=== PATIENT | female | born 1990 | race Caucasian/White ===

== ENCOUNTER 2023-04-02 19:05 | Outpatient (REF) | payer BC, SELFPAY ==
[2023-04-07 12:08] LABS: Age Gdln ACOG Testing Note (.); HPV Aptima Negative (Negative); IGP, Aptima HPV, rfx 16/18,45 Note (.)
== END 2023-04-02 19:06 | disposition home or self-care (01) ==
LOC: LAB 19:05
PROVIDERS: Visit Provider Obstetrics & Gynecology
DX: Z01.419 Encounter for gynecological examination (general) (routine) without abnormal findings (principal)
CPT/HCPCS: 87624; G0145

== ENCOUNTER 2023-04-09 17:57 | Outpatient (OUT) | payer BC, SELFPAY ==
--- NOTE | 2023-04-09 | US_ITS ---
The [address] [address] Patient Name: BRANDT OSORIO MRN: [id number] date: 1990 Sex: F Assigned Patient Location: Current Patient Location: Accession/Order Number: [id number] Exam Date: 04/09/2023 18:30 Report Date: 04/10/2023 06:46 At the request of: LILLIE ADAMS Procedure: US pelvis transvaginal EXAMINATION: US pelvis transvaginal HISTORY: Abnormal Uterine Bleeding, N93.9 , amenorrhea COMPARISON: No relevant comparison available. TECHNIQUE: Transabdominal and/or transvaginal sonographic examination was performed as indicated by examination type. FINDINGS: UTERUS: Normal size and appearance. Uterus size: 7.7 x 3.8 x 5.9 cm ENDOMETRIUM: Normal homogeneous appearance. Endometrial thickness: 11 mm RIGHT OVARY: Contains multiple small follicles. Blood flow present within ovary on color Doppler. Ovary size: 2.5 x 3.6 x 2.0 cm LEFT OVARY: Contains multiple small follicles. Duplex Doppler demonstrates normal waveform and flow; resistive index 0.6. Ovary size: 2.7 x 2.3 x 1.8 cm CUL-DE-SAC: Unremarkable. No significant free fluid. BLADDER: Unremarkable. OTHER: None. US/US pelvis transvaginal IMPRESSION: 1. Normal appearance of the uterus and endometrium. 2. Both ovaries contain multiple small follicles, but do not present the classic appearance for polycystic ovarian syndrome. Electronically authenticated by: WILIAN ROSAS Date: 04/10/2023 06:46
== END 2023-04-09 17:58 | disposition home or self-care (01) ==
PROVIDERS: Visit Provider Obstetrics & Gynecology
DX: N93.9 Abnormal uterine and vaginal bleeding, unspecified (principal)
CPT/HCPCS: 76830

== ENCOUNTER 2023-04-18 13:54 | Outpatient (OUT) | payer BC, SELFPAY ==
--- NOTE | 2023-04-18 14:02 | MM_ITS ---
Patient: BRANDT OSORIO Exam Date: 04/18/2023 : 1990 Gender:F Ordering : DR Shay Vaughn . Admission #: [id number] Family : Non-Staff Physician Order #: [id number] CLICK HERE TO VIEW EXAM RADIOLOGY REPORT PROCEDURE: MM TOMOSYNTHESIS DIAGNOSTIC BI, 04/18/2023, 14:11 US BREAST RT LIMITED, 04/18/2023, 14:35 COMPARISON: None. INDICATIONS: Breast Lump N63.15 Calculator Name NCI Breast Cancer Risk Assessment Tool 5 Year Breast Cancer Risk Not Applicable. Lifetime Breast Cancer Risk Not Applicable. Personal Breast Cancer No Personal Ovarian Cancer No Treatments None Family Cancers Mother with bile duct cancer at age 48; Grandfather-paternal with lung cancer at age 68. LOCATION: The [facility] BREAST COMPOSITION: Scattered areas fibroglandular density. FINDINGS: DIAGNOSTIC CATEGORY 2--BENIGN FINDING: Scattered benign-appearing lymph nodes are present. RIGHT BREAST: No significant suspicious finding. [place] marker indicates a palpable mass lower inner quadrant. No mammographic or ultrasound abnormality. Further evaluation should be based on clinical and physical exam LEFT BREAST: No significant suspicious finding. RECOMMENDATIONS: CLINICAL EVALUATION. PLEASE NOTE: A NORMAL MAMMOGRAM DOES NOT EXCLUDE THE POSSIBILITY OF BREAST CANCER. A CLINICALLY SUSPICIOUS PALPABLE LUMP SHOULD BE BIOPSIED. Dictated by: Nakul Silvestre MD on 04/18/2023 at 14:55 Approved by: Nakul Silvestre MD on 04/18/2023 at 14:57
--- NOTE | 2023-04-18 14:14 | US_ITS ---
Patient: BRANDT OSORIO Exam Date: 04/18/2023 : 1990 Gender:F Ordering : DR Shay Vaughn . Admission #: [id number] Family : Non-Staff Physician Order #: [id number] CLICK HERE TO VIEW EXAM RADIOLOGY REPORT PROCEDURE: MM TOMOSYNTHESIS DIAGNOSTIC BI, 04/18/2023, 14:11 US BREAST RT LIMITED, 04/18/2023, 14:35 COMPARISON: None. INDICATIONS: Breast Lump N63.15 Calculator Name NCI Breast Cancer Risk Assessment Tool 5 Year Breast Cancer Risk Not Applicable. Lifetime Breast Cancer Risk Not Applicable. Personal Breast Cancer No Personal Ovarian Cancer No Treatments None Family Cancers Mother with bile duct cancer at age 48; Grandfather-paternal with lung cancer at age 68. LOCATION: The [facility] BREAST COMPOSITION: Scattered areas fibroglandular density. FINDINGS: DIAGNOSTIC CATEGORY 2--BENIGN FINDING: Scattered benign-appearing lymph nodes are present. RIGHT BREAST: No significant suspicious finding. [place] marker indicates a palpable mass lower inner quadrant. No mammographic or ultrasound abnormality. Further evaluation should be based on clinical and physical exam LEFT BREAST: No significant suspicious finding. RECOMMENDATIONS: CLINICAL EVALUATION. PLEASE NOTE: A NORMAL MAMMOGRAM DOES NOT EXCLUDE THE POSSIBILITY OF BREAST CANCER. A CLINICALLY SUSPICIOUS PALPABLE LUMP SHOULD BE BIOPSIED. Dictated by: Nakul Silvestre MD on 04/18/2023 at 14:55 Approved by: Nakul Silvestre MD on 04/18/2023 at 14:57
== END 2023-04-18 13:55 | disposition home or self-care (01) ==
LOC: MAMMO 13:55
PROVIDERS: Visit Provider Obstetrics & Gynecology
DX: N63.15 Unspecified lump in the right breast, overlapping quadrants (principal); N63.14 Unspecified lump in the right breast, lower inner quadrant
CPT/HCPCS: 76642; 77066; G0279

== ENCOUNTER 2024-11-29 20:15 | Outpatient (REF) | payer BC, SELFPAY ==
--- OUTSIDE RECORDS SUMMARY | 2024-11-29 20:20 | XMS_ITS | CCD ---
Author Organization [facility] Care Team Providers Care Healthcare Representative Name Role Phone Unavailable Unavailable Unavailable Socrates, Bernarda F Unavailable Unavailable Socrates, Bernarda F Unavailable Unavailable Socrates, Bernarda F Unavailable Unavailable Socrates, Bernarda F Unavailable Unavailable Socrates, Bernarda F Unavailable Unavailable Socrates, Bernarda F Unavailable Unavailable Jose Cruz Martinez Primary Care Provider [phone] Jose Cruz Martinez MD Primary Care Provider Jose Cruz Martinez MD Primary Care Provider LOGAN RADFORD Attending Unavailable JUNIOR, FABIANA MARCELLA Referring Unavailable JUNIOR, FABIANA MARCELLA Admitting Unavailable JOSE CRUZ MARTINEZ Primary Care Unavailable SOCRATES, BERNARDA F. S. Admitting Unavailabl e SOCRATES, BERNARDA F. S. Attending Unavailabl e JOSE CRUZ MARTINEZ Primary Care Unavailable JOSE CRUZ MARTINEZ Primary Care Unavailable ZENAIDA LIZ Admitting Unavailable ZENAIDA LIZ Attending Unavailable JOSE CRUZ MARTINEZ Primary Care Unavailable MARIAH SINHA Attending Unavailable JUNIOR, FABIANA MARCELLA Admitting Unavailable JUNIOR, FABIANA MARCELLA Referring Unavailable MARCELLO BALTAZAR Attending Unavailable JOSE CRUZ MARTINEZ Primary Care Unavailable JUNIOR, FABIANA MARCELLA Referring Unavailable JUNIOR, FABIANA MARCELLA Admitting Unavailable MICHELLE, JOSE CRUZ Locke Primary Care Unavailable MARIAH SINHA Attending Unavailable JUNIOR, FABIANA MARCELLA Referring Unavailable JUNIOR, FABIANA MARCELLA Admitting Unavailable MICHELLE, JOSE CRUZ Locke Primary Care Unavailable FRANKY, MARCELLO Attending Unavailable JUNIOR, FABIANA MARCELLA Referring Unavailable JUNIOR, FABIANA MARCELLA Admitting Unavailable HEMEKENNA, JOSE CRUZ Locke Primary Care Unavailable MARCELLO BALTAZAR Attending Unavailable JUNIOR, FABIANA MARCELLA Referring Unavailable JUNIOR, FABIANA MARCELLA Admitting Unavailable [facility] [place] [facility] Primary Care Unavailable MARIAH SINHA Attending Unavailable JUNIOR, FABIANA MARCELLA Referring Unavailable JUNIOR, FABIANA MARCELLA Admitting Unavailable MARIAH SINHA Attending Unavailable JUNIOR, FABIANA MARCELLA Referring Unavailable JUNIOR, FABIANA MARCELLA Admitting Unavailable [facility] Primary Care Unavailable ALICE AZEVEDO Attending Unavailable HEMEYER, JOSE CRUZ Locke Primary Care Unavailable BRYAN, DR MOREIRA Admitting Unavailable BRYAN, DR MOREIRA Attending Unavailable HEMEYER, DR TAM Primary Care Unavailable BRYAN, DR MOREIRA Consulting Unavailable BRYAN, DR MOREIRA Admitting Unavailable BRYAN, DR MOREIRA Attending Unavailable HEMEYER, DR TAM Primary Care Unavailable BRYAN, DR MOREIRA Consulting Unavailable NEDRA HUMPHREY Consulting Unavailable BRYAN, DR MOREIRA Admitting Unavailable BRYAN, DR MOREIRA Attending Unavailable HEMEYER, DR TAM Primary Care Unavailable BRYAN, DR MOREIRA Consulting Unavailable BRYAN, DR MOREIRA Admitting Unavailable BRYAN, DR MOREIRA Attending Unavailable HEMEYER, DR TAM Primary Care Unavailable [facility] Primary Care Unavailable BERNARDA CROWELL Attending UnavailJose Cruz Cabrera MD Primary Care Provider Amy SIMPSON, Ronda Hays Unavailable Jose Cruz Martienz MD Primary Care Provider UNA JOHN Attending Unavailable NANDO PARRY Attending Unavailable UNA JOHN Attending Unavailable UNA JOHN Attending Unavailable IFRAH BLANCA Attending Unavailable UNA JOHN Attending Unavailable Medications Current Medications Medication Drug Class(es) Dates Sig (Normalized) Sig (Original) acetaminophen 325 mg oral tablet (4 sources) Start: 11-27-2020 End: 12-07-2020 take 2 tablets by mouth every four hours as needed acetaminophen (TYLENOL) 325 MG tablet Take 2 (two) tablets (650 mg total) by mouth every 4 (four) hours as needed . 30 tablet 0 11/27/2020 12/07/2020 Active Start: 11-25-2020 End: 11-27-2020 take 1 tablet by mouth every four hours as needed for pain 650 mg, Oral, Every 4 hours PRN, mild pain, Starting on 11/25/20 at 2035, End: 11-27-2020 take 2 tablets by mouth every six hours as needed for pain acetaminophen (TYLENOL) 500 MG tablet Indications: back pain Take 1,000 mg by mouth every 6 (six) hours as needed for pain Prn Reasons: backache. 0 11/27/2020 Discontinued (Stop Taking at Discharge) benzonatate 200 mg oral capsule (2 sources) Non-narcotic Antitussive Start: 05-08-2024 End: 05-15-2024 take 1 capsule by mouth three times daily as needed for cough benzonatate (Tessalon) 200 MG capsule Indications: Acute bronchitis, unspecified organism Take 1 capsule (200 mg) by mouth 3 (three) times a day as needed for cough for up to 7 days Do not crush or chew. 21 capsule 05/08/2024 05/15/2024 Active cefdinir 300 mg oral capsule (2 sources) Cephalosporin Antibacterial Start: 05-08-2024 End: 05-18-2024 take 1 capsule by mouth in the morning cefdinir (Omnicef) 300 MG capsule Indications: Acute bronchitis, unspecified organism Take 1 capsule (300 mg) by mouth in the morning and 1 capsule (300 mg) before bedtime. Do all this for 10 days. 20 capsule 05/08/2024 05/18/2024 Active ferrous sulfate 325 mg oral tablet (4 sources) take 1 tablet by mouth twice daily ferrous sulfate 325 (65 FE) MG tablet Take 325 mg by mouth 2 (two) times a day . 0 Active ibuprofen 600 mg oral tablet (3 sources) Nonsteroidal Anti-inflammatory Drug Start: 11-26-2020 End: 12-27-2020 take 1 tablet by mouth every six hours ibuprofen (ADVIL,MOTRIN) 600 MG tablet Take 1 (one) tablet (600 mg total) by mouth every 6 (six) hours . 120 tablet 0 11/27/2020 12/27/2020 Active Start: 11-25-2020 End: 11-25-2020 take 1 tablet by mouth every twenty-four hours as needed for pain 800 mg, Oral, Once as needed, mild pain, Starting on 11/25/20 at 0131, For 1 dose, Labor & Delivery Give with food. DO NOT GIVE WITH TORADOL Do Not Crush or Chew if administering orally due to bitter taste. May be crushed if given via tube. predniSONE 10 mg oral tablet (2 sources) Start: 05-08-2024 End: 05-16-2024 take 1 tablet by mouth three times daily, then take 1 tablet by mouth twice daily, then take 1 tablet by mouth once daily predniSONE (Deltasone) 10 MG tablet Indications: Acute bronchitis, unspecified organism Take 1 tablet (10 mg) by mouth 3 (three) times a day for 3 days, THEN 1 tablet (10 mg) 2 (two) times a day for 3 days, THEN 1 tablet (10 mg) Daily for 3 days. 18 tablet 05/08/2024 05/16/2024 Active vitamin with Ca-Iron-FA 27-1 mg Tab (4 sources) take 1 tablet by mouth once daily vitamin with Ca-Iron-FA 27-1 mg Tab Take 1 tablet by mouth daily . 0 Suspended take 1 tablet by mouth once cyrus y vitamin with Ca-Iron-FA 27-1 mg Tab Take 1 tablet by mouth daily . 0 Active 1 mg dose 1.5 ml semaglutide 1.34 mg/ml pen injector (15 sources) Start: 08-18-2024 End: 11-12-2024 inject 1 mg by subcutaneous injection every week semaglutide (Ozempic, 1 MG/DOSE,) 2 MG/1.5ML solution pen-injector Indications: Metabolic disorder, unspecified Inject 1 mg under the skin 1 (one) time per week 2 each 3 10/13/2024 Active Start: 07-21-2024 semaglutide (O zempic) 2 MG/1.5ML solution pen-injector Indications: Encounter for weight management FIRST MONTH inject 0.25 mg under the skin once weekly; then SECOND MONTH inject 0.5 mg under the skin 1 (one) time per week for 4 doses. 4.5 mL 1 07/21/2024 Active Completed/Discontinued Medications Medication Drug Class(es) Dates Sig (Normalized) Sig (Original) aluminum hydroxide 40 mg/ml / magnesium hydroxide 40 mg/ml / simethicone 4 mg/ml oral suspension (1 source) Start: 11-25-2020 End: 11-27-2020 take 30 mL by mouth every four hours as needed 30 mL, Oral, Every 4 hours PRN, indigestion, Starting on 11/25/20 at 2035, ampicillin 1000 mg in sodium chloride (NS) 0.9% 100 mL MBP (1 source) Start: 11-24-2020 End: 11-25-2020 take 1000 mg intravenously every four hours ampicillin 1000 mg in sodium chloride (NS) 0.9% 100 mL MBP ampicillin 2000 mg in sodium chloride (NS) 0.9% 100 mL MBP (1 source) Start: 11-24-2020 End: 11-24-2020 ampicillin 2000 mg in sodium chloride (NS) 0.9% 100 mL MBP brompheniramine maleate 0.4 mg/ml / dextromethorphan hydrobromide 2 mg/ml / pseudoephedrine hydrochloride 6 mg/ml oral solution (2 sources) alpha-Adrenergic Agonist, Uncompetitive C-ltgiep-S-aspartat e Receptor Antagonist, Sigma-1 Agonist Start: 08-01-2024 End: 08-08-2024 take 5-10 mL by mouth four times daily as needed for cough brompheniramine- pseudoephedrine- DM 30-2-10 MG/5ML syrup Indications: Cough, unspecified type , Influenza A Take 5-10 mL by mouth 4 (four) times a day as needed for cough or congestion for up to 7 days 118 mL 08/01/2024 08/08/2024 calcium chloride 0.0014 meq/ml / potassium chloride 0.004 meq/ml / sodium chloride 0.103 meq/ml / sodium lactate 0.028 meq/ml injectable solution (2 sources) Start: 11-25-2020 End: 11-25-2020 0-999 mL/hr, Intravenous, Continuous, Starting on 11/25/20 at 0230, L&D Pre-Delivery Run @ 125 mL/hr or as follows: Fo r stress, uterine tachysystole, non-reassuring status during induction or cervical-ripenin g, increase maintenance IV to 999 mL/hr. Upon resolution of tachysystole, or return to category 2 or above monitor strip, resume IV at previous rate. Start: 11-24-2020 End: 11-25-2020 lactated Ringers infusion ceFAZolin 2000 mg injection (1 source) Cephalosporin Antibacterial Start: 11-25-2020 End: 11-25-2020 ceFAZolin (ANCEF) IVPB 2 g (premix) Start: 11-25-2020 End: 11-25-2020 ceFAZolin (ANCEF) IVPB 2 g ( premix) diphenhydrAMINE (1 source) Histamine-1 Receptor Antagonist Start: 11-25-2020 End: 11-27-2020 take 1 tablet by mouth every six hours as needed diphenhydrAMINE (BENADRYL) tablet 25 mg docusate sodium 100 mg oral capsule (3 sources) Start: 11-25-2020 End: 12-07-2020 take 100 mg by mouth twice daily 100 mg, Oral, 2 times daily, First dose on 11/25/20 at 2130, Hold for loose stools DO NOT CRUSH OR CHEW. 1 ml HYDROmorphone hydrochloride 1 mg/ml injection (1 source) Opioid Agonist Start: 11-25-2020 End: 11-25-2020 HYDROmorphone (DILAUDID) injection 1 mg Start: 11-25-2020 End: 11-25-2020 HYDROmorphone (DILAUDID) inj ection 1 mg 24 hr metFORMIN hydrochloride 500 mg extended release oral tablet (5 sources) Biguanide Start: 04-22-2023 End: 07-21-2024 take 1 tablet by mouth every twenty-four hours at mealtime metFORMIN XR (Glucophage-XR) 500 MG 24 hr tablet Indications: Metabolic disorder, unspecified Take 1 tablet (500 mg) by mouth in the evening. Take with meals. Do not crush, chew, or split. 30 tablet 11 04/22/2023 07/21/2024 Discontinued (Other) nabumetone 750 mg oral tablet (5 sources) Nonsteroidal Anti-inflammatory Drug Start: 02-19-2022 End: 07-21-2024 nabumetone (Relafen) 750 MG tablet 1 (one) time each day at the same time 02/19/2022 07/21/2024 Discontinued (Other) 1 ml nalbuphine hydrochloride 10 mg/ml injection (3 sources) Opioid Agonist/Antagonis t Start: 11-25-2020 End: 11-25-2020 take 10 mg intravenously every three hours as needed nalbuphine (NUBAIN) injection 10 mg Start: 11-24-2020 End: 11-24-2020 nalbuphine (NUBAIN) 10 mg/mL injection - ADS Override Pull Start: 11-24-2020 End: 11-25-2020 take 5 mg intravenously every three hours as needed nalbuphine (NUBAIN) injection 5 mg naloxone (NARCAN) injection 0.1 mg (1 source) Start: 11-26-2020 End: 11-27-2020 naloxone (NARCAN) injection 0.1 mg oxyCODONE hydrochloride 5 mg oral tablet (2 sources) Opioid Agonist Start: 11-26-2020 End: 11-26-2020 oxyCODONE (ROXICODONE) immediate release tablet 5 mg Start: 11-26-2020 End: 11-26-2020 oxyCODONE (ROXICODONE) immed iate release tablet 5 mg oxytocin in lactated ringers (PITOCIN) 20 unit/1,000 mL infusion (1 source) Start: 11-25-2020 End: 11-25-2020 oxytocin in lactated ringers (PITOCIN) 20 unit/1,000 mL infusion polyethylene glycol 3350 [id number] mg powder for oral solution (1 source) Osmotic Laxative Start: 11-26-2020 End: 11-27-2020 17 g, Oral, Daily, First dose on 11/26/20 at 0900, rho(d) immune globulin (RHOPHYLAC) injection 300 mcg (1 source) Start: 11-25-2020 End: 11-27-2020 inject 300 ug by intramuscular injection every twenty-four hours as needed rho(d) immune globulin (RHOPHYLAC) injection 300 mcg simethicone 80 mg chewable tablet (1 source) Start: 11-25-2020 End: 11-27-2020 80 mg, Oral, After meals as needed, flatulence, gas discomfort, Starting on 11/25/20 at 2035, 1000 ml sodium chloride 9 mg/ml injection (1 source) Start: 11-25-2020 End: 11-27-2020 0-150 mL/hr, Intravenous, As needed, To flush line after IV infusions when no maintenance IV ordered or a compatibility issue. Infuse 20ml at the same rate as the secondary infusion, Starting on 11/25/20 at 2034, L&D Post-Delivery Run as Primary IV. NOT intended for KVO. sodium chloride 0.9 % (NS) with ampicillin (OMNIPEN) - ADS Override Pull (1 source) Start: 11-24-2020 End: 11-24-2020 sodium chloride 0.9 % (NS) with ampicillin (OMNIPEN) - ADS Override Pull Problems Active Problems Problem Classification Problem Date Documented Date Episodic/Chronic Acute bronchitis (2 sources) Acute bronchitis; Translations: [Acute bronchitis, unspecified] 05-08-2024 Episodic Administrative/social admission (4 sources) Patient encounter status; Translations: [Persons encountering health services in other specified circumstances] 07-21-2024 Episodic Early or threatened labor (2 sources) Premature labor; Translations: [ labor without delivery, third trimester] Onset: 11-25-2020 Episodic Immunizations and screening for infectious disease (1 source) Encounter for screening for human papillomavirus (HPV); Translations: [ENC SCREENING HUMAN PAPILLOMAVIRUS] Onset: 01-26-2022 Episodic Influenza (2 sources) Influenza due to Influenza A virus; Translations: [Influenza due to other identified influenza virus with other respiratory manifestations] 08-01-2024 Episodic Menstrual disorders (4 sources) Irregular menstruation, unspecified; Translations: [IRREGULAR MENSTRUATION UNSPECIFIED] Onset: 04-16-2022 Chronic Other connective tissue disease (4 sources) Trochanteric bursitis of left hip; Translations: [Trochanteric bursitis, left hip] Onset: 09-11-2020 Episodic Other connective tissue disease (15 sources) Trochanteric bursitis of left hip; Translations: [Trochanteric bursitis of left hip] Onset: 09-11-2020 09-11-2020 Other endocrine disorders (5 sources) Polycystic ovarian syndrome; Translations: [POLYCYSTIC OVARIAN SYNDROME] Onset: 02-19-2022 Chronic Other lower respiratory disease (2 sources) Cough; Translations: [Cough, unspecified type] 08-01-2024 Episodic Other non-traumatic joint disorders (19 sources) Hip pain; Translations: [Pain in left hip] Onset: 09-11-2020 09-11-2020 Episodic Other nutritional; endocrine; and metabolic disorders (12 sources) Obesity caused by energy imbalance; Translations: [Other obesity due to excess calories] Onset: 01-28-2024 01-28-2024 Chronic Other nutritional; endocrine; and metabolic disorders (2 sources) Metabolic disease; Translations: [Metabolic disorder, unspecified] Onset: 10-13-2024 10-13-2024 Chronic Other screening for suspected conditions (not mental disorders or infectious disease) (4 sources) Encounter for screening for malignant neoplasm of cervix; Translations: [ENC SCREENING MALIG NEOPLASM CERV] Onset: 01-23-2022 Episodic Otitis media and related conditions (2 sources) Acute bilateral otitis media ; Translations: [Otitis media, unspecified, bilateral] 05-08-2024 Episodic Residual codes; unclassified (2 sources) Past history of procedure; Translations: [Personal history of other complications of , childbirth and the puerperium] Onset: 11-25-2020 Episodic Past or Other Problems Problem Classification Problem Date Documented Da te Episodic/Chronic Hypertension complicating ; childbirth and the puerperium (12 sources) Pre-eclampsia; Translations: [Unspecified pre-eclampsia, unspecified trimester] Onset: 11-29-2020 01-28-2024 Episodic Other and delivery including normal (2 sources) Encounter for routine follow-up; Translations: [Encounter for routine follow-up] Onset: 01-15-2021 Episodic Results Test Name Value Interpretation Reference Range Facility No Panel InformationOrdered By: Basim Parekh on 08-01-2024 INFLUENZA A Positive Negative [facility] INFLUENZA B Negative Negative [facility] Interpretation and review of laboratory results Abnormal [facility] DHEA SERUMon 04-21-2022 Dehydroepiandrosterone (DHEA) 283 ng/dL Normal 31-701 [facility] Comment on above: Result Comment: Age 1 - 5 years 0 - 67 6 - 7 years 0 - 110 8 - 10 years 0 - 185 11 - 12 years 0 - 201 13 - 14 years 0 - 318 15 - 16 years 39 - 481 17 - 19 years 40 - 491 >19 years 31 - 701 Performed By: #### D CAMILLE. #### [facility] [address] [place] [address] Dr. Kenji Olsen DHEA-SULFATEon 04-17-2022 DHEA-Sulfate 294.0 ug/dL Normal 84.8-378.[address] [facility] Comment on above: Performed By: #### D СЕРГЕЙ #### [facility] [address] [place] [address] Dr. Kenji Olsen FSHon 04-17-2022 FSH 2.2 mIU/mL Normal [facility] Comment on above: Result Comment: Adul t Female: Follicular phase 3.5 - 12.5 Ovulation phase 4.7 - 21.5 Luteal phase 1.7 - 7.7 Postmenopausal 25.8 - 134.8 Performed By: #### L BCFS #### [facility] [address] [place] [address] Dr. Kenji Olsen LUTEINIZING HORMONE (LH)on 1 LH 8.0 mIU/mL Normal [facility] Comment on above: Result Comment: Adul t Female: Follicular phase 2.4 - 12.6 Ovulation phase 14.0 - 95.6 Luteal phase 1.0 - 11.4 Postmenopausal 7.7 - 58.5 Performed By: #### L BCLH #### [facility] [address] [place] [address] Dr. Kenji Olsen CBC AUTO DIFFon 04-16-2022 BASO # 0.0 103/ul Normal 0.0-0.1 [facility] Comment on above: Performed By: #### C BC #### [facility] [address] [place] [address] Dr. Kenji Olsen Basophils/100 WBC (Bld) 0.4 % Normal 0.2-2.0 [facility] Comment on above: Performed By: #### C BC #### [facility] [address] [place] [address] Dr. Kenji Olsen EO # 0.3 103/ul Normal 0.0-0.7 [facility] Comment on above: Performed By: #### C BC #### [facility] [address] [place] [address] Dr. Kenji Olsen Eosinophils/100 WBC (Bld) 3.4 % Normal 0.9-7.0 [facility] Comment on above: Performed By: #### C BC #### [facility] [address] [place] [address] Dr. Kenji Olsen Erythrocyte distribution width (RBC) [Ratio] 14.4 % Normal 11.0-15.0 [facility] Comment on above: Performed By: #### C BC #### [facility] [address] [place] [address] Dr. Kenji Olsen Hematocrit (Bld) [Volume fraction] 41.5 % Normal 36.0-48.0 [facility] Comment on above: Performed By: #### C BC #### [facility] [address] [place] [address] Dr. Kenji Olsen Hemoglobin (Bld) [Mass/Vol] 13.1 g/dL Normal 12.0-16.0 [facility] Comment on above: Performed By: #### C BC #### [facility] [address] [place] [address] Dr. Kenji Olsen IG # 0.03 10e3/ul Normal 0.00-0.03 [facility] Comment on above: Performed By: #### C BC #### [facility] [address] [place] [address] Dr. Kenji Olsen IG % 0.3 % Normal 0.0-0.5 [facility] Comment on above: Performed By: #### C BC #### [facility] [address] [place] [address] Dr. Kenji Olsen LYMPH # 3.3 103/ul Normal 1.2-3.8 [facility] Comment on above: Performed By: #### C BC #### [facility] [address] [place] [address] Dr. Kenji Olsen Lymphocytes/100 WBC (Bld) 33.1 % Normal 20.5-60.0 [facility] Comment on above: Performed By: #### C BC #### [facility] [address] [place] [address] Dr. Kenji Olsen MANUAL DIFF REQ NO Normal [facility] Comment on above: Performed By: #### C BC #### [facility] [address] [address] [address] Kenji Olsen MCH (RBC) [Entitic mass] 26.5 pg Critically low 26.7-34 .0 [facility] Comment on above: Performed By: #### C BC #### [facility] [address] [address] [address] Kenji Olsen MCHC (RBC) [Mass/Vol] 31.6 g/dL Normal 29.9-35.2 [facility] Comment on above: Performed By: #### C BC #### [facility] [address] [place] [address] Dr. Kenji Olsen MCV (RBC) [Entitic vol] 83.8 fL Normal 81.0-99.0 [facility] Comment on above: Performed By: #### C BC #### [facility] [address] [place] [address] Dr. Kenji Olsen MONO # 0.5 103/ul Normal 0.3-0.8 [facility] Comment on above: Performed By: #### C BC #### [facility] [address] [place] [address] Dr. Kenji Olsen Monocytes/100 WBC (Bld) 4.9 % Normal 1.7-12.0 [facility] Comment on above: Performed By: #### C BC #### [facility] [address] [place] [address] Dr. Kenji Olsen NEUT # 5.7 103/ul Normal 1.4-6.5 [facility] Comment on above: Performed By: #### C BC #### [facility] [address] [place] [address] Dr. Kenji Olsen Neutrophils/100 WBC (Bld) 57.9 % Normal 43.0-75.0 [facility] Comment on above: Performed By: #### C BC #### [facility] [address] [place] [address] Dr. Kenji Olsen Platelet mean volume (Bld) [Entitic vol] 9.2 fL Critically low 9.5-13.5 [facility] Comment on above: Performed By: #### C BC #### [facility] [address] [address] [address] Kenji Olsen PLT 392 103/ul Normal 150-450 [facility] Comment on above: Performed By: #### C BC #### [facility] [address] [address] [address] Kenji Olsen RBC 4.95 106/ul Normal 4.20-5.40 [facility] Comment on above: Performed By: #### C BC #### [facility] [address] [address] [address] Kenji Olsen WBC 9.9 103/ul Normal 4.0-11.0 [facility] Comment on above: Performed By: #### C BC #### [facility] [address] [place] [address] Dr. Kenji Olsen PREG QUANT HCGon 04-16-2022 HCG QUANT <1 Normal [facility] Comment on above: Performed By: #### P REGQNT, TSH #### [facility] [address] [place] [address] Dr. Kenji Olsen HCG RANGE SEE BELOW Normal [facility] Comment on above: Result Comment: 5-50 0.2-1 WEEK 50-500 1-2 WEEKS 100-5,000 2-3 WEEKS 500-10,000 3-4 WEEKS 1,000-50,000 4-5 WEEKS 10,000-100,000 5-6 WEEKS 15,000-200,000 6-8 WEEKS 10,000-100,000 2-3 MONTHS Performed By: #### P REGQNT, TSH #### [facility] [address] [place] [address] Dr. Kenji Olsen TSHon 04-16-2022 TSH 0.835 uIU/mL Normal 0.358-3.[address] [facility] Comment on above: Performed By: #### P REGQNT, TSH #### [facility] [address] [place] [address] Dr. Kenji Olsen US PELVIS AND TRANSVAGon US PELVIS AND TRANSVAG EXAM: Pelvic ultrasound HISTORY: . Polycystic ovary syndrome . COMPARISON: None. TECHNIQUE: Transabdominal and transvaginal scanning was performed FINDINGS: Scanning of the pelvis demonstrates an anteverted uterus ring 7 x 4.3 x 3.3 cm. Endometrial complex measures 8 mm. Right ovary measures 3.6 x 2.8 x 2.2 cm. Color-flow is noted. Resistive indexes 0.55. No masses are noted. There are a few small follicles. Left ovary measures 3 x 2.7 x 2 cm. Color-flow is noted. Resistive indexes 0.58. There are a few small follicles. No fluid is noted in the cul-de-sac. IMPRESSION: 1. Normal-appearing uterus. 2. Normal-appearing ovaries. Electronically authenticated by: NEDRA HUMPHREY Date: 2022-02-20 08:11 [facility] PAP ACOG PANEL 2: 23 to 31on 01-28-2022 . . Normal [facility] Comment on above: Performed By: #### [id number] #### [facility] [address] [address] [address] Kenji Olsen Age Gdln ACOG Testing 21-29 Normal [facility] Comment on above: Performed By: #### [id number] #### [facility] [address] [id number] Dr. Kenji Olsen DIAGNOSIS: Comment Normal [facility] Comment on above: Result Comment: NEGA TIVE FOR INTRAEPITHELIAL LESION OR MALIGNANCY. Performed By: #### [id number] #### [facility] [address] [address] [address] Kenji Olsen Methodology: Comment Normal [facility] Comment on above: Result Comment: This liquid based ThinPrep(R) pap test was screened with the use of an image guided system. Performed By: #### [id number] #### [facility] [address] [place] [address] Dr. Kenji Olsen Note: Comment Normal [facility] Comment on above: Result Comment: The Pap smear is a screening test designed to aid in the detection of premalignant and malignant conditions of the uterine cervix. It is not a diagnostic procedure and should not be used as the sole means of detecting cervical cancer. Both false-positive and false-negative reports do occur. . Performed By: #### [id number] #### [facility] [address] [place] [address] Dr. Kenji Olsen Performed by: Comment Normal [facility] Comment on above: Result Comment: Amy Arechiga Natural Sciences Manager (ASCP) Performed By: #### 4 [id number] #### [facility] [address] [place] [address] Dr. Kenji Olsen Reflex Criteria: Comment Normal [facility] Comment on above: Result Comment: The HPV DNA reflex criteria were not met with this specimen result therefore, no HPV testing was performed. . Performed By: #### 4 [id number] #### [facility] [address] [place] [address] Dr. Kenji Olsen Specimen adequacy: Comment Normal [facility] Comment on above: Result Comment: Sati sfactory for evaluation. Endocervical and/or squamous metaplastic cells (endocervical component) are present. Performed By: #### 4 [id number] #### [facility] [address] [place] [address] Dr. Kenji Olsen Alkaline Phosphataseon 05-29 ALP [Catalytic activity/Vol] 118 U/L High 32-92 [facility] Comment on above: Performed By: #### A PHIL BILIT, UNA #### [facility] [address] [place] [address] [place] Amylaseon 05-29-2021 Amylase [Catalytic activity/Vol] 43 U/L Normal 28-100 [facility] Comment on above: Result Comment: PERF ORMED BY: [facility] [address] [place] [address] PATHOLOGIST RECREATIONAL COUNSELOR KEYON OROPEZA M.D. Performed By: #### A LP BILIT, UNA #### [facility] [address] [place] [address] [place] Bilirubin,Totalon 05-29-2021 Bilirubin [Mass/Vol] 0.3 mg/dL Normal 0.3-1.2 [facility] Comment on above: Performed By: #### A LP, KYRA, UNA #### [facility] [address] [place] [address] [place] HCG,Urineon 05-29-2021 Beta HCG ( test) Ql (U) Negative Normal [facility] Comment on above: Result Comment: PERF ORMED BY: [address] [place] [address] PATHOLOGIST RECREATIONAL COUNSELOR KEYON OROPEZA M.D. Performed By: #### U HCG #### [facility] [address] [place] [address] [place] Jose E 05-29-2021 L - -------- Specimen: [id number] Received: 05/29/21 Status: ELIZABETH Tabareselmo Num: [id number] Spec Type: Surgical Subm Dr: Sriram León DO Tissues: A Gallbladder (GALLBLADDER) Procedures: HE Stain, Gross/Micro L3 -------- Patient Age/Sex Location Account Attending Physician -------- Brandt Peres [place] [id number] Sriram León, DO -------- SPEC NUM: [id number] RECD: 05/29/21 STATUS: ELIZABETH PACE NUM: [id number] NADEEN: 05/29/21- DR: Sriram Lóen DO ENTERED: 05/29/[address]: SINDY TYPE: Surgical DEPT: S ORDERED: HE Stain, Gross/Micro L3 ORDERED: HE Stain, Gross/Micro L3 Pathological Diagnosis Gallbladder, cholecystectomy: - Cholelithiasis, cholesterolosis and focal mucosal intestinal metaplasia. - One lymph node, negative for malignancy. Clinical Information Cholelithiasis Gross Description Received in formalin labeled with the patient's name, number and gallbladder is a 8.8 x 3.2 x 2.5 cm intact and distended gallbladder. The serosa is hidalgo-pink, finely vascularized and smooth, while the adventitia is finely roughened. The specimen is opened to reveal a hidalgo to slightly speckled yellow and soft mucosa. There is a wall thickness averaging 0.2 cm. Within the lumen is green tenacious bile and a 2.2 cm ovoid smooth green cholelith. No lesions are identified. A 0.8 cm periductal lymph node is identified. [employer] sections are submitted in one cassette labeled A1. Type of Fixative: 10% Neutral Buffered Formalin (KOFI/RUPINDER) Microscopic Description One glass slide with H E stained material has been examined. The microscopic findings support the above pathologic diagnosis. -------- Specimen: [id number] Received: 05/29/21 Status: ELIZABETH Pace Num: [id number] Spec Type: Surgical Subm Dr: Sriram León DO Tissues: A Gallbladder (GALLBLADDER) Procedures: HE Stain, Gross/Micro L3 -------- Patient: Brandt Peres [id number] (Continued) -------- Specimen: [id number] Received: 05/29/21 (Continued) Signed (signature on file) Julio Grullon MD 05/30/21 1325 -------- Specimen: [id number] Received: 05/29/21 Status: ELIZABETH Pace Num: [id number] Spec Type: Surgical Subm Dr: Sriram León DO Tissues: A Gallbladder (GALLBLADDER) Procedures: HE Stain, Gross/Micro L3 -------- Patient: Brandt Peres [id number] (Continued) -------- Specimen: [id number] Received: 05/29/21 (Continued) CPT Codes 65398 -------- -------- Specimen: [id number] Received: 05/29/21 Status: ELIZABETH Pace Num: [id number] Spec Type: Surgical Subm Dr: Sriram León DO Tissues: A Gallbladder (GALLBLADDER) Procedures: HE Stain, Gross/Micro L3 -------- Patient: Brandt Peres [id number] (Continued) -------- Signed (signature on file) Julio Grullon MD 05/30/[address] [facility] [place] [place] SARS-CoV-2 (COVID-19) RNA VIDHI+probe Ql (Unsp spec) Negative Normal Negative [facility] Comment on above: Order Comment: Healt hcare Worker?: N Result Comment: Testing for SARS-CoV-2 by RT-PCR This test was developed and its performance characteristics determined by [employer]) and validated at the [facility]. This test has not been FDA cleared or approved. This test has been authorized by FDA under an Emergency Use Authorization (EUA). This test has been validated in accordance with the FDA's Guidance Document (Policy for Diagnostics Testing in Laboratories Certified to Perform High Complexity Testing under CLIA prior to Emergency Use Authorization for Coronavirus Disease-2019 during the Public Health Emergency) issued on September 30, 2019. This test is only authorized for the duration of time the declaration that circumstances exist justifying the authorization of the emergency use of in vitro diagnostic tests for detection of SARS-CoV-2 virus and/or diagnosis of COVID-19 infection under section 564(b)(1) of the Act, 21 U.S.C. 360bbb-3(b)(1), unless the authorization is terminated or revoked sooner. PERFORMED BY: [facility] [place] [address] PATHOLOGIST RECREATIONAL COUNSELOR KEYON OROPEZA M.D. Performed By: #### C OVID 19 [facility] #### [facility] [address] Comprehensive metabolic 2000 panelOrdered By: Soo Carroll on 11-27-2020 Albumin [Mass/Vol] 2.9 g/dL Low 3.2 - 5.2 g/dL [facility] ALP [Catalytic activity/Vol] 148 U/L High 40 - 140 U/L [facility] ALT [Catalytic activity/Vol] 139 U/L High 0 - 40 U/L [facility] Anion gap [Moles/Vol] 15 mmol/L 10 - 2 0 mmol/L [facility] AST [Catalytic activity/Vol] 107 U/L High 0 - 45 U/L [facility] Bilirubin [Mass/Vol] 0.2 mg/dL 0.0 - 1 .3 mg/dL [facility] Calcium [Mass/Vol] 9.0 mg/dL 8.4 - 10. 2 mg/dL [facility] Chloride [Moles/Vol] 106 mmol/L 98 - 10 8 mmol/L [facility] Creatinine [Mass/Vol] 0.51 mg/dL 0.40 - 1.10 [facility] GFR/1.73 sq M.predicted CKD-EPI (S/P/Bld) [Vol rate/Area] 131 >=60 mL/min/1.73 m2 [facility] Glucose [Mass/Vol] 80 mg/dL 65 - 99 mg/dL [facility] HCO3 [Moles/Vol] 23 mmol/L 21 - 32 mmol/L [facility] Interpretation and review of laboratory results Abnormal [facility] Potassium [Moles/Vol] 3.8 mmol/L 3.5 - 5.1 mmol/L [facility] Protein [Mass/Vol] 5.8 g/dL Low 6.0 - 8.0 g/dL [facility] Sodium [Moles/Vol] 140 mmol/L 135 - 145 mmol/L [facility] Urea nitrogen [Mass/Vol] 7 mg/dL Low 8 - 25 mg/d L [facility] Urea nitrogen/Creatinine [Mass ratio] 13.7 mg/mg [facility] The eGFR should be used for monitoring renal function only and not for medication dosing. [facility] CBC panel Auto (Bld)Ordered By: Steve Mendoza on 11-26-2020 Erythrocyte distribution width (RBC) [Entitic vol] 15.7 % High 11.6 - 14.8 % [facility] Hematocrit (Bld) [Volume fraction] 27.8 % Low 36.0 - 46.0 % [facility] Comment on above: Results checked Hemoglobin (Bld) [Mass/Vol] 8.8 g/dL Low 12.0 - 16.0 g/dL [facility] Interpretation and review of laboratory results Abnormal [facility] MCH (RBC) [Entitic mass] 27.1 pg 26. 0 - 34.0 pg [facility] MCHC (RBC) [Mass/Vol] 31.7 g/dL 31.0 - 37.0 g/dL [facility] MCV (RBC) [Entitic vol] 85.5 fL 80.0 - 100.0 fL [facility] Nucleated RBC (Bld) [#/Vol] 0.00 10*3/uL [facility] Nucleated RBC/100 WBC (Bld) [Ratio] 0.0 % [facility] Platelet mean volume (Bld) [Entitic vol] 10.7 fL 9.4 - 12.4 fL [facility] Platelets (Bld) [#/Vol] 309 10*3/uL [facility] RBC (Bld) [#/Vol] 3.25 10*6/uL Low [facility] ealt WBC (Bld) [#/Vol] 15.64 10*3/uL High [facility] Comprehensive metabolic 2000 panelOrdered By: Steve Mendoza on 11-26-2020 Albumin [Mass/Vol] 2.4 g/dL Low 3.2 - 5.2 g/dL [facility] ALP [Catalytic activity/Vol] 142 U/L High 40 - 140 U/L [facility] ALT [Catalytic activity/Vol] 143 U/L High 0 - 40 U/L [facility] Anion gap [Moles/Vol] 15 mmol/L 10 - 2 0 mmol/L [facility] AST [Catalytic activity/Vol] 174 U/L High 0 - 45 U/L [facility] Bilirubin [Mass/Vol] 0.3 mg/dL 0.0 - 1 .3 mg/dL [facility] Calcium [Mass/Vol] 8.5 mg/dL 8.4 - 10. 2 mg/dL [facility] Chloride [Moles/Vol] 111 mmol/L High 98 - 10 8 mmol/L [facility] Creatinine [Mass/Vol] 0.52 mg/dL 0.40 - 1.10 [facility] GFR/1.73 sq M.predicted CKD-EPI (S/P/Bld) [Vol rate/Area] 130 >=60 mL/min/1.73 m2 [facility] Glucose [Mass/Vol] 86 mg/dL 65 - 99 mg/dL [facility] HCO3 [Moles/Vol] 21 mmol/L 21 - 32 mmol/L [facility] Interpretation and review of laboratory results Abnormal [facility] Potassium [Moles/Vol] 3.8 mmol/L 3.5 - 5.1 mmol/L [facility] Protein [Mass/Vol] 5.0 g/dL Low 6.0 - 8.0 g/dL [facility] Sodium [Moles/Vol] 143 mmol/L 135 - 145 mmol/L [facility] Urea nitrogen [Mass/Vol] 5 mg/dL Low 8 - 25 mg/d L [facility] Urea nitrogen/Creatinine [Mass ratio] 9.6 mg/mg Low [facility] The eGFR should be used for monitoring renal function only and not for medication dosing. [facility] Blood type and Indirect anti body screen panel (Bld)Ordered By: Iris Mcintosh on 11-25-2020 ABO and Rh group Nom (Bld) Blood group A Rh(D) positive [facility] Blood group antibody screen Ql Negative [facility] Specimen Expires 11/28/2020 23:59 EST [facility] CBC panel Auto (Bld)Ordered By: Becca Rogers on 11-25-2020 Erythrocyte distribution width (RBC) [Entitic vol] 15.4 % High 11.6 - 14.8 % [facility] Hematocrit (Bld) [Volume fraction] 37.7 % 36.0 - 46.0 % [facility] Hemoglobin (Bld) [Mass/Vol] 10.9 g/dL Low 12.0 - 16.0 g/dL [facility] Interpretation and review of laboratory results Abnormal [facility] MCH (RBC) [Entitic mass] 26.5 pg 26. 0 - 34.0 pg [facility] MCHC (RBC) [Mass/Vol] 28.9 g/dL Low 31.0 - 37.0 g/dL [facility] MCV (RBC) [Entitic vol] 91.5 fL 80.0 - 100.0 fL [facility] Comment on above: Results checked Nucleated RBC (Bld) [#/Vol] 0.00 10*3/uL [facility] Nucleated RBC/100 WBC (Bld) [Ratio] 0.0 % [facility] Platelet mean volume (Bld) [Entitic vol] 10.6 fL 9.4 - 12.4 fL [facility] Platelets (Bld) [#/Vol] 338 10*3/uL [facility] RBC (Bld) [#/Vol] 4.12 10*6/uL [facility] ealth WBC (Bld) [#/Vol] 20.86 10*3/uL [facility] CBC panel Auto (Bld)Ordered By: Iris Mcintosh on 11-25-2020 Erythrocyte distribution width (RBC) [Entitic vol] 15.4 % High 11.6 - 14.8 % [facility] Hematocrit (Bld) [Volume fraction] 36.0 % 36.0 - 46.0 % [facility] Hemoglobin (Bld) [Mass/Vol] 11.6 g/dL Low 12.0 - 16.0 g/dL [facility] Interpretation and review of laboratory results Abnormal [facility] MCH (RBC) [Entitic mass] 27.2 pg 26. 0 - 34.0 pg [facility] MCHC (RBC) [Mass/Vol] 32.2 g/dL 31.0 - 37.0 g/dL [facility] MCV (RBC) [Entitic vol] 84.5 fL 80.0 - 100.0 fL [facility] Nucleated RBC (Bld) [#/Vol] 0.00 10*3/uL [facility] Nucleated RBC/100 WBC (Bld) [Ratio] 0.0 % [facility] Platelet mean volume (Bld) [Entitic vol] 10.8 fL 9.4 - 12.4 fL [facility] Platelets (Bld) [#/Vol] 335 10*3/uL [facility] RBC (Bld) [#/Vol] 4.26 10*6/uL [facility] ealt WBC (Bld) [#/Vol] 19.27 10*3/uL [facility] Comprehensive metabolic 2000 panelOrdered By: Becca Rogers on 11-25-2020 Albumin [Mass/Vol] 3.0 g/dL Low 3.2 - 5.2 g/dL [facility] ALP [Catalytic activity/Vol] 199 U/L High 40 - 140 U/L [facility] ALT [Catalytic activity/Vol] 124 U/L High 0 - 40 U/L [facility] Anion gap [Moles/Vol] 18 mmol/L 10 - 2 0 mmol/L [facility] AST [Catalytic activity/Vol] 150 U/L High 0 - 45 U/L [facility] Bilirubin [Mass/Vol] 0.5 mg/dL 0.0 - 1 .3 mg/dL [facility] Calcium [Mass/Vol] 9.0 mg/dL 8.4 - 10. 2 mg/dL [facility] Chloride [Moles/Vol] 105 mmol/L 98 - 10 8 mmol/L [facility] Creatinine [Mass/Vol] 0.45 mg/dL 0.40 - 1.10 [facility] GFR/1.73 sq M.predicted CKD-EPI (S/P/Bld) [Vol rate/Area] 137 >=60 mL/min/1.73 m2 [facility] Glucose [Mass/Vol] 98 mg/dL 65 - 99 mg/dL [facility] HCO3 [Moles/Vol] 19 mmol/L Low 21 - 32 mmol/L [facility] Interpretation and review of laboratory results Abnormal [facility] Potassium [Moles/Vol] 4.2 mmol/L 3.5 - 5.1 mmol/L [facility] Protein [Mass/Vol] 6.1 g/dL 6.0 - 8.0 g/dL [facility] Sodium [Moles/Vol] 138 mmol/L 135 - 145 mmol/L [facility] Urea nitrogen [Mass/Vol] 5 mg/dL Low 8 - 25 mg/d L [facility] Urea nitrogen/Creatinine [Mass ratio] 11.1 mg/mg [facility] The eGFR should be used for monitoring renal function only and not for medication dosing. [facility] Comprehensive metabolic 2000 panelOrdered By: Iris Mcintosh on 11-25-2020 Albumin [Mass/Vol] 3.5 g/dL 3.2 - 5.2 g/dL [facility] ALP [Catalytic activity/Vol] 218 U/L High 40 - 140 U/L [facility] ALT [Catalytic activity/Vol] 116 U/L High 0 - 40 U/L [facility] Anion gap [Moles/Vol] 17 mmol/L 10 - 2 0 mmol/L [facility] AST [Catalytic activity/Vol] 128 U/L High 0 - 45 U/L [facility] Bilirubin [Mass/Vol] 0.4 mg/dL 0.0 - 1 .3 mg/dL [facility] Calcium [Mass/Vol] 9.2 mg/dL 8.4 - 10. 2 mg/dL [facility] Chloride [Moles/Vol] 106 mmol/L 98 - 10 8 mmol/L [facility] Creatinine [Mass/Vol] 0.37 mg/dL Low 0.40 - 1.10 [facility] GFR/1.73 sq M.predicted CKD-EPI (S/P/Bld) [Vol rate/Area] 146 >=60 mL/min/1.73 m2 [facility] Glucose [Mass/Vol] 96 mg/dL 65 - 99 mg/dL [facility] HCO3 [Moles/Vol] 19 mmol/L Low 21 - 32 mmol/L [facility] Interpretation and review of laboratory results Abnormal [facility] Potassium [Moles/Vol] 3.9 mmol/L 3.5 - 5.1 mmol/L [facility] Protein [Mass/Vol] 6.7 g/dL 6.0 - 8.0 g/dL [facility] Sodium [Moles/Vol] 138 mmol/L 135 - 145 mmol/L [facility] Urea nitrogen [Mass/Vol] 5 mg/dL Low 8 - 25 mg/d L [facility] Urea nitrogen/Creatinine [Mass ratio] 13.5 mg/mg [facility] The eGFR should be used for monitoring renal function only and not for medication dosing. [facility] LDHOrdered By: Becca Rogers on 11-25-2020 LDH Lactate to pyruvate reaction [Catalytic activity/Vol] 317 U/L High 100 - 250 U/L [facility] Comment on above: Slightly Hemolyzed LDHOrdered By: Iris diane 11-25-2020 LDH Lactate to pyruvate reaction [Catalytic activity/Vol] 353 U/L High 100 - 250 U/L [facility] Comment on above: Slightly Hemolyzed LDH Lactate to pyruvate reac tion [Catalytic activity/Vol]Ordered By: Becca Rogers on 11-25-2020 Interpretation and review of laboratory results Abnormal [facility] LDH Lactate to pyruvate reac tion [Catalytic activity/Vol]Ordered By: Iris Mcintosh on 11-25-2020 Interpretation and review of laboratory results Abnormal [facility] No Panel InformationOrdered By: Becca oRgers on 11-25-2020 [facility] No Panel InformationOrdered By: Iris Mcintosh on 11-25-2020 [facility] Protein / Creatinine Ratio, UrineOrdered By: Iris Mcintosh on 11-25-2020 Protein/Creatinine (U) [Ratio] 0.8 High [facility] Protein/Creatinine (U) [Rati o]Ordered By: Iris Mcintosh on 11-25-2020 Creatinine (U) [Mass/Vol] 36.2 mg/dL [facility] Interpretation and review of laboratory results Abnormal [facility] Protein (U) [Mass/Vol] 29.7 mg/dL [facility] T. pallidum IgG Ql (S)Ordere d By: Iris Mcintosh on 11-25-2020 Interpretation and review of laboratory results Normal [facility] T. pallidum Ab Ql (S) Negative Negative [facility] Urate [Mass/Vol]Ordered By: Becca Rogers on 11-25-2020 Interpretation and review of laboratory results Normal [facility] Urate [Mass/Vol]Ordered By: Iris Mcintosh on 11-25-2020 Interpretation and review of laboratory results Normal [facility] Uric AcidOrdered By: Becca carroll on 11-25-2020 Urate [Mass/Vol] 5.9 mg/dL 2.4 - 7.0 mg/dL [facility] Uric AcidOrdered By: Iris Mcintosh on 11-25-2020 Urate [Mass/Vol] 5.9 mg/dL 2.4 - 7.0 mg/dL [facility] Blood type and Indirect anti body screen panel (Bld)Ordered By: Bernarda Crowell on 11-24-2020 ABO and Rh group Nom (Bld) Blood group A Rh(D) positive [facility] Blood group antibody screen Ql Negative [facility] Specimen Expires 11/27/2020 23:59 EST [facility] CBC WITH AUTO DIFFERENTIALOr dered By: Bernarda Crowell on 11-24-2020 Basophils (Bld) [#/Vol] 0.01 10*3/uL [facility] Basophils/100 WBC (Bld) 0.1 % [facility] Eosinophils (Bld) [#/Vol] 0.05 10*3/uL [facility] Eosinophils/100 WBC (Bld) 0.4 % [facility] Erythrocyte distribution width (RBC) [Entitic vol] 14.9 % High 11.6 - 14.8 % [facility] Hematocrit (Bld) [Volume fraction] 31.6 % Low 36.0 - 46.0 % [facility] Hemoglobin (Bld) [Mass/Vol] 10.4 g/dL Low 12.0 - 16.0 g/dL [facility] Immature granulocytes (Bld) [#/Vol] 0.20 10*3/uL [facility] Immature granulocytes/100 WBC (Bld) 1.60 % [facility] Comment on above: The IG parameter is the percentage of metamyelocytes, myelocytes and promyelocytes. An immature granulocyte count (IG) of 1% or more suggests the possibility of infection, an IG count of 3% is very likely related to an infection. Interpretation and review of laboratory results Abnormal [facility] Lymphocytes (Bld) [#/Vol] 1.62 10*3/uL [facility] Lymphocytes/100 WBC (Bld) 12.9 % [facility] MCH (RBC) [Entitic mass] 27.0 pg 26. 0 - 34.0 pg [facility] MCHC (RBC) [Mass/Vol] 32.9 g/dL 31.0 - 37.0 g/dL [facility] MCV (RBC) [Entitic vol] 82.1 fL 80.0 - 100.0 fL [facility] Monocytes (Bld) [#/Vol] 0.67 10*3/uL [facility] Monocytes/100 WBC (Bld) 5.3 % [facility] Neutrophils (Bld) [#/Vol] 10.05 10*3/uL High [facility] Neutrophils/100 WBC (Bld) 79.7 % [facility] Platelet mean volume (Bld) [Entitic vol] 10.5 fL 9.4 - 12.4 fL [facility] Platelets (Bld) [#/Vol] 308 10*3/uL [facility] RBC (Bld) [#/Vol] 3.85 10*6/uL Low [facility] ealth WBC (Bld) [#/Vol] 12.60 10*3/uL High [facility] Rupture of Membranes ( [place] Only)Ordered By: Bernarda Crowell on 11-24-2020 Interpretation and review of laboratory results Abnormal [facility] Rupture of Membranes Positive Abnormal Negative [facility] SURGon 09-01-2017 SURG Name: PUENTES, BRANDT LSource A. Endo Biopsy, Endocervical curettings B. Cervical biopsy Clinical History None given Diagnosis A. Endocervical mucosa without evidence of condyloma or dysplasia. B. Acute and chronic cervicitis. No definite evidence of condyloma or dysplasia. JF;joel Gross Description A. Received in formalin are white and dark brown gelatinous material measuring in aggregate 1.1 x 1.1 x 0.4 cm. ET 1 block. B. The specimen received in formalin is a white and hidalgo fragment measuring 0.4 x 0.3 x 0.2 cm. Totally submitted in one cassette. CS/arj (JSF/arj) Electronically Signed By Antonio Lopez MD , Pathologist (Case signed 09/03/2017) Normal [facility] GYNon 08-07-2017 PHARMACY TECHNICIAN INSTRUCTOR Name: BRANDT PUENTES LSsussy Thin Prep Cervical/Endocervical -Pap Smear Clinical History Specimen Adequacy Satisfactory No transformation zone component identified. Diagnosis Low grade squamous intraepithelial lesion (LSIL). HPV Results HPV 16/18/Other HPV16: Negative HPV18: Negative HPVOTHER: Positive Assay performed using [employer] [id number] system utilizing Real-Time PCR toamplify target HPV DNA. This system specifically identifies HPV16 [id number] while concurrently detecting the other twelve high risk types(31,33,35,39,45, 51,52,56,58,59,66,68) . Completed by on 2017-08-14 Electronically Signed By Juan Luis REED (ASCP) , Screening performed at [facility], [address] [place] [address] (Case Screened 08/12/2017) Darryl Strickland DO Pathologist (Case signed 08/14/2017) The Papanicolaou smear is a screening tool, and like any screen, has an inherent false negative rate. Interpretation of results should be made in the context of patient history and clinical findings. Normal [facility] Human Papillomavirus,High Ri skon 08-07-2017 HPV 16 Negative Normal Negative [facility] Comment on above: Performed By: #### H PV ####Unless otherwise noted, all testing performed by [address] [id number]: [id number] Director: Antonio Lopez M.D. HPV 18 Negative Normal Negative [facility] Comment on above: Performed By: #### H PV ####Unless otherwise noted, all testing performed by [address] [id number]: [id number] Director: Antonio Lopez M.D. HPV, Other Positive Abnormal Negative [facility] Comment on above: Result Comment: Assa y performed using [employer] Ty 4800 system utilizing Real-Time PCR toamplify target HPV DNA. This system specifically identifies HPV16 [id number] while concurrently detecting the other twelve high risk types(31,33,35,39,45,51,52,56,58,59,66,68).Test Performed by [facility] plus [id number] [place] [address] Performed By: #### H PV ####Unless otherwise noted, all testing performed by [address] [id number]: [id number] Director: Antonio Lopez M.D. Vital Signs Date Time Vital Sign Value Performing Clinician Facility 08-18-2024 16:28-0500 Body mass index (BMI) [Ratio] 43.55 kg/m2 Una GARZA Work Phone: [facility] 08-18-2024 16:28-0500 Body weight 101.15 kg Una GARZA Work Phone: [facility] 08-18-2024 16:28-0500 Diastolic blood pressure 78 mm[Hg] Una GARZA Work Phone: [facility] 08-18-2024 16:28-0500 Systolic blood pressure 130 mm[Hg] Una GARZA Work Phone: [facility] 08-01-2024 12:24-0500 Body temperature 97.2 [degF] Nando Parry INDUSTRIAL TECH INSTRUCTOR Work Phone: [facility] 08-01-2024 12:24-0500 Diastolic blood pressure 76 mm[Hg] Nando Parry INDUSTRIAL TECH INSTRUCTOR Work Phone: [facility] 08-01-2024 12:24-0500 Heart rate 90 /min Nando Parry INDUSTRIAL TECH INSTRUCTOR Work Phone: [facility] 08-01-2024 12:24-0500 SaO2% (BldA) [Mass fraction] 97 % Nando Parry INDUSTRIAL TECH INSTRUCTOR Work Phone: [facility] 08-01-2024 12:24-0500 Systolic blood pressure 126 mm[Hg] Nando Parry INDUSTRIAL TECH INSTRUCTOR Work Phone: [facility] 07-21-2024 16:39-0500 Body mass index (BMI) [Ratio] 44.68 kg/m2 Una Sycamore PA Work Phone: [facility] 07-21-2024 16:39-0500 Body weight 103.78 kg Una Sycamore PA Work Phone: [facility] 07-21-2024 16:39-0500 Diastolic blood pressure 74 mm[Hg] Una Dora PA Work Phone: [facility] 07-21-2024 16:39-0500 Systolic blood pressure 116 mm[Hg] Una Dora PA Work Phone: [facility] 05-08-2024 10:01-0500 Body mass index (BMI) [Ratio] 39.06 kg/m2 Ifrah Blanca PA Work Phone: [facility] 05-08-2024 10:01-0500 Body temperature 97.59 [degF] Ifrah Blanca PA Work Phone: [facility] 05-08-2024 10:01-0500 Body weight 90.72 kg Ifrah Blanca PA Work Phone: [facility] 05-08-2024 10:01-0500 Diastolic blood pressure 88 mm[Hg] Ifrah Blanca PA Work Phone: [facility] 05-08-2024 10:01-0500 Heart rate 89 /min Ifrah Hemmer PA Work Phone: [facility] 05-08-2024 10:01-0500 SaO2% (BldA) [Mass fraction] 99 % Ifrah Hemmer PA Work Phone: [facility] 05-08-2024 10:01-0500 Systolic blood pressure 132 mm[Hg] Ifrah Hemmer PA Work Phone: [facility] 11-27-2020 15:37-0400 Body temperature 97.39 [degF] Ob Rolfe Work Phone: [facility] 11-27-2020 15:37-0400 Diastolic blood pressure 86 mm[Hg] Ob Rolfe Work Phone: [facility] 11-27-2020 15:37-0400 Heart rate 74 /min Ob Rolfe Work Phone: [facility] 11-27-2020 15:37-0400 Respiratory rate 16 /min Ob Rolfe Work Phone: [facility] 11-27-2020 15:37-0400 SaO2% (BldA) [Mass fraction] 99 % Ob Rolfe Work Phone: [facility] 11-27-2020 15:37-0400 Systolic blood pressure 138 mm[Hg] Ob Rolfe Work Phone: [facility] 11-24-2020 22:04-0400 Body temperature 99 [degF] Bernarda Crowell MD Work Phone: [facility] 11-24-2020 22:04-0400 Diastolic blood pressure 87 mm[Hg] Bernarda Crowell MD Work Phone: [facility] 11-24-2020 22:04-0400 Heart rate 74 /min Bernarda Crowell MD Work Phone: [facility] 11-24-2020 22:04-0400 Respiratory rate 24 /min Bernarda Crowell MD Work Phone: [facility] 11-24-2020 22:04-0400 SaO2% (BldA) [Mass fraction] 99 % Bernarda Crowell MD Work Phone: [facility] 11-24-2020 22:04-0400 Systolic blood pressure 149 mm[Hg] Bernarda Crowell MD Work Phone: [facility] 11-24-2020 16:20-0400 Body height 154.9 cm Bernarda Crowell MD Work Phone: [facility] 11-24-2020 16:20-0400 Body mass index (BMI) [Ratio] 36.09 kg/m2 Bernarda Crowell MD Work Phone: [facility] 11-24-2020 16:20-0400 Body weight 86.64 kg Bernarda Crowell MD Work Phone: [facility] Comment on above: STATED 10-11-2020 14:07-0400 Body Temperature 98.01 [degF] [facility] 10-11-2020 13:45-0400 BP Diastolic 68 mm[Hg] [facility] 10-11-2020 13:45-0400 BP Systolic 125 mm[Hg] [facility] 10-11-2020 13:45-0400 Pulse (Heart Rate) 90 /min Zenaida Columbus [facility] Encounters Encounter Date Encounter Type Care Provider Facility Start: 11-29-2024 End: 11-29-2024 Bamboo flowsheet Una GARZA Work Phone: [facility] Start: 11-29-2024 End: 11-29-2024 Bamboo flowsheet Una GARZA Work Phone: [facility] Start: 10-20-2024 End: 10-25-2024 Telephone encounter Bozena Zhou NP Work Phone: [facility] Start: 08-18-2024 End: 08-18-2024 Office outpatient visit 15 minutes Una GARZA Work Phone: [facility] Comment on above: Follow-up encounter involving medication Start: 08-18-2024 End: 08-18-2024 ambulatory UNA JOHN Not Available Start: 08-18-2024 End: 08-18-2024 Bamboo flowsheet Una GARZA Work Phone: [facility] Start: 08-18-2024 End: 08-18-2024 Bamboo flowsheet Una John PA Work Phone: [facility] Start: 08-01-2024 End: 08-01-2024 Office outpatient visit 25 minutes Nando Richmondbrook INDUSTRIAL TECH INSTRUCTOR Work Phone: [facility] Comment on above: Influenza A (Primary Dx); Cough, unspecified type Start: 08-01-2024 End: 08-01-2024 ambulatory NANDO RICHMONDBROOK Not Available Start: 07-21-2024 End: 07-21-2024 Office outpatient visit 15 minutes Una GARZA Work Phone: [facility] Comment on above: Encounter for weight management; Wellness examination Start: 07-21-2024 End: 07-21-2024 Patient encounter status Una GARZA Work Phone: [facility] Start: 07-21-2024 End: 07-21-2024 ambulatory UNA JOHN Not Available Start: 07-21-2024 End: 07-21-2024 Bamboo flowsheet Una GARZA Work Phone: [facility] Start: 07-21-2024 End: 07-21-2024 Bamboo flowsheet Una John PA Work Phone: [facility] Start: 05-08-2024 End: 05-08-2024 Office outpatient visit 15 minutes Ifrah Blanca PA Work Phone: [facility] Comment on above: Acute bronchitis, un specified organism (Primary Dx); Bilateral acute otitis media Start: 05-08-2024 End: 05-08-2024 ambulatory IFRAH BLANCA Not Available Start: 10-15-2023 End: 10-15-2023 ambulatory UNA JOHN Not Available Start: 09-15-2023 End: 09-15-2023 ambulatory UNA JOHN Not Available Start: 04-16-2022 End: 04-17-[address] SHAY VAUGHN Facility:[facility] Start: 02-19-2022 End: 02-20-2022 ambulatory ALICE MCCALLUM [facility] Start: 02-02-[address] SHAY VAUGHN Facility :[facility] Start: 01-23-2022 End: 01-23-[address] SHAY VAUGHN Facility:[facility] Start: 01-15-2021 End: 01-16-2021 ambulatory JOSE CRUZ [facility] Start: 11-25-2020 End: 11-27-2020 Evaluation and management of inpatient Ob [facility] Rolfe Work Phone: [facility] Start: 11-24-2020 End: 11-25-2020 [facility]: 11-24-2020 End: 11-24-2020 Subsequent hospital visit by physician Bernarda Crowell MD Work Phone: [facility] Start: 10-16-2020 End: 10-20-2020 ambulatory [facility] Start: 10-16-2020 End: 10-16-2020 ambulatory Mariah Sinha [facility] Start: 10-16-2020 End: 10-16-2020 Patient encounter procedure Fabiana Pacheco CNP Work Phone: [facility] Comment on above: Left hip pain; Trochanteric bursitis of left hip Start: 10-11-2020 End: 10-11-2020 ambulatory JOSE CRUZ [facility] Start: 10-11-2020 End: 10-11-2020 Subsequent hospital visit by physician Zenaida Liz Work Phone: [facility] Start: 10-09-2020 End: 10-13-2020 ambulatory LOGAN RADF[facility] Start: 10-09-2020 End: 10-09-2020 Patient encounter procedure Fabiana Pacheco Work Phone: [facility] Comment on above: Left hip pain; Trochanteric bursitis of left hip Start: 10-04-2020 End: 10-08-2020 [facility] Start: 10-04-2020 End: 10-04-2020 Patient encounter procedure Fabiana Pacheco Work Phone: [facility] Comment on above: Left hip pain; Trochanteric bursitis of left hip Start: 10-02-2020 End: 10-06-2020 ambulatory [facility] Start: 09-28-2020 End: 10-02-2020 ambulatory [facility] Start: 09-28-2020 End: 09-28-2020 Patient encounter procedure Fabiana Pacheco Work Phone: [facility] Comment on above: Left hip pain; Trochanteric bursitis of left hip Start: 09-20-2020 End: 09-24-2020 [facility] Start: 09-20-2020 End: 09-20-2020 Patient encounter procedure Fabiana Pacheco Work Phone: [facility] Comment on above: Left hip pain; Trochanteric bursitis of left hip Start: 09-18-2020 End: 09-22-2020 [facility] Start: 09-18-2020 End: 09-18-2020 Patient encounter procedure Fabiana Pacheco Work Phone: [facility] Comment on above: Left hip pain; Trochanteric bursitis of left hip Start: 09-11-2020 End: 09-15-2020 [facility] Start: 09-11-2020 End: 09-11-2020 Patient encounter procedure Fabiana Pacheco Work Phone: [facility] Comment on above: Left hip pain; Trochanteric bursitis of left hip Start: 09-05-2020 End: 09-05-2020 Orders Only Fabiana Pacheco Work Phone: [facility] Comment on above: Left hip pain (Prima ry Dx); Trochanteric bursitis of left hip Start: 07-17-2020 End: 07-17-2020 Office outpatient new 20 minutes Bernarda Crowell Work Phone: [facility] Comment on above: Trochanteric bursiti s of left hip (Primary Dx); Left hip pain Start: 09-01-2017 Ambulatory Bernarda Nguyen [facility] Fac[facility]:[place] Start: 09-01-2017 End: 09-01-2017 Ambulatory Bernarda Crowell Work Phone: [facility] Start: 08-07-2017 Ambulatory Bernardavenkat Crowell Facili ty:[place] Start: 08-07-2017 End: 08-07-2017 Ambulatory Bernarda Crowell Work Phone: [facility] Procedures Date Procedure Procedure Detail Performing Clinician Start: 08-01-2024 Infectious agent dna /rna influenza 1st 2 types Aleksander Dahl DO Work Phone: Start: 04-02-2023 Microscopic observat ion [Identifier] in Cervix by Cyto stain Una John PA Work Phone: Start: 01-23-2022 Microscopic observat ion [Identifier] in Cervix by Cyto stain Ifrah GARZA Work Phone: Start: 11-27-2020 Comprehensive metabo lic panel Soo Carroll MD Work Phone: Start: 11-26-2020 Comprehensive metabo lic panel Steve Mendoza DO Work Phone: Start: 11-25-2020 Comprehensive metabo lic panel Becca Rogers MD Work Phone: Start: 11-25-2020 Blood typing serologic abo Iris Mcintosh DO Work Phone: Start: 11-25-2020 Comprehensive metabo lic panel Iris Mcintosh DO Work Phone: Start: 11-24-2020 Blood count complete auto&auto difrntl wbc Bernarda Crowell MD Work Phone: Start: 11-24-2020 Blood typing serologic abo Bernarda Crowell MD Work Phone: Start: 11-24-2020 Eval c/v amniotic fl uid protein qual ea specimen Bernarda Crowell MD Work Phone: Start: 06-12-2020 Microscopic observat ion [Identifier] in Cervix by Cyto stain Fabiana Pacheco Plan of Treatment Date Care Activity Detail Author Start: 01-23-2027 Screening for malign ant neoplasm of cervix [facility] Start: 04-02-2026 Screening for malign ant neoplasm of cervix [facility] Start: 01-12-2026 Screening for malign ant neoplasm of cervix HPV/Cotest [facility] Start: 02-28-2025 Influenza vaccination Influenz a Vaccine (Season Ended) [facility] Start: 11-29-2024 End: 11-29-2024 Patient encounter procedure 11/29/2024 3:00 PM EDT Office Visit [facility] [address] [place] [id number] Una John, PA [address] [place] [address] [facility] Start: 10-20-2024 End: 10-20-2024 Patient encounter procedure 10/20/2024 4:00 PM EDT Office Visit [facility] [address] [phone] Una John, PA [address] [place], [place] [id number] [facility] Start: 10-12-2024 End: 10-12-2024 Patient encounter procedure 10/12/2024 2:00 PM EDT Office Visit [facility] [address] [place] [address] Shay Vaughn DO [address] [place] [address] [facility] Start: 08-18-2024 End: 08-18-2024 Patient encounter procedure [facility] Comment on above: Arrived Start: 07-21-2024 End: 07-21-2024 Patient encounter procedure 07/21/2024 4:00 PM EST Office Visit [facility] [address] [place] [phone] Una John PA [address] [place] [address] Arrived [facility] Comment on above: Arrived Start: 07-21-2024 End: 07-21-2025 Lipid 1996 panel - Serum or Plasma Lipid panel Lab Routine Wellness examination Expected: 07/21/2024 (Approximate), Expires: 07/21/2025 [facility] Comment on above: Expected: 07/21/2024 (Approximate), Expires: 07/21/2025 Start: 02-29-2024 Influenza vaccination Influenza Vacc ine (#1) [facility] Start: 06-12-2023 Screening for malign ant neoplasm of cervix Pap Smear [facility] Start: 02-28-2021 Influenza vaccination Sequenti al Influenza Vaccine (Season Ended) [facility] Start: 10-25-2020 End: 10-25-2020 Treatment 10/25/2020 Treatment Rehabilitation Fabiana Pacheco, AUTO SERVICE MECHANIC [address] [address] [phone] Marcello Baltazar, PT [facility] Start: 10-23-2020 End: 10-23-2020 Treatment 10/23/2020 Treatment Rehabilitation Fabiana Pacheco, AUTO SERVICE MECHANIC [address] [id number] Mariah Sinha [facility] Start: 10-18-2020 End: 10-18-2020 Treatment [facility] Start: 10-16-2020 End: 10-16-2020 Treatment [facility] Start: 10-11-2020 End: 10-11-2020 Anesthesia Event 10/11/2020 Anesthesia Event Rehabilitation Pamela Cardenas MD [address] [place] [address] [phone] [facility] Start: 10-11-2020 End: 10-11-2020 Treatment 10/11/2020 Treatment Rehabilitation Fabiana Pacheco, AUTO SERVICE MECHANIC [address] [facility] [address] [place] [address] [phone] Marcello Baltazar, [facility] Start: 10-09-2020 End: 10-09-2020 Treatment 10/09/2020 Treatment Rehabilitation Fabiana Pacheco, AUTO SERVICE MECHANIC 24 [facility] [address] [place] [address] [phone] [facility] Start: 10-04-2020 End: 10-04-2020 Treatment [facility] Start: 10-02-2020 End: 10-02-2020 Treatment 10/02/2020 Treatment Rehabilitation Fabiana Pacheco, AUTO SERVICE MECHANIC [address] [facility] [address] [place] [address] [phone] [facility] Start: 09-28-2020 End: 09-28-2020 Treatment 09/28/2020 Treatment Rehabilitation Fabiana Pacheco, AUTO SERVICE MECHANIC 24 [facility] [address] [place] [address] [phone] Marcello Baltazar, [facility] Start: 09-27-2020 End: 09-27-2020 Treatment 09/27/2020 Treatment Rehabilitation Fabiana Pacheco, AUTO SERVICE MECHANIC 24 [facility] [address] [place] [address] [phone] [facility] Start: 09-25-2020 End: 09-25-2020 Treatment 09/25/2020 Treatment Rehabilitation Junior, Fabiana Daniels, AUTO SERVICE MECHANIC [address] [facility] [address] [place] [address] [phone] [facility] Start: 09-20-2020 End: 09-20-2020 Treatment 09/20/2020 Treatment Rehabilitation Junior, Fabiana Daniels, AUTO SERVICE MECHANIC 24 [facility] [address] [place] [address] [phone] Marcello Baltazar, [facility] Start: 09-18-2020 End: 09-18-2020 Treatment 09/18/2020 Treatment Rehabilitation Junior, Fabiana Daniels, AUTO SERVICE MECHANIC 24 [facility] [address] [place] [address] [phone] [facility] Start: 02-29-2020 Influenza vaccination Sequenti al Influenza Vaccine (#1) [facility] Start: 02-29-2020 Influenza vaccinatio n given Sequential Influenza Vaccine (#1) [facility] Start: 2010 Hepatitis C antibody , confirmatory test Hepatitis C Screening [facility] Start: 2010 Hepatitis C screening Hepatitis C Sc reening [facility] Start: 2008 COVID-19 Vaccine (1 of 2) COVID-19 Vaccine (1 of 2) [facility] Start: 2008 COVID-19 Vaccine (1) COVID-19 Vaccin e (1) [facility] Start: 2004 Adolescent depressio n screening assessment Depression Screening (PHQ9) [facility] Start: 2004 COVID-19 Vaccine (1) COVID-19 Vaccin e (1) [facility] Start: 2004 Depression screening using PHQ-9 (Patient Health Questionnaire 9) score Depression Screening (PHQ9) [facility] Start: 1995 History and physical examination, annual for health maintenance Wellness Visit [facility] Start: 1992 Tetanus vaccination Tetanus: Every 1 0yrs [facility] CBC W Auto Different ial panel - Blood CBC and differential Lab Routine Wellness examination Ordered: 07/21/2024 [facility] Comment on above: Ordered: 07/21/2024 Comprehensive metabo lic 2000 panel - Serum or Plasma Comprehensive metabolic panel Lab Routine Wellness examination Ordered: 07/21/2024 [facility] Comment on above: Ordered: 07/21/2024 Hemoglobin A1c/Hemoglobin.total in Blood Hemoglobin A1c Lab Routine Wellness examination Ordered: 07/21/2024 [facility] Comment on above: Ordered: 07/21/2024 End: 11-25-2020 Procedure on tissue specimen Tissue Exam Pathology and Cytology Routine Once for 1 Occurrences starting 11/25/2020 until 11/25/2020 [facility] Comment on above: Once for 1 Occurrenc es starting 11/25/2020 until 11/25/2020 Thyrotropin [Units/volume] in Serum or Plasma TSH Lab Routine Wellness examination Ordered: 07/21/2024 [facility] Work Phone: Comment on above: Ordered: 07/21/2024 Immunizations Immunization Date Immunization Notes Care Provider Fa [facility] 11-25-2020 varicella zoster immune globulin Ob Rolfe Work Phone: [facility] Work Phone: 11-25-2020 diphtheria, tetanus toxoids and acellular pertussis vaccine, unspecified formulation Ob Rolfe Work Phone: [facility] 11-25-2020 measles, mumps and rubella virus vaccine Ob Rolfe Work Phone: [facility] Payers Date Payer Category Payer [facility] BCBS [id number] 2017 Unknown [employer] BCBS OUT OF STATE [facility] [id number] 2017-Present [id number] 1992 Unknown [id number] [id number] 3 1992 Unknown [id number] 2.16.840.1.100311.3.579.2.90 3 1992 Unknown [id number] 2.16.840.1.592877.3.579.2.90 3 1992 Unknown [id number] 2.16.840.1.566845.3.579.2.90 3 1992 Unknown [id number] 2.16.840.1.170430.3.579.2.90 3 1992 Unknown [id number] 2.16.840.1.700393.3.579.2.90 3 1992 Unknown [id number] 2.16.840.1.728425.3.579.2.90 3 1992 Unknown [id number] 2.16.840.1.757514.3.579.2.90 3 1992 Unknown [id number] 2.16.840.1.725838.3.579.2.90 3 1992 Unknown [id number] 2.16.840.1.655585.3.579.2.90 3 1992 Unknown [id number] 2.16.840.1.862575.3.579.2.90 3 1992 Unknown [id number] 2.16.840.1.221545.3.579.2.59 3 1992 Unknown [id number] 2.16.840.1.108865.3.579.2.59 3 1992 Unknown [id number] 2.16.840.1.789150.3.579.2.59 3 1992 Unknown [id number] 2.16.840.1.223188.3.579.2.59 3 1992 Unknown [id number] 2.16.840.1.314848.3.579.2.90 0 1992 Unknown [id number] 2.16.840.1.598596.3.579.2.12 59 1992 Unknown [id number] 2.16.840.1.004440.3.579.2.12 59 1992 Unknown [id number] 2.16.840.1.504097.3.579.2.12 59 1992 Unknown [id number] 2.16.840.1.676305.3.579.2.12 59 1992 Unknown [id number] 2.16.840.1.722438.3.579.2.12 59 1992 Unknown [id number] 2.16.840.1.897996.3.579.2.12 59 1959 Self-pay 1959 Unknown [id number] 2.16.840.1.377216.3.249.13 Unknown xxxxxxxxxxxxxxx 2.16.840.1.691672.3.249.13 Social History Date Type Detail Facility Start: 09-03-2017 End: 11-24-2020 Tobacco smoking status [facility] Unknown if ever smoked [facility] Work Phone: Start: 1992 Sex Assigned At Not on file [facility] Work Phone: Exposure to SARS-CoV -2 (event) Not sure [facility] Start: 10-11-2020 End: 11-25-2020 Alcohol intake Ex-drinker (finding) [facility] Start: 03-27-2020 [facility] Start: 11-25-2020 End: 03-26-2023 Tobacco smoking status NEIS Never smoker [facility] Start: 11-25-2020 Tobacco use and exposure Never used [facility] Start: 05-08-2024 End: 02-19-2025 Alcoholic beverage intake Current drinker of alcohol (finding) [facility] Start: 2023 End: 05-08-2024 [facility] of Social function [facility] Start: 2023 End: 05-08-2024 Alcohol Use Disorder Identification Test - Consumption [AUDIT-C] [facility] How often to you hav e a drink containing alcohol? Monthly or less [facility] How many standard dr inks containing alcohol do you have on a typical day? 1 or 2 [facility] How often do you hav e 6 or more drinks on 1 occasion? Never [facility] Start: 03-26-2023 Alcohol Comment 1 or 2 drinks on a typical day/monthly or less [facility] Clinical Notes 10-16-2020 to 10-20-2024 Telephone Encounter - Kiana Patel LPN - 10/20/2024 5:31 PM EDTTelephone Encounter - Kiana Patel LPN - 10/20/2024 5:31 PM GREG Segura - 08/18/2024 4:00 PM ESTInstructionsAttachments Note Date & Type Note Facility 10-20-2024 Telephone encount er Note 5:20pm Bozena Zhou NP called patient for telehealth appointment and LMOM that labs need to be reviewed for continuation of medication. Documented on behalf of Bozena Zhou NP [facility] 10-20-2024 Miscellaneous Notes Formattin g of this note might be different from the original. 5:20pm Bozena Zhou NP called patient for telehealth appointment and LMOM that labs need to be reviewed for continuation of medication. Documented on behalf of Bozena Zhou NP documented in this encounter [facility] 08-18-2024 History of Presen t illness Narrative Reason for Appointment: Patient ID: Brandt Peres is a 34 y.o. female who presents for Follow-up (Pt present today for a Ozempic follow up visit.) Patient presents today for Medication Follow Up appointment. MEDICATIONS Current Outpatient Medications Medication Instructions Ozempic [...] due to excess calories 01/28/2024 Preeclampsia 11/29/2020 Resolved Ambulatory Problems Diagnosis Date Noted No [...] Date HIP SURGERY Left 1997 ball socket [place] LAP,CHOLECYSTECTOMY 05/29/2021 REVIEW OF SYSTEMS Review of Systems: Review of Systems Constitutional: Negative. HENT: Negative. Eyes: Negative. Respiratory: Negative. Cardiovascular: Negative. Gastrointestinal: Negative. Genitourinary: Negative. Musculoskeletal: Negative. Skin: Negative. Neurological: Negative. All other systems reviewed and are negative. Hematological: Negative. Endocrine: Negative. Allergic/Immunologic: Negative. OBJECTIVE Objective: Physical Exam Constitutional: Appearance: Normal appearance. She is normal weight. HENT: Head: Normocephalic. Cardiovascular: Rate and Rhythm: Normal rate. Pulses: Normal pulses. Pulmonary: Effort: Pulmonary effort is normal. Breath sounds: Normal breath sounds. Abdominal: Palpations: Abdomen is soft. Musculoskeletal: General: Normal range of motion. Neurological: General: No focal deficit present. Mental Status: She is alert and oriented to person, place, and time. Psychiatric: Mood and Affect: Mood normal. Behavior: Behavior normal. Thought Content: Thought content normal. Judgment: Judgment normal. Vitals and nursing note reviewed. Vitals: Estimated body mass index is 43.55 kg/m as calculated from the following: Height as of 10/22/22: 5'. Weight as of this encounter: 223 lb. BP: 130/78 No LMP recorded. ASSESSMENT & PLAN ICD-10-CM 1. Follow-up encounter involving medication Z79.899 semaglutide (Ozempic, 1 MG/DOSE,) 2 MG/1.5ML solution pen-injector Patient doing well with ozempic and labs reviewed, patient will be increased to 0.5mg per injection for the next month. She is due for labs in 3months. Patient aware and will follow up in 3 months for labs and refill Documented by GREG Dodson on behalf of: GREG Dodson documented in this encounter [facility] 08-01-2024 History of Presen t illness Narrative [address], [address] [facility], [address] P: [phone] F: [phone] HPI Historian of HPI: patient Brandt Peres is a 34 y.o. female who presents today to the Urgent Care with the following complaints and denials which have been present for 3 day(s) C/O Denies Symptom Comments [x] [] Runny Nose [x] [] Difficulty Swallowing [x] [] Sore Throat [] [x] Cough [x] [] Ear Pain bilateral [x] [] Fever [] [x] Chills [x] [] Nasal Congestion [] [x] Myalgia [] [x] Sinus Pain [] [x] Sinus Pressure Additional Comments: pt has taken advil OTC medication without relief Pt would like both ears checked and is agreeable to flu testing. Declined strep and covid ROS A complete system ROS was performed and negative aside from the pertinent positives noted in the HPI and PE. PHYSICAL EXAM Examination General Examination: General Examination: alert, oriented, normal affect, well appearing, in no acute distress, well developed, well nourished Head: normocephalic, atraumatic Eyes: sclera non-icteric Ears: tympanic membrane intact, clear, auditory canal non inflamed Nose: congested with clear drainage. Oral Cavity: mucosa moist, no lesions Throat: PND noted, uvula midline Neck/Thyroid: FROM Lymph Nodes: no cervical adenopathy Heart: no murmurs, regular rate and rhythm, S1, S2 normal Lungs: clear to auscultation bilaterally Extremities: no edema, no cyanosis Neurologic: alert and oriented Psych: alert, oriented, cognitive function intact, cooperative with exam TREATMENT PLAN 1. Cough, unspecified type Influenza A positive. Influenza B negative. - INFLUENZA DNA PROBE - yrvyruoqlrbirjh-xgjmzxfbtfpciye-UT 30-2-10 MG/5ML syrup; Take 5-10 mL by mouth 4 (four) times a day as needed for cough or congestion for up to 7 days Dispense: 118 mL; Refill: 0 2. Influenza A (Primary) Diagnosis and treatment discussed with patient. Immediate eval if new, worsening sx otherwise f/u with PCP if sx not resolved in 7 days, sooner if not improving over next 3-4 days. To ED for trouble swallowing secretions, shortness of breath, or other red flag symptoms. Advised Pt on supportive therapies, including using a vaporizer/humidifer/steam from hot showers, lots of fluids as tolerated, rest, avoidance of second-hand smoke, frequent hand-washing w/ soap and water, and OTC acetaminophen or ibuprofen as directed prn for pain control - ohjgewtzcjigfys-ywboxvhjykqklcv-EU 30-2-10 MG/5ML syrup; Take 5-10 mL by mouth 4 (four) times a day as needed for cough or congestion for up to 7 days Dispense: 118 mL; Refill: 0 documented in this encounter [facility] 07-21-2024 History of Presen t illness Narrative Reason for Appointment: Patient ID: Brandt Peres is a 34 y.o. female who presents for Weight Management Patient presents today for Weight Management Consult. MEDICATIONS Current Outpatient Medications Medication Instructions semaglutide (Ozempic) 2 MG/1.5ML solution pen-injector FIRST MONTH inject 0.25 mg under the skin once weekly; then SECOND MONTH inject 0.5 mg under the skin 1 (one) time per week for 4 doses. ALLERGIES No Known Allergies PROBLEMS Active Ambulatory Problems Diagnosis Date Noted Non morbid obesity due to excess calories 01/28/2024 Preeclampsia 11/29/2020 Resolved Ambulatory Problems Diagnosis Date Noted No [...] Date HIP SURGERY Left 1997 ball socket [place] LAP,CHOLECYSTECTOMY 05/29/2021 REVIEW OF SYSTEMS Review of Systems: Review of Systems Constitutional: Negative. HENT: Negative. Eyes: Negative. Respiratory: Negative. Cardiovascular: Negative. Gastrointestinal: Negative. Genitourinary: Negative. Musculoskeletal: Negative. Skin: Negative. Neurological: Negative. All other systems reviewed and are negative. Hematological: Negative. Endocrine: Negative. Allergic/Immunologic: Negative. OBJECTIVE Objective: Physical Exam Constitutional: Appearance: Normal appearance. She is normal weight. HENT: Head: Normocephalic. Cardiovascular: Rate and Rhythm: Normal rate. Pulses: Normal pulses. Pulmonary: Effort: Pulmonary effort is normal. Breath sounds: Normal breath sounds. Abdominal: Palpations: Abdomen is soft. Musculoskeletal: General: Normal range of motion. Neurological: General: No focal deficit present. Mental Status: She is alert and oriented to person, place, and time. Psychiatric: Mood and Affect: Mood normal. Behavior: Behavior normal. Thought Content: Thought content normal. Judgment: Judgment normal. Vitals and nursing note reviewed. Vitals: Estimated body mass index is 44.68 kg/m as calculated from the following: Height as of 10/22/22: 5'. Weight as of this encounter: 228 lb 12.8 oz. BP: 116/74 No LMP recorded. ASSESSMENT & PLAN ICD-10-CM 1. Encounter for weight management Z76.89 semaglutide (Ozempic) 2 MG/1.5ML solution pen-injector 2. Wellness examination Z00.00 TSH Lipid panel Comprehensive metabolic panel Hemoglobin A1c CBC and differential Lipid panel Patient presents today for weight loss consultation. Patient desires to try ozempic and states her insurance is covering for her place of employment. Risks and benefits were discussed. Patient given wellness labs to be drawn and will follow up in office in once month for refill. Patient verbalized understanding and agrees with plan of care Documented by GREG Dodson on behalf of: GREG Dodson documented in this encounter [facility] 05-08-2024 History of Presen t illness Narrative Images from the original note were not included. HPI: Historian of HPI: patient Brandt Peres is a 33 y.o. female who presents today to the Urgent Care with the following complaints and denials which have been present for 7 day(s) Pt states that it started out with a fever, chest congestion and cough. Pt denies any N/V/D at this time C/O Denies Symptom Comments [x] [] Runny Nose [] [x] Difficulty Swallowing [] [x] Sore Throat [x] [] Cough [] [x] Ear Pain [] [x] Fever [] [x] Chills [] [x] Nasal Congestion [] [x] Myalgia [] [x] Sinus Pain [x] [] Chest Pressure Additional Comments: pt has taken Cold and flu OTC medication without relief Pt denies any testing at this time, wants to see provider before any testing Current Outpatient Medications on File Prior to Visit Medication Sig Dispense Refill metFORMIN XR (Glucophage-XR) 500 MG 24 hr tablet Take 1 tablet (500 mg) by mouth in the evening. Take with meals. Do not crush, chew, or split. (Patient not taking: Reported on 05/08/2024) 30 tablet 11 nabumetone (Relafen) 750 MG tablet 1 (one) time each day at the same time (Patient not taking: Reported on 05/08/2024) No current facility-administered medications on file prior to visit. No Known Allergies Social History Tobacco Use Smoking status: Never Substance Use Topics Alcohol use: Yes Comment: 1 or 2 drinks on a typical day/monthly or less Drug use: Never Family History Problem Relation Name Age of Onset Other (Bile Duct Cancer) Mother No Known Problems Sister No Known Problems Brother 3 brothers, healthy Heart disease Maternal Grandfather Heart disease Mother's Brother Heart attack Mother's Brother 32 No Known Problems Daughter Breast cancer Maternal Great-Grandmother Colon cancer Neg Hx Ovarian cancer Neg Hx Past Medical History: Diagnosis Date Body mass index (BMI) 39.0-39.9, adult Family history of cancer History of medical problems pre-eclampsia with hypertension Past Surgical History: Procedure Laterality Date HIP SURGERY Left 1997 ball socket [place] LAP,CHOLECYSTECTOMY 05/29/2021 Visit Vitals BP 132/88 (BP Location: Left arm, Patient Position: Sitting, BP Cuff Size: Large adult) Pulse 89 Temp 97.6 F (Temporal) Wt 200 lb SpO2 99% BMI 39.06 kg/m OB Status Having periods Smoking Status Never BSA 1.96 m ROS: A complete system ROS was performed and negative aside from the pertinent positives noted in the HPI and PE. Physical Exam Constitutional: General: She is not in acute distress. Appearance: She is well-developed. She is obese. She is ill-appearing. HENT: Head: Normocephalic and atraumatic. Right Ear: Ear canal normal. Tympanic membrane is erythematous (Moderate). Left Ear: Ear canal normal. Tympanic membrane is erythematous (Marked). Nose: Congestion present. Mouth/Throat: Mouth: Mucous membranes are moist. Pharynx: Posterior oropharyngeal erythema present. Eyes: General: No scleral icterus. Conjunctiva/sclera: Conjunctivae normal. Cardiovascular: Rate and Rhythm: Normal rate and regular rhythm. Heart sounds: Normal heart sounds. No murmur heard. Pulmonary: Effort: Pulmonary effort is normal. No respiratory distress. Breath sounds: Decreased air movement present. No wheezing, rhonchi or rales. Comments: Unable to take a deep breath without coughing. Frequent dry cough Lymphadenopathy: Cervical: No cervical adenopathy. Skin: General: Skin is warm and dry. Neurological: General: No focal deficit present. Mental Status: She is alert and oriented to person, place, and time. Psychiatric: Mood and Affect: Mood normal. Behavior: Behavior normal. Assessment/Plan Diagnoses and all orders for this visit: Acute bronchitis, unspecified organism - cefdinir (Omnicef) 300 MG capsule; Take 1 capsule (300 mg) by mouth in the morning and 1 capsule (300 mg) before bedtime. Do all this for 10 days. - benzonatate (Tessalon) 200 MG capsule; Take 1 capsule (200 mg) by mouth 3 (three) times a day as needed for cough for up to 7 days Do not crush or chew. - predniSONE (Deltasone) 10 MG tablet; Take 1 tablet (10 mg) by mouth 3 (three) times a day for 3 days, THEN 1 tablet (10 mg) 2 (two) times a day for 3 days, THEN 1 tablet (10 mg) Daily for 3 days. Start the above medications as directed. Advised of potential side effects of the steroid. Patient is to take the steroid with food. Can take Tessalon Perles prn for cough. Increase water intake, get plenty of rest. Can take Tylenol prn for any discomfort or fever. No other anti-inflammatories while on steroid. Cough into elbow. Wash hands often. Advised patient that cough can linger with bronchitis. Follow up with PCP if no improvement in one week. Bilateral acute otitis media Cefdinir as prescribed. Ifrah MORA, PARAG documented in this encounter [facility] 11-27-2020 Miscellaneous Notes DC AVS reviewed and given to pt at bedside. Home care instructions reviewed. Medication prescriptions electronically sent to pt pharmacy. Instructed to follow up with OB in 1 week for BP check and in 6 weeks per MD order for routine follow up. Pt is unable to schedule appointment prior to DC due to it being a holiday. Pt states she has a BP cuff at home. Education reviewed regarding BP parameters and s/s of elevated BPs. Handout given to patient regarding when to call office vs when to go to ED. All questions answered and pt verbalizes understanding. All personal belongings returned. Pt escorted off unit via wheelchair by volunteer services with in mother's lap. This note was copied from a baby's chart. Brandt states that baby has been pretty sleepy and she has mostly been feeding formula. Explained that early babies are often not developmentally ready to fully breastfeed until they are a little older and stronger, so mothers often have to pump and feed baby from a bottle for a little while, until baby is able to fully breastfeed. Explained the importance of pumping each time baby is fed from a bottle, for both helping her milk to come in and establishing a healthy supply. Initiated breast pumping, and reviewed Symphony pump operation and use and care of pump parts. Gave mom the plan of: -Low ross attempts at the breast when baby cues. -If baby does not latch, or active sucking with swallowing resulting in satiety does not occur, mom is to pump/hand express and feed EBM with formula as needed, at least 8-12x/24hrs. -Baby is not to go longer than 3hrs between feedings. -Encouraged lots of skin to skin -Keep a diaper diary -Discussed tummy size and appropriate volume for feeds based on baby's age. -Reviewed section in A Guide To Caring For Yourself and Your Baby and the Temporary Breastpumping handout. -Mom states that she has a pump to use at home. -Reminded mom to remove all disposable pump parts from pump to use at home -Encouraged mom to follow-up at [facility] and baby's primary care provider within 2-3 days, or sooner if needed -Mother has card with helpline number and list of outpatient resources. Spoke to bedside RN, she will check with Brandt and then let us know what her needs are. Associated Problem(s): Status post vacuum-assisted vaginal delivery 1) Maternal Well Being: Doing Well. Obstetric Complications: COVID+ - Asymptomatic PTD at 36w5d Preeclampsia AST/ALT 128/116 > 124/150 > 174/143 > AM CMP pending P:Cr 0.8 Has not received mag, low threshold if severe features develop VAVD complicated by 4th degree - s/p Ancef 2g in L&D, colace BID and Miralax Vital Signs: BP has been mid mild range since delivery Pre-decliery Hgb: 10.9 > EBL 301cc > 8.8 2) Well Being: Viable Female 3) Post control: undecided 4) Disposition: Routine care follow-up with Dr. Crowell One week BP check Vaginal Delivery Note Diagnosis: Principal Problem: labor in third trimester without delivery Mother's Information Delivery Blood Loss 11/24/20 1300 - 11/25/20 1532 None Dilipdinger, Baby Girl Brandt [[id number]] Delivery Anesthesia Method: Epidural Operative Delivery Vacuum extractor attempted?: Yes Time help called: 11/25/2020 1423 Additional provider arrived: 11/25/2020 1423 Additional staff arrived: 11/25/2020 1424 Verbal consent obtained per provider: Yes Indications: Maternal Fatigue Vacuum type: Kiwi Omni Cup (mushroom) First attempt time vacuum applied: 1423 EDT First attempt pressure on: 2:25 PM EDT First attempt pressure off: 2:25 PM EDT First attempt time vacuum removed: 1425 EDT Number of pop offs: 0 Number of pulls: 1 Vacuum applied by: DR BALLESTEROS Failed?: No Shoulder Dystocia Shoulder dystocia present: No [place] Presentation Presentation: Vertex [place] Information date/time: 11/25/20 1425 Gender: Female Delivery type: Vaginal, Spontaneous Delivery location: OB Unit Provider Present: Routine Initial disposition: Routine NB Care ?: No Details: Delivery Providers Delivering clinician: Emily Ballesteros DO Other personnel: Provider Role Brittaney Alvarado MD Covering Attending Steve Mendoza DO Resident [employer] Margaret Tran, tin roller hot mill Nurse Ruthy Orourke, RN Registered Nurse Binta Abdalla, tin roller hot mill Assist Nurse Practitioner Cord Vessels: 3 vessels Delayed cord clamping?: No Cord clamped date/time: 11/25/2020 1426 Cord blood obtained?: No Cord segment obtained?: Yes Gases sent?: Yes Stem cell collection (by Provider)?: No Placenta Date/time: 11/25/2020 1435 Removal: Spontaneous Appearance: Intact Disposition: Refrigerator Apgars Living status: Living Scoring Ross: 0 1 2 Skin color Blue or pale Acrocyanotic Completely pink Heart rate Absent <100 bpm >100 bpm Reflex irritability No response Grimace Cry or active withdrawal Muscle tone Limp Some flexion Active motion Respiratory effort Absent Weak cry; hypoventilation Good, crying Skin color: Heart rate: Reflex irritability: Muscle tone: Respiratory effort: Total: 1 Minute: 0 2 2 2 2 8 5 Minute: 1 2 2 2 2 9 10 Minute: 15 Minute: 20 Minute: Apgars assigned by: DERICK GENTILE [place] Measurements Weight: 5 lb 14.9 oz (2690 g) Length: 18.5 Head Circumference: 13.25 Lacerations Perineal lacerations: 4th Repaired: Yes Sponge Initial Count: 10 Needle Initial Count: 1 Counted By: EMMANUEL RN Verified By: Delemr TRAN RN Sponge Final Count: 10 Needle Final Count: 2 Counted By: Laura OROURKE RN Verified By: Delmer TRAN RN Other Procedures No data filed Associated attestation - Brittaney Alvarado MD - 11/25/2020 4:03 PM EDT Delivery attended; and supervised.documented in this encounter [facility] 11-27-2020 History of Presen t illness Narrative OB Vaginal Delivery Progress Note Patient Name: Brandt Peres : 1990 Admit Date: 11/25/2020 MR #: [id number] ASSESSMENT AND PLAN: Brandt Peres is a 30 y.o. PPD#2 s/p vacuum-assisted delivery. Status post vacuum-assisted vaginal delivery Assessment & Plan 1) Maternal Well Being: Doing Well. Obstetric Complications: COVID+ - Asymptomatic PTD at 36w5d Preeclampsia AST/ALT 128/116 > 124/150 > 174/143 > AM CMP pending P:Cr 0.8 Has not received mag, low threshold if severe features develop VAVD complicated by 4th degree - s/p Ancef 2g in L&D, colace BID and Miralax Vital Signs: BP has been mid mild range since delivery Pre-decliery Hgb: 10.9 > EBL 301cc > 8.8 2) Well Being: Viable Female 3) Post control: undecided 4) Disposition: Routine care follow-up with Dr. Crowell One week BP check SUBJECTIVE: The patient did well overnight. There were no acute issues. Her pain is well controlled. She is tolerating a regular diet without nausea or vomiting. She has ambulated out of bed. Voiding without difficulty. She denies lightheadedness, dizziness, headache, vision changes, chest pain, shortness of breath, RUQ pain, and calf pain. OBJECTIVE: Vitals Temp: [97.9 F (36.6 C)] 97.9 F (36.6 C) Heart Rate: [68-82] 68 Resp: [16] 16 BP: (136-139)/(86-89) 139/86 No intake/output data recorded. Physical Exam General: No acute distress, resting comfortably in bed CV: HDS, no peripheral edema Pulm: Non-labored breaths Abd: Soft, appropriately tender to palpation, non-distended Uterus: Fundus firm @ U-1 Ext: No evidence of DVT seen on physical exam., No cords or calf tenderness., No significant calf/ankle edema. Labs Lab Results Component Value Date WBC 15.64 (H) 11/26/2020 HGB 8.8 (L) 11/26/2020 HCT 27.8 (L) 11/26/2020 PLT 309 11/26/2020 Iris Mcintosh DO 11/27/2020 7:12 AM Anesthesia Progress Note Comment: Patient not seen due to special isolation. Chart review shows pt alert and oriented x 4, ambulatory. No c/o positional headache, neck pain, or lower extremity paresthesia noted. Temp: [36.8 C-37.7 C] 36.8 C Heart Rate: [69-96] 78 Resp: [14-16] 16 BP: (110-159)/(54-93) 143/85 OB Vaginal Delivery Progress Note Patient Name: Brandt Peres : 1990 Admit Date: 11/25/2020 MR #: [id number] ASSESSMENT AND PLAN: Brandt Peres is a 30 y.o. PPD#1 s/p vacuum-assisted delivery. Status post vacuum-assisted vaginal delivery Assessment & Plan 1) Maternal Well Being: Doing Well. Obstetric Complications: COVID+ - Asymptomatic PTD at 36w5d Preeclampsia AST/ALT 128/116 > 124/150 > 174/143 P:Cr 0.8 Has not received mag, low threshold if severe features develop VAVD complicated by 4th degree - s/p Ancef 2g in L&D, colace BID and Miralax Vital Signs: BP has been mid mild range since delivery Pre-decliery Hgb: 10.9 > EBL 301cc > 8.8 2) Infant Well Being: Viable Female Infant 3) Post control: undecided 4) Disposition: Routine care follow-up with Dr. Crowell SUBJECTIVE: The patient did well overnight. There were no acute issues. Her pain is well controlled. She is tolerating a regular diet without nausea or vomiting. She has ambulated out of bed. Voiding without difficulty. She denies lightheadedness, dizziness, headache, vision changes, chest pain, shortness of breath, RUQ pain, and calf pain. Denies all pre-eclampsia like sx this am. Is requesting a 1 time dose of oxycodone due to pain at laceration site. OBJECTIVE: Vitals Temp: [98.1 F (36.7 C)-99.9 F (37.7 C)] 98.2 F (36.8 C) Heart Rate: [69-108] 78 Resp: [14-18] 16 BP: (76-159)/(40-93) 143/85 I/O last 3 completed shifts: In: - Out: 2301 [Urine:2000; Blood:301] Physical Exam General: No acute distress, resting comfortably in bed CV: HDS, no peripheral edema Pulm: Non-labored breaths Abd: Soft, appropriately tender to palpation, non-distended Neuro: No hyperreflexia,no clonus Uterus: Fundus firm @ U-2 Ext: No evidence of DVT seen on physical exam., No cords or calf tenderness., No significant calf/ankle edema. Labs Lab Results Component Value Date WBC 15.64 (H) 11/26/2020 HGB 8.8 (L) 11/26/2020 HCT 27.8 (L) 11/26/2020 PLT 309 11/26/2020 Bisi Colbert DO 11/26/2020 7:01 AM Labor Progress Note Brandt Peres is a 30 y.o. at 36w5d, admitted for admitted for PTL and asymptomatic COVID with mild range BP and elevated LFT. Last SCE 10/100/+1 to +2 FHT: 140/mod/+accels/variable/early decels with contractions Langdon: Q3min A/P - Patient has been pushing since 10:45am (>3hours). She has made some change in station from my last evaluation at 11:45am. Discussed operative vaginal delivery with patient. Pt states she does not want to do this unless she absolutely has to. Will continue to push wihilario Mendoza (PGY-2) in the room and I will reevaluate myself in 20 minutes. Emily Ballesteros DO OBGYN, PGY-3 11/25/2020 2:06 PM Labor Progress Note Brandt Peres is a 30 y.o. at 36w5d, admitted for admitted for PTL and asymptomatic COVID with mild range BP and elevated LFT. Last SCE 10 / 100 / +1. Pt is currently starting to push, has been complete for an hour. Working on finding the rhythm of pushing. BP 110/67 Pulse 91 Temp 99.9 F (37.7 C) (Oral) Resp 17 SpO2 100% FHT: 135 baseline / moderate variability / present accels / suspect early decels, however will continue to monitor Langdon: q4-5min Pitocin 2milliunits/min. Category 2 tracing. Continue current management plan. Anticipate vaginal delivery shortly. Bisi Colbert DO 11/25/2020 11:13 AM Labor Progress Note Brandt Peres is a 30 y.o. at 36w5d, admitted for PTL and asymptomatic COVID with mild range BP and elevated LFT. Last SCE 9 / 90 / 0. Pt is currently doing well, feeling increased pressure. BP (!) 145/70 Pulse 84 Temp 98.1 F (36.7 C) (Oral) Resp 18 SpO2 99% FHTc: 125 baseline / mod variability / + accels / no recent decels Langdon: q irregular min Pitocin 0milliunits/min. Category 1 tracing. Continue current management plan. Anticipate vaginal delivery shortly. If am labs show worsening or if she were to develop other severe features. Bisi Colbert DO 11/25/2020 7:27 AM LABOR UPDATE Subjective: Patient is doing well. Epidural in place, pt comfortable. Objective: Cervix: 6 / 80 / -1 FHT: 130 / mod variability / pos accelerations /neg decelerations Langdon: occas irritability BP 110/75 Pulse 93 Temp 98.7 F (37.1 C) (Oral) Resp 15 SpO2 100% Will continue with current management. Becca Rogers MD OBGYN PGY3 11/25/2020 5:27 AM documented in this encounter [facility] 11-26-2020 Consult note Associated Order(s): IP CONSULT TO [facility] [place] [address] See previous note. documented in this encounter [facility] 11-25-2020 [facility] [place] - 11/25/2020 Discharge Instructions and Information for after delivery: 1. Follow-up visit Contact information for your follow-up provider can be found under the follow-up section of your discharge paperwork. Generally we would like for you to follow-up with the provider you saw during your unless otherwise specified. Typically we recommend follow-up around 6 weeks after delivery, however, we encourage you to touch base with your provider in the first three weeks to be seen sooner if you are experiencing any of the following problems: depression, difficulty/pain with breast feeding, severe abdominal pain, fevers (>100.4), abnormal/foul-smelling discharge, heavy bleeding, or excessive stress. If you have had any problems with elevated blood pressures, we recommend close follow-up within 3-10 days (see elevated blood pressures below if this applies to you). 2. Elevated blood pressures If you experienced elevated blood pressures during your OR after delivery we recommend close follow-up as outlined below: If your blood pressures were >160/110 in the hospital we recommend that you have a blood pressure check ~3 days after discharge home. If your blood pressures were <160/110 but over 140/90 we recommend that you have a blood pressure check in the office 7-10 days after delivery. It is VERY important to come to your blood pressure visit as 50% of women who experience a stroke related to will experience this within 10 days of discharge. Close follow-up of your blood pressures is imperative. Please call your OB office if you experience any of the following: Persistent headache unrelieved by Tylenol or other medicines Spots/dots in your vision or vision changes Persistent pain in the right upper aspect of your abdomen Blood pressures >160/110 3. Adjusting to parenting Having a infant is tough work! Don't try to do it alone. There are several programs available to help you: [employer] is a program available that provides home visits and can help you to adjust to life with a new baby. They can be reached at the number provided: Phone: 7-306-268-[employer] (6869) 4. Breast feeding Breast feeding after delivery is encouraged. While we understand that this is not for everyone, there are many benefits of breast feeding such as passing on immune protection to baby, infant/mother bonding, faster weight loss after delivery, and cost. If you are having difficulty with breast feeding or note significant pain/redness of the breast please call the office to be seen sooner than your scheduled visit. Resources are available through [employer] (number above) 5. Post- blues/depression Baby blues and depression after delivery are common. You will experience major hormone shifts and typically are very sleep deprived. This is not something to be embarrassed of, but is something we would like for you to communicate with your OB provider. If you are feeling depressed, decreased energy, or are feeling emotionally unstable please call your OB provider to be seen sooner than your 6 week follow-up appointment. If you have any feelings of harming yourself or others please seek emergent treatment at your nearest emergency department. 6. Vaginal bleeding Some vaginal bleeding/spotting after delivery is expected If you experience heavy vaginal bleeding and are soaking a full pad every hour for more than two hours please seek emergent treatment 7. Infection Please call your OB provider if you experience fever >100.4, increasing abdominal pain, or any foul-smelling vaginal discharge as these could be signs of an infection. 8. section care: Incision: your incision is fine to be left open to the air and does not need a bandage after discharge unless you have been instructed differently by your provider or have a wound vacuum dressing in place. If you have julio in place we typically recommend that these are removed 7-10 days after your . Please call for an appointment if you do not already have one. Please call your OB provider if you notice and drainage or redness around your incision as these could be signs of infection Showering is fine after discharge home, but we recommend avoiding bathing in a bath tub for ~2 weeks Driving is not recommended until 4-6 weeks after your surgery and you are no longer taking narcotic pain medication. 9. Sleeping for baby: It's easy to remember the ABC's: Alone: babies should sleep alone and not in bed or on the couch with you as they can easily suffocate Back: babies should sleep on their backs Crib: babies should sleep in a crib. If you do not feel that you have a safe place for baby to sleep please call the Help me grow program above for resources 10. Sexual relationships/ control It is recommended to abstain from intercourse until >6 weeks after delivery and ideally after you have been seen by your OB provider for your follow-up visit We encourage you to have a discussion regarding control options prior to leaving the hospital While it is unlikely, it is still possible to get during this time frame so please talk to your OB provider about control plans to avoid pregnancies that are too close together Pregnancies that are too close together can increase your risk of several complications including pre-term delivery. The following attachments cannot be sent through Care Everywhere. Care (Kittitian) (Kittitian)Preeclampsia: : General Info (Kittitian)documented in this encounter [facility] 11-25-2020 History and physi bruna note OB History and Physical Note Patient Name: Brandt Peres : 1990 Admit Date: 11/25/2020 MR #: [id number] ASSESSMENT AND PLAN: Brandt Peres is a 30 y.o. at 36w5d who presents with PTL and asymptomatic COVID+. AF, mild range blood pressures, otherwise wnl HELLP labs pending COVID+; currently asymptomatic, continue to monitor for worsening symptoms OB Panel: will obtain records GBS unknown, will start penicillin Cervix: /-2 Will allow patient to continue to labor on her own Desires epidural, will consult anesthesia PPBC: undecided D/w Dr. Rogers, PGY-3, and Dr. Mirza, clinic attending. OB Care Plan Patient of Dr. Crowell SUBJECTIVE: Brandt Peres is a 30 y.o. at 36w5d who presents as a transfer from OSH for PTL and asymptomatic COVID+. She states that this has been an uncomplicated . She presented to the OSH with complaints of leakage of fluid and was found to be PPROM. She was not feeling contractions at that time. Her cervix was 1-2cm dilated. She required transfer to [facility] due to COVID+ status. She states while at the OSH waiting for transport she began to feel contractions and was given a dose of Nubain prior to transport. Since arriving she states that she is feeling contractions again and is very uncomfortable. She went to get tested for COVID on 11/20 due to feeling fatigued. She reports feeling improved and denies other COVID symptoms. She denies fevers, chills, nausea, vomiting, headache, vision changes, RUQ pain, or increased swelling. Review of Systems Patient reports movement: yes Patient reports loss of fluids: yes Patient reports vaginal bleeding: no Patient reports contractions: yes Patient denies headache, vision changes, chest pain, shortness of breath, RUQ pain, and leg pain. Past Medical History Obstetrical History OB History Para Term AB Living 1 0 SAB TAB Ectopic Multiple Live Births # Outcome Date GA Lbr Gavin/2nd Weight Sex Delivery Anes PTL Lv 1 Current Obstetric Comments Pt tested positive for covid Friday11/20/20 Gynecologic History Denies history of abnormal paps. Denies history of STIs. Past Medical History Past Medical History: Diagnosis Date Asthma HPV (human papilloma virus) anogenital infection 08/07/2017 Past Surgical History Past Surgical History: Procedure Laterality Date HIP SURGERY Left 1997 Family History Family History Problem Relation Age of Onset Cancer Mother Diabetes Maternal Grandfather Heart disease Maternal Grandfather Cancer Paternal Grandfather Medications Prior to Admission medications Medication Sig Start Date End Date Taking? Authorizing Provider acetaminophen (TYLENOL) 500 MG tablet Take 1,000 mg by mouth every 6 (six) hours as needed for pain Prn Reasons: backache. Historical Provider, ferrous sulfate 325 (65 FE) MG tablet Take 325 mg by mouth 2 (two) times a day . Historical Provider, vitamin with Ca-Iron-FA 27-1 mg Tab Take 1 tablet by mouth daily . Historical Provider, Allergies No Known Allergies Social History She reports that she has never smoked. She has never used smokeless tobacco. She reports previous alcohol use. OBJECTIVE: Vitals Temp: [97.5 F (36.4 C)-99 F (37.2 C)] 98.7 F (37.1 C) Heart Rate: [67-77] 74 Resp: [18-24] 24 BP: (136-153)/(71-95) 149/87 Physical Exam General: No acute distress, appears uncomfortable with contractions CV: Regular rate, no peripheral edema Pulm: Non-labored breaths Abd: Gravid, soft, nontender Ext: Nontender, no erythema Cervix: 4 / 80 / -2 FHT: 120 / modvar / + accels / - decels Langdon: Ctx q4mins Labs Lab Results Component Value Date ABORH A Positive 11/24/2020 ABSCRN Negative 11/24/2020 HEPBSAG Negative 2020 RPR Non-Reactive 10/03/2020 HIV1X2 Negative 2020 Iris Mcintosh DO 11/25/2020 1:07 AM Associated attestation - Kristen Mirza MD - 11/25/2020 4:01 PM EDT Discussed with and reviewed documentation by resident physician, Dr. Mcintosh. Agree with plan of care. documented in this encounter [facility] 11-24-2020 History and physi bruna note OBSTETRIC HISTORY AND PHYSICAL Chief complaint: at 36 weeks and 4 days gestation with spontaneous rupture of membranes. Also, patient is Covid positive and still has symptoms of cough and achiness and congestion. History of present illness: The patient is a very pleasant 30-year-old 1 female. Her last menstrual period was February 272019 with original due date of December 042020. However when she came in at supposedly 10 weeks and 3 days gestation the measurement of the baby was only 8 weeks and 3 days which changed her due date as above so we are very confident that she is in fact 36 weeks and 4 days gestation. She was feeling poorly last week and on Friday of this week she decided to go and was tested for Covid and was positive. She still has symptoms at the present time. She presented to the hospital complaining of spontaneous rupture membranes at 1300 hrs. today. Fluid was clear. She still has continued leakage of fluid at the present time but does not complain of labor. She has an AmniSure which was positive. Following current policy and protocol at [facility], I called for a transfer of this patient to [facility]. I spoke with Dr. aCrroll who accepted the patient in transfer. We are currently having difficulties obtaining ambulance transport. The patient's group B strep status is unknown. She was supposed to have had an office visit earlier in the week but it was canceled on once her Covid test came back positive. The tracing is reassuring. Past medical history: No chronic illnesses other than left hip arthritis pain. Allergies: No known drug allergies. Medications: vitamins. Surgeries: Hip surgery for chronically dislocated left hip. Social history: She is . She works at [employer]. She denies use of alcohol cigarettes or illicit drugs. Family history: Negative for bleeding disorders, heart disease, kidney disease, hypertension. Review of systems: Positive for cough, achiness, congestion. Negative for fever, chills, nausea, vomiting, decreased sensation of smell. Physical examination: She seems a little anxious about the unknown status of where she is going to deliver. 5 feet 1 inch. 191 pounds. 97.5. 72. Respiratory rate 16. 140/90. Head eyes ears nose and throat are within normal limits. The patient is wearing a mask. Neck is supple. Chest is clear. Heart is regular rate and rhythm without murmur. Breasts are without lesions. Back shows no costovertebral angle tenderness. Abdomen is soft and nontender with a fundal height of 35 cm. Extremities are without edema. External genitalia shows clear amniotic fluid. Cervix is 50% effaced 1-1/2 cm dilated and -2 station with a cephalic presentation. Pertinent labs: Positive AmniSure. monitoring: Category 1 tracing with rare contractions. Assessment and plan: This is a very pleasant 30-year-old female at 36 weeks and 4 days gestation with ruptured membranes who is not in active labor with an unknown group B strep status. Unfortunately, she is COVID-19 positive and still has symptoms. We have secured the transfer to [facility] however at this point we have no transport. We will continue to work on that. With her ruptured membranes and unknown group B strep status we will treat her with ampicillin. documented in this encounter [facility] 11-24-2020 Miscellaneous Notes reviewed documented in this encounter [facility] 11-24-2020 History of Presen t illness Narrative Pt states had a gush of fluid while sitting at 1300 today. States has had small amount of fluid leaking since then. Pt states and I lost my mucus plug this morning. documented in this encounter [facility] 10-16-2020 History of Presen t illness Narrative Pt requested to put therapy on hold for up to 30 days because her mother has recently been put on hospice. She states that she will call back when she is ready to resume therapy. She states she does not want to discharge at this date. [facility] DAILY TREATMENT NOTE Today's Date 10/16/2020 Patient Name: Brandt Peres Date of : 1990 Current Visit #: 8 Authorized Visits: 199 Case Name: Left hip pain History: Pre-Treatment Pain Scale: 2 Symptoms: gradually improved Functional Diagnosis: 1. Left hip pain 2. Trochanteric bursitis of left hip Clinical Information: Subjective: Pt reports she was in the hospital last Friday due to possible false labor. Reports she has been having less pain the last couple of weeks. Objective Treatments: Physical Therapy Exercise Log - 10/16/20 1615 OTHER Precautions/Contraindications L hip pain eval date: 09/11/20 Notes visit #8: 4:15 - 4:45 pm Therapeutic Exercise (41100) Intervention HS/piriformis stretch bilat 3x20 sec HOB elevate for all supine exercises pt is 31 weeks Parameters LTR 2 minutes Intervention SKTC [id number] Parameters supine manual IT band/ HS stretch [id number] Intervention Supine hip ABD/ADD- RTB/ball 5sec x10 Parameters Clamshells- x15 L LE only Intervention SINK- x15 bilat Parameters pelvic floor/abdominal bracing x10 Intervention abd bracing with SLR-2x10 Parameters LSDC to correct pelvic alignment Manual Therapy (02959) Intervention STM L greater trochanter Parameters 10min, sidelying Additional Exercises Add more exercises? Yes PT Treatment Times Therex Total Time 20 Manual Therapy Total Time 10 Direct Treatment Time 30 Total Treatment Time 30 Goals: Physical Therapy Ortho Goals: MOBILITY: Patient will be able to ambulate on uneven surfaces without difficulty in 6 weeks. MOBILITY: Patient will be able to ambulate for 1 hour without difficulty in 6 weeks. MOBILITY: Patient will be able to ascend/descend stairs without difficulty in 6 weeks. CARRYING/MOVING/HANDLING: Patient will be able to carry 0-10 lbs in 6 weeks IMPAIRMENT: Patient will demonstrate improved postural awareness in PT sessions to facilitate mechanical alignment and function in 4 weeks. IMPAIRMENT: Improve pain from 8/10 to 4/10 at the worst in 6 weeks IMPAIRMENT: Improve MMT of Left Hip flexion from 3+/5 to 4+/5 in 6 weeks IMPAIRMENT: Improve MMT of Left Hip Abduction from 3+/5 to 4+/5 in 6 weeks IMPAIRMENT: Improve MMT of Left Hip Adduction from 4-/5 to 4+/5 in 6 weeks OTHER: Patient will increase FOTO score to at least 73 to show MDC/MCII and expected functional outcome in 6 weeks. OTHER: Patient will be able to properly demonstrate independence with HEP in 2 weeks. Patient Education: Quality of movement and Verbal HEP with patient demonstrated understanding and verbalized understanding. Post-Treatment Pain Scale: 2 Assessment: Patient had an expected response to treatment. Skilled Intervention demonstrated by modifications of treatment per exercise log including assessment of patient's response and safety interventions per exercise log. Progress towards goals as expected and no increased pain throughout Rx. Plan for Next Visit: Treatment Visit with focus on flexibility. Mariah Sinha PTA STATE LICENSE, [id number] documented in this encounter [facility] Evaluation note Diagnosis Left hip pain Pain in joint, pelvic region and thigh Trochanteric bursitis of left hip [facility] Diagnosis labor in third trimester without delivery- Primary Status post vacuum-assisted vaginal delivery [facility] Diagnosis Acute bronchitis, unspecified organism- Primary Bilateral acute otitis media Unspecified otitis media documented in this encounter [facility]* Diagnosis Encounter for weight management Wellness examination documented in this encounter [facility]* Diagnosis Influenza A- Primary Influenza with other respiratory manifestations Cough, unspecified type documented in this encounter [facility]* Diagnosis Follow-up encounter involving medication documented in this encounter [facility] Healthcare Summary Purpose Family History No Family History Records FoundNo Family History Records FoundNo Family History Records FoundNo Family History Records FoundNo Family History Records FoundNo Family History Records FoundNo Family History Records Found Advance Directives Documents on File Type Date Recorded Patient [employer] Expl anation Advance Directives and Living Will Documents on File Type Date Recorded Patient [employer] Expl anation Advance Directives and Livin g Will 09/11/2020 1:03 PM Documents on File Type Date Recorded Patient [employer] Expl anation Advance Directives and Livin g Will 10/11/2020 1:36 PM Documents on File Type Date Recorded Patient [employer] Expl anation Advance Directives and Livin g Will 11/25/2020 1:59 AM Latest Code Status on File Code Status Date Activated Date Inactivated Comments Full Code 11/25/2020 1:31 AM Latest Code Status on File Code Status Date Activated Date Inactivated Comments Full Code 11/25/2020 8:36 PM 11/27/2020 8:00 PM Full Code 11/25/2020 1:31 AM 11/25/2020 4:37 PM Reason for Referral Status Reason Specialty Diagnoses / Procedures Referred By Contact Referred To Contact Authorized Sports Medicine Diagnoses Left hip pain Trochanteric bursitis of left hip Fabiana Pacheco, BRANDI [address] [facility] [address] [place] [address] [address] [facility] [address] [place] [address] Assessments Diagnosis Left hip pain- Primary Pain in joint, pelvic region and thigh Trochanteric bursitis of left hip Diagnosis Left hip pain Pain in joint, pelvic region and thigh Trochanteric bursitis of left hip Diagnosis Trochanteric bursitis of left hip- Primary Left hip pain Pain in joint, pelvic region and thigh History of Present Illness * Marcello Baltazar, PT - 09/11/2020 1:15 PM EDT [facility] Evaluation Today's Date 09/11/2020 Patient Name: Brandt Peres Date of : 1990 Case Name: Left hip pain Functional Diagnosis: 1. Left hip pain 2. Trochanteric bursitis of left hip Clinical Information: CPT Code 16782 Low 12783 Moderate 53397 High History 0 1-2 3+ Comorbidities: prior surgical history, Personal factors: chronicity or severity of the current condition, stress and Pt is Examination of body systems (elements of body structures & functions, activity limitations, and/or participation restrictions) 1-2 elements 3+ elements 4+ elements See below clinical impression Clinical Presentation Stable Evolving Unstable As evidenced by reproduction of or changes in symptoms with certain movements Decision Making Low (FOTO >/= 69) Moderate (FOTO 34 - 68) High (FOTO </= 33) FOTO score= 42 Pt is a 30 y.o. female who presents to PT services with c/o L hip pain. Upon assessment, pt has been found with the following impairments: impaired posture, decreased ROM, decreased strength, antalgic gait and pain. 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 The pt would benefit from skilled PT services focused on the above listed impairments and limitations in order to safely progress pt to their desired level of function. Pt to be discharged from OP PT services if/when goals are met, if they fail to make progress with conservative management in PT, if their level of progress plateaus, or if they do not maintain compliance with attendance or HEP. At this time, it is my clinical judgment that services are medically necessary. Subjective Referring Diagnosis: Left hip pain (M25.552 (ICD-10-CM)); Trochanteric bursitis of left hip (M70.62(ICD-10-CM)) Patient accompanied by: unaccompanied History of Present Illness Subjective History: Pt reports to patient physical therapy with complaints of L hip pain. She stateshe had hip surgery when she was little for hip dysplasia however she hasn't had much difficulty since then. Pt reports she is 26 weeks . She reports that her pain is in hip and it sometimesradiates down her knee. Pt reports that her pain is constant and aching. 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 She reports that she has less pain now she is off work. Pt reports that walking long distances and standing for long periods increase her pain. Previous Treatment for this condition: No Hand dominance: right Pain Scale: Pain location: hip and knee Average Pain: 5/10 Pain at highest: 8/10 Aggravating factors: working Easing factors: Heating pad Personal Goals: Decrease pain. Social Support: Baptism, social, or cultural considerations to be made aware of before starting treatment: No Red Flags: None Comments: Barriers to Care: None Fall risk screening Fallen 2 or more times in the last 12 months: No Injured as a result of a fall in the last 12 months: No Baptism, social, or cultural considerations to be made aware of before starting treatment: No Hip Right Hip Right Hip WFL Range of Motion: Flexion Passive: 113 IR Passive: 31 ER Passive: 45 Muscle Strength: Flexion: 5 Abduction: 5 Adduction: 5 Special Tests Vivek: Negative Romina: Positive Yehuda: Negative Other Sensation: normal Left Hip Tenderness: IT Band, greater trochanter and lateral Range of Motion: Flexion Passive: 103 IR Passive: 26 ER Passive: 19 Muscle Strength: Flexion: 3+ Abduction: 3+ Adduction: 4- Special Tests Vivek: Positive Romina: Positive Yehuda: Negative Other Sensation: normal Knee Right Knee Muscle Strength: Flexion: 5 Extension: 5 Left Knee Muscle Strength Flexion: 4- Extension: 3+ Ankle/Foot Right Ankle/Foot Muscle Strength: DorsiFlexion: 5 Left Ankle/Foot Muscle Strength: DorsiFlexion: 5 FOTO Score - 09/11/20 1408 OTHER FOTO Score 42 Treatments: Physical Therapy Exercise Log - 09/11/20 1404 OTHER Precautions/Contraindications L hip pain eval date: 09/11/20 Notes visit #1: 1:15-2:00 Therapeutic Exercise (02819) Intervention HS/piraformis stretch bilat 2x20 sec HOB elevate for all supine exercises pt is 26 weeks Parameters LTR [id number] Intervention SKTC [id number] Parameters standing IT band stretch [id number] PT Treatment Times Therex Total Time 15 Direct Treatment Time 15 Total Treatment Time 45 Treatment Plan: Frequency of Visits: twice per week Duration: 6 weeks Interventions: Therapeutic Exercise, Neuromuscular Re-Education, Manual Therapy, Therapeutic/ Functional Activities and Hot/Cold Pack Rehab Potential: good Goals: Physical Therapy Ortho Goals: MOBILITY: Patient will be able to ambulate on uneven surfaces without difficulty in 6 weeks. MOBILITY: Patient will be able to ambulate for 1 hour without difficulty in 6 weeks. MOBILITY: Patient will be able to ascend/descend stairs without difficulty in 6 weeks. CARRYING/MOVING/HANDLING: Patient will be able to carry 0-10 lbs in 6 weeks IMPAIRMENT: Patient will demonstrate improved postural awareness in PT sessions to facilitate mechanical alignment and function in 4 weeks. IMPAIRMENT: Improve pain from 8/10 to 4/10 at the worst in 6 weeks IMPAIRMENT: Improve MMT of Left Hip flexion from 3+/5 to 4+/5 in 6 weeks IMPAIRMENT: Improve MMT of Left Hip Abduction from 3+/5 to 4+/5 in 6 weeks IMPAIRMENT: Improve MMT of Left Hip Adduction from 4-/5 to 4+/5 in 6 weeks OTHER: Patient will increase FOTO score to at least 73 to show MDC/MCII and expected functional outcome in 6 weeks. OTHER: Patient will be able to properly demonstrate independence with HEP in 2 weeks. Patient Education provided: Provided education on POC and HEP. Provided verbal and written HEP. Pt demonstrated and verbalized understanding for all education throughout session. Clinical Impression: Pt is a 30 y.o. female who presents to PT services with c/o L hip pain. Upon assessment, pt has been found with the following impairments: impaired posture, decreased ROM, decreased strength, antalgic gait and pain. 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 The pt would benefit from skilled PT services focused on the above listed impairments and limitations in order to safely progress pt to their desired level of function. Pt to be discharged from OP PT services if/when goals are met, if they fail to make progress with conservative management in PT, if their level of progress plateaus, or if they do not maintain compliance with attendance or HEP. At this time, it is my clinical judgment that services are medically necessary. Marcello Baltazar PT STATE LICENSE, [id number] documented in this encounter* Mariah Sinha, PROGRESS CLERK - 09/18/2020 4:15 PM EDT [facility] [place] OUTPATIENT REHABILITATION DAILY TREATMENT NOTE Today's Date 09/18/2020 Patient Name: Brandt Peres Date of : 1990 Current Visit #: 2 Authorized Visits: 199 Case Name: Left hip pain History: Pre-Treatment Pain Scale: 5 Symptoms: stabilized Functional Diagnosis: 1. Left hip pain 2. Trochanteric bursitis of left hip Clinical Information: Subjective: pt reports no change in pain since IE. Objective Treatments: Physical Therapy Exercise Log - 09/18/20 1620 OTHER Precautions/Contraindications L hip pain eval date: 09/11/20 Notes visit #2: 4:20-5:00 Therapeutic Exercise (67986) Intervention HS/piraformis stretch bilat 3x20 sec HOB elevate for all supine exercises pt is 26 weeks Parameters LTR [id number] Intervention SKTC [id number] Parameters standing IT band stretch [id number] Intervention Supine hip ABD/ADD- RTB/ball 5sec x10 Parameters Clamshells- x10 bilat Intervention SINK- x10 bilat Parameters Administration of SI lock Manual Therapy (28351) Intervention STM L greater trochanter Parameters 10min, supin with head elevated PT Treatment Times Therex Total Time 40 Direct Treatment Time 40 Total Treatment Time 40 Goals: Physical Therapy Ortho Goals: MOBILITY: Patient will be able to ambulate on uneven surfaces without difficulty in 6 weeks. MOBILITY: Patient will be able to ambulate for 1 hour without difficulty in 6 weeks. MOBILITY: Patient will be able to ascend/descend stairs without difficulty in 6 weeks. CARRYING/MOVING/HANDLING: Patient will be able to carry 0-10 lbs in 6 weeks IMPAIRMENT: Patient will demonstrate improved postural awareness in PT sessions to facilitate mechanical alignment and function in 4 weeks. IMPAIRMENT: Improve pain from 8/10 to 4/10 at the worst in 6 weeks IMPAIRMENT: Improve MMT of Left Hip flexion from 3+/5 to 4+/5 in 6 weeks IMPAIRMENT: Improve MMT of Left Hip Abduction from 3+/5 to 4+/5 in 6 weeks IMPAIRMENT: Improve MMT of Left Hip Adduction from 4-/5 to 4+/5 in 6 weeks OTHER: Patient will increase FOTO score to at least 73 to show MDC/MCII and expected functional outcome in 6 weeks. OTHER: Patient will be able to properly demonstrate independence with HEP in 2 weeks. Patient Education: Quality of movement and Verbal HEP with patient demonstrated understanding and verbalized understanding. Post-Treatment Pain Scale: 3 Assessment: Patient had an expected response to treatment. Skilled Intervention demonstrated by modifications of treatment per exercise log including increased load, increased intensity, increased volume and assessment of patient's response and safety interventions per exercise log. Progress towards goals as expected and added STM to decrease pain and increase tissue mobility.. Plan for Next Visit: Treatment Visit with focus on hip strength, STM Mariah Sinha PTA STATE LICENSE, [id number] documented in this encounter* Marcello Baltazar, PT - 09/20/2020 4:15 PM EDT [facility] [place] OUTPATIENT REHABILITATION DAILY TREATMENT NOTE Today's Date 09/20/2020 Patient Name: Brandt Peres Date of : 1990 Current Visit #: 3 Authorized Visits: 199 Case Name: Left hip pain History: Pre-Treatment Pain Scale: 5 Symptoms: gradually improved Functional Diagnosis: 1. Left hip pain 2. Trochanteric bursitis of left hip Clinical Information: Subjective: Pt reports nothing new this date. Objective Treatments: Physical Therapy Exercise Log - 09/20/20 1617 OTHER Precautions/Contraindications L hip pain eval date: 09/11/20 Notes visit #3: 4:15-5:05 Therapeutic Exercise ([id number]) Intervention HS/piraformis stretch bilat 3x20 sec HOB elevate for all supine exercises pt is 26 weeks Parameters LTR [id number] Intervention SKTC [id number] Parameters standing IT band stretch [id number] Intervention Supine hip ABD/ADD- RTB/ball 5sec x10 Parameters Clamshells- x10 bilat Intervention SINK- x15 bilat Manual Therapy ([id number]) Intervention STM L greater trochanter Parameters 10min, supin with head elevated Additional Exercises Add more exercises? Yes Modalities Modalities Hot packs Parameters 10 minutes, L hip and IT band in R sidelying PT Treatment Times Therex Total Time 30 Manual Therapy Total Time 10 Modalities Total Time 10 Direct Treatment Time 50 Total Treatment Time 50 Goals: Physical Therapy Ortho Goals: MOBILITY: Patient will be able to ambulate on uneven surfaces without difficulty in 6 weeks. MOBILITY: Patient will be able to ambulate for 1 hour without difficulty in 6 weeks. MOBILITY: Patient will be able to ascend/descend stairs without difficulty in 6 weeks. CARRYING/MOVING/HANDLING: Patient will be able to carry 0-10 lbs in 6 weeks IMPAIRMENT: Patient will demonstrate improved postural awareness in PT sessions to facilitate mechanical alignment and function in 4 weeks. IMPAIRMENT: Improve pain from 8/10 to 4/10 at the worst in 6 weeks IMPAIRMENT: Improve MMT of Left Hip flexion from 3+/5 to 4+/5 in 6 weeks IMPAIRMENT: Improve MMT of Left Hip Abduction from 3+/5 to 4+/5 in 6 weeks IMPAIRMENT: Improve MMT of Left Hip Adduction from 4-/5 to 4+/5 in 6 weeks OTHER: Patient will increase FOTO score to at least 73 to show MDC/MCII and expected functional outcome in 6 weeks. OTHER: Patient will be able to properly demonstrate independence with HEP in 2 weeks. Patient Education: Quality of movement with patient demonstrated understanding and verbalized understanding. Post-Treatment Pain Scale: 5 Assessment: Patient had an expected response to treatment. Skilled Intervention demonstrated by modifications of treatment per exercise log including increased rate and safety interventions per exercise log. Progress towards goals as expected. Plan for Next Visit: Treatment Visit with focus on flexibilty. Marcello Baltazar PT STATE LICENSE, [id number] documented in this encounter* Fabiana Pacheco, AUTO SERVICE MECHANIC - 07/17/2020 2:00 PM EST Brandt ePres 1990 CC: 30 y.o. is a she with No chief complaint on file. . Hip Pain Patient complains of left hip pain. Onset of the symptoms was several years ago when her left hip was dislocated and they placed hardware. She has been doing well with the exception of a few times here and there but this pain has been going on for several weeks now so her OBGYN thought she should be evaluated. She is 18 weeks . Inciting event: none. The patient reports the hip pain is aggravated by walking. Associated symptoms: some pain to the knee. Aggravating symptoms include: going up and down stairs, lateral movements and laying on her hip. Patient has had prior hip problems. Previous visits for this problem: none. Evaluation to date: none. Treatment to date: none. Rates the left hip pain 10/07 today. PMH: No Known Allergies No current outpatient medications on file. History reviewed. No pertinent past medical history. History reviewed. No pertinent surgical history. Social History Socioeconomic History Marital status: Spouse name: Not on file Number of children: Not on file Years of education: Not on file Highest education level: Not on file Occupational History Not on file Social Needs Financial resource strain: Not on file Food insecurity Worry: Not on file Inability: Not on file Transportation needs Medical: Not on file Non-medical: Not on file Tobacco Use Smoking status: Not on file Substance and Sexual Activity Alcohol use: Not on file Drug use: Not on file Sexual activity: Not on file Lifestyle Physical activity Days per week: Not on file Minutes per session: Not on file Stress: Not on file Relationships Social connections Talks on phone: Not on file Gets together: Not on file Attends confucianism service: Not on file Active member of club or organization: Not on file Attends meetings of clubs or organizations: Not on file Relationship status: Not on file Other Topics Concern Not on file Social History Narrative Not on file ROS: Review of Systems Constitutional: Negative for activity change and fatigue. HENT: Negative. Eyes: Negative. Respiratory: Negative for chest tightness and shortness of breath. Cardiovascular: Negative for chest pain. Gastrointestinal: Negative. Endocrine: Negative. Genitourinary: Negative. Musculoskeletal: Positive for arthralgias. Skin: Negative for color change. Allergic/Immunologic: Negative. Neurological: Negative for dizziness, light-headedness and numbness. Hematological: Negative. Psychiatric/Behavioral: Negative for agitation. PE: Physical Exam Constitutional: She is oriented to person, place, and time. She appears well- developed and well-nourished. HENT: Head: Normocephalic and atraumatic. Eyes: Pupils are equal, round, and reactive to light. Neck: Normal range of motion. Neck supple. Cardiovascular: Normal rate and regular rhythm. Pulmonary/Chest: Effort normal and breath sounds normal. Abdominal: Soft. Musculoskeletal: General: Tenderness present. Neurological: She is alert and oriented to person, place, and time. Skin: Skin is warm and dry. Psychiatric: She has a normal mood and affect. Her behavior is normal. Right Hip Exam Right hip exam is normal. Left Hip Exam Tenderness The patient is experiencing tenderness in the greater trochanter and lateral. Range of Motion The patient has normal left hip ROM. Muscle Strength The patient has normal left hip strength. Tests VIVEK: positive Romina: negative Other Erythema: absent Scars: absent Sensation: normal Pulse: present Comments: Positive figure 4 Imaging: None due to Diagnosis: Problem List Items Addressed This Visit None Visit Diagnoses Trochanteric bursitis of left hip - Primary Left hip pain Plan: Discussed symptoms and physical exam with the patient. With her being we are unable to do an xray today. I think she has bursitis to the left hip based on exam. Offered physical therapy to help with hip pain. Advised her to rest her hip as much as possible. She is unable to take antiinflammatories. She is wanting to try some home exercises instead at this point. If these do not help she will try going to PT. She will call the office if needed. Told her we can do a better workup after she has her baby, she understands all of this and agrees to proceed. She will follow up with me as needed. Follow Up: Return if symptoms worsen or fail to improve. Fabiana Pacheco CNP documented in this encounter* Marcello Baltazar, PT - 09/28/2020 4:15 PM EDT [facility] [place] OUTPATIENT REHABILITATION DAILY TREATMENT NOTE Today's Date 09/28/2020 Patient Name: Brandt Peres Date of : 1990 Current Visit #: 4 Authorized Visits: 199 Case Name: Left hip pain History: Pre-Treatment Pain Scale: 5 Symptoms: gradually improved Functional Diagnosis: 1. Left hip pain 2. Trochanteric bursitis of left hip Clinical Information: Subjective: Pt reports that she feels about the same today. She reports that she is getting fatter and it is hard to sleep. She states she had increased soreness after last session. Objective Treatments: Physical Therapy Exercise Log - 09/28/20 1613 OTHER Precautions/Contraindications L hip pain eval date: 09/11/20 Notes visit #4: 4:15-4:55 Therapeutic Exercise ([id number]) Intervention HS/piraformis stretch bilat 3x20 sec HOB elevate for all supine exercises pt is 26 weeks Parameters LTR 2 minutes Intervention SKTC [id number] Parameters supine manual IT band/ HS stretch [id number] Intervention Supine hip ABD/ADD- RTB/ball 5sec x10 Parameters Clamshells- x15 L LE only Intervention SINK- x15 bilat (NT 09/28) Parameters pelvic floor/abdominal bracing x10 Intervention abd bracing with SLR Manual Therapy (51055) Intervention STM L greater trochanter Parameters 10min, sidelying Additional Exercises Add more exercises? Yes Modalities Modalities -- Parameters -- PT Treatment Times Therex Total Time 30 Manual Therapy Total Time 10 Direct Treatment Time 40 Total Treatment Time 40 Goals: Physical Therapy Ortho Goals: MOBILITY: Patient will be able to ambulate on uneven surfaces without difficulty in 6 weeks. MOBILITY: Patient will be able to ambulate for 1 hour without difficulty in 6 weeks. MOBILITY: Patient will be able to ascend/descend stairs without difficulty in 6 weeks. CARRYING/MOVING/HANDLING: Patient will be able to carry 0-10 lbs in 6 weeks IMPAIRMENT: Patient will demonstrate improved postural awareness in PT sessions to facilitate mechanical alignment and function in 4 weeks. IMPAIRMENT: Improve pain from 8/10 to 4/10 at the worst in 6 weeks IMPAIRMENT: Improve MMT of Left Hip flexion from 3+/5 to 4+/5 in 6 weeks IMPAIRMENT: Improve MMT of Left Hip Abduction from 3+/5 to 4+/5 in 6 weeks IMPAIRMENT: Improve MMT of Left Hip Adduction from 4-/5 to 4+/5 in 6 weeks OTHER: Patient will increase FOTO score to at least 73 to show MDC/MCII and expected functional outcome in 6 weeks. OTHER: Patient will be able to properly demonstrate independence with HEP in 2 weeks. Patient Education: Quality of movement with patient demonstrated understanding and verbalized understanding. Post-Treatment Pain Scale: 5 Assessment: Patient had an expected response to treatment. Skilled Intervention demonstrated by modifications of treatment per exercise log including decreased load and assessment of patient's response and safety interventions per exercise log. Progress towards goals as expected. Plan for Next Visit: Treatment Visit with focus on flexiblity and strengthening. Marcello Baltazar PT STATE LICENSE, [id number] documented in this encounter* Mariah Sinha, PROGRESS CLERK - 10/04/2020 4:15 PM EDT [facility] [place] OUTPATIENT REHABILITATION DAILY TREATMENT NOTE Today's Date 10/04/2020 Patient Name: Brandt Peres Date of : 1990 Current Visit #: 6 Authorized Visits: 199 Case Name: Left hip pain History: Pre-Treatment Pain Scale: 7 Symptoms: gradually worsened Functional Diagnosis: 1. Left hip pain 2. Trochanteric bursitis of left hip Clinical Information: Subjective: Pt reports increased L hip pain from working 8 hours today. Objective Treatments: Physical Therapy Exercise Log - 10/04/20 1617 OTHER Precautions/Contraindications L hip pain eval date: 09/11/20 Notes visit #6: 4:17-4:50 Therapeutic Exercise ([id number]) Intervention HS/piriformis stretch bilat 3x20 sec HOB elevate for all supine exercises pt is 26 weeks Parameters LTR 2 minutes Intervention SKTC [id number] Parameters supine manual IT band/ HS stretch [id number] Intervention Supine hip ABD/ADD- RTB/ball 5sec x10 Parameters Clamshells- x15 L LE only Intervention SINK- x15 bilat (NT 09/28) Parameters pelvic floor/abdominal bracing x10 Intervention abd bracing with SLR-2x10 Parameters supine hip ABD/ADD- BTB/ball 5sec x 10 ea Manual Therapy ([id number]) Intervention STM L greater trochanter Parameters 10min, sidelying Additional Exercises Add more exercises? Yes PT Treatment Times Therex Total Time 33 Direct Treatment Time 33 Total Treatment Time 33 Goals: Physical Therapy Ortho Goals: MOBILITY: Patient will be able to ambulate on uneven surfaces without difficulty in 6 weeks. MOBILITY: Patient will be able to ambulate for 1 hour without difficulty in 6 weeks. MOBILITY: Patient will be able to ascend/descend stairs without difficulty in 6 weeks. CARRYING/MOVING/HANDLING: Patient will be able to carry 0-10 lbs in 6 weeks IMPAIRMENT: Patient will demonstrate improved postural awareness in PT sessions to facilitate mechanical alignment and function in 4 weeks. IMPAIRMENT: Improve pain from 8/10 to 4/10 at the worst in 6 weeks IMPAIRMENT: Improve MMT of Left Hip flexion from 3+/5 to 4+/5 in 6 weeks IMPAIRMENT: Improve MMT of Left Hip Abduction from 3+/5 to 4+/5 in 6 weeks IMPAIRMENT: Improve MMT of Left Hip Adduction from 4-/5 to 4+/5 in 6 weeks OTHER: Patient will increase FOTO score to at least 73 to show MDC/MCII and expected functional outcome in 6 weeks. OTHER: Patient will be able to properly demonstrate independence with HEP in 2 weeks. Patient Education: Quality of movement and Verbal HEP with patient demonstrated understanding and verbalized understanding. Post-Treatment Pain Scale: 7 Assessment: Patient had an expected response to treatment. Skilled Intervention demonstrated by modifications of treatment per exercise log including assessment of patient's response and safety interventions per exercise log. Progress towards goals as expected and pt had no change in Pain after Rx.. Plan for Next Visit: Treatment Visit with focus on core/pelvic strength. Mariah Sinha PTA STATE LICENSE, [id number] documented in this encounter* Logan Radford, PT - 10/09/2020 4:15 PM EDT [facility] [place] OUTPATIENT REHABILITATION DAILY TREATMENT NOTE Today's Date 10/09/2020 Patient Name: Brandt Peres Date of : 1990 Current Visit #: 7 Authorized Visits: 199 Case Name: Left hip pain History: Pre-Treatment Pain Scale: 1 Symptoms: gradually improved Functional Diagnosis: 1. Left hip pain 2. Trochanteric bursitis of left hip Clinical Information: Subjective: Pt reports that today is a good day and that she has very little LBP currently. Objective Treatments: Physical Therapy Exercise Log - 10/09/20 1619 OTHER Precautions/Contraindications L hip pain eval date: 09/11/20 Notes visit #7: 4:20 - 5:00 pm Therapeutic Exercise ([id number]) Intervention HS/piriformis stretch bilat 3x20 sec HOB elevate for all supine exercises pt is 26 weeks Parameters LTR 2 minutes Intervention SKTC [id number] Parameters supine manual IT band/ HS stretch [id number] Intervention Supine hip ABD/ADD- RTB/ball 5sec x10 Parameters Clamshells- x15 L LE only Intervention SINK- x15 bilat (NT 09/28) Parameters pelvic floor/abdominal bracing x10 Intervention abd bracing with SLR-2x10 Manual Therapy ([id number]) Intervention STM L greater trochanter Parameters 10min, sidelying Additional Exercises Add more exercises? Yes PT Treatment Times Therex Total Time 30 Manual Therapy Total Time 10 Direct Treatment Time 40 Total Treatment Time 40 Goals: Physical Therapy Ortho Goals: MOBILITY: Patient will be able to ambulate on uneven surfaces without difficulty in 6 weeks. MOBILITY: Patient will be able to ambulate for 1 hour without difficulty in 6 weeks. MOBILITY: Patient will be able to ascend/descend stairs without difficulty in 6 weeks. CARRYING/MOVING/HANDLING: Patient will be able to carry 0-10 lbs in 6 weeks IMPAIRMENT: Patient will demonstrate improved postural awareness in PT sessions to facilitate mechanical alignment and function in 4 weeks. IMPAIRMENT: Improve pain from 8/10 to 4/10 at the worst in 6 weeks IMPAIRMENT: Improve MMT of Left Hip flexion from 3+/5 to 4+/5 in 6 weeks IMPAIRMENT: Improve MMT of Left Hip Abduction from 3+/5 to 4+/5 in 6 weeks IMPAIRMENT: Improve MMT of Left Hip Adduction from 4-/5 to 4+/5 in 6 weeks OTHER: Patient will increase FOTO score to at least 73 to show MDC/MCII and expected functional outcome in 6 weeks. OTHER: Patient will be able to properly demonstrate independence with HEP in 2 weeks. Patient Education: Quality of movement and Verbal HEP with patient demonstrated understanding and verbalized understanding. Post-Treatment Pain Scale: 1 Assessment: Patient had an expected response to treatment. Good form and tolerance to all ex's performed today. Skilled Intervention demonstrated by modifications of treatment per exercise log including increased load and increased rate and safety interventions per exercise log. Progress towards goals as expected. Plan for Next Visit: Treatment Visit with focus on LE strength, core stabilty ex's and mannual therapy. Logan Radford PT STATE LICENSE, [id number] documented in this encounter Instructions * Patient Instructions* Fabiana Pacheco, BRANDI - 07/17/2020 2:14 PM EST Hip Bursitis: Care Instructions Your Care Instructions Bursitis is inflammation of the bursa. A bursa is a small sac of fluid that cushions a joint and helps it move easily. A bursa sits between a bone in the hip and the muscles and tendons in the thigh and buttock. Injury or overuse of the hip can cause bursitis. Activities that can lead to bursitis include twisting and rapid joint movement. Bursitis can cause hip pain. Bursitis usually gets better if you avoid the activity that caused it. If pain lasts or gets worse despite home treatment, your doctor may draw fluid from the bursa through a needle. This may relieveyour pain and help your doctor know if you have an infection. If so, your doctor will prescribe antibiotics. If you have inflammation only, you may get a corticosteroid shot to reduce swelling and pain. Sometimes surgery is needed to drain or remove the bursa. Follow-up care is a ross part of your treatment and safety. Be sure to make and go to all appointments, and call your doctor if you are having problems. It's also a good idea to know your test resultsand keep a list of the medicines you take. How can you care for yourself at home? Put ice or a cold pack on your hip for 10 to 20 minutes at a time. Put a thin cloth between the iceand your skin. After 3 days of using ice, you may use heat on your hip. You can use a hot water bottle, a heating pad set on low, or a warm, moist towel. Rest your hip. Stop any activities that cause pain. Switch to activities that do not stress your hip. Take your medicines exactly as prescribed. Call your doctor if you think you are having a problem with your medicine. Ask your doctor if you can take an [id number]-nol-zbtujcp pain medicine, such as acetaminophen (Tylenol),ibuprofen (Advil, Motrin), or naproxen (Aleve). Be safe with medicines. Read and follow all instructions on the label. To prevent stiffness, gently move the hip joint as much as you can without pain every day. As the pain gets better, keep doing [id number]-ca-xdovac exercises. Ask your doctor for exercises that will make the muscles around the hip joint stronger. Do these as directed. You can slowly return to the activity that caused the pain, but do it with less effort until you can do it without pain or swelling. Be sure to warm up before and stretch after you do the activity. When should you call for help? Call your doctor now or seek immediate medical care if: You have a fever. You have increased swelling or redness in your hip. You cannot use your hip, or the pain in your hip gets worse. Watch closely for changes in your health, and be sure to contact your doctor if: You have pain for 2 weeks or longer despite home treatment. Where can you learn more? Log into your personal health record on https://[employer] and enter I156 in the Education box to learn more about Hip Bursitis: Care Instructions. Current as of: August 30, 2019 Content Version: 12.7 [employer] Care instructions adapted under license by your healthcare professional. If you have questions about a medical condition or this instruction, always ask your healthcare professional. [employer] disclaims any warranty or liability for your use of this information. Hip Bursitis: Exercises Introduction Here are some examples of exercises for you to try. The exercises may be suggested for a condition or for rehabilitation. Start each exercise slowly. Ease off the exercises if you start to have pain. You will be told when to start these exercises and which ones will work best for you. How to do the exercises Hip rotator stretch 1. Lie on your back with both knees bent and your feet flat on the floor. 2. Put the ankle of your affected leg on your opposite thigh near your knee. 3. Use your hand to gently push your knee away from your body until you feel a gentle stretch around your hip. 4. Hold the stretch for 15 to 30 seconds. 5. Repeat 2 to 4 times. 6. Repeat steps 1 through 5, but this time use your hand to gently pull your knee toward your opposite shoulder. Iliotibial band stretch 1. Lean sideways against a wall. If you are not steady on your feet, hold on to a chair or counter. 2. Stand on the leg with the affected hip, with that leg close to the wall. Then cross your other leg in front of it. 3. Let your affected hip drop out to the side of your body and against wall. Then lean away from your affected hip until you feel a stretch. 4. Hold the stretch for 15 to 30 seconds. 5. Repeat 2 to 4 times. Straight-leg raises to the outside 1. Lie on your side, with your affected hip on top. 2. Tighten the front thigh muscles of your top leg to keep your knee straight. 3. Keep your hip and your leg straight in line with the rest of your body, and keep your knee pointing forward. Do not drop your hip back. 4. Lift your top leg straight up toward the ceiling, about 12 inches off the floor. Hold for about 6 seconds, then slowly lower your leg. 5. Repeat 8 to 12 times. Clamshell 1. Lie on your side, with your affected hip on top and your head propped on a pillow. Keep your feet and knees together and your knees bent. 2. Raise your top knee, but keep your feet together. Do not let your hips roll back. Your legs should open up like a clamshell. 3. Hold for 6 seconds. 4. Slowly lower your knee back down. Rest for 10 seconds. 5. Repeat 8 to 12 times. Follow-up care is a ross part of your treatment and safety. Be sure to make and go to all appointments, and call your doctor if you are having problems. It's also a good idea to know your test resultsand keep a list of the medicines you take. Where can you learn more? Log into your personal health record on https://[employer] and enter H674 in the Education box to learn more about Hip Bursitis: Exercises. Current as of: August 30, 2019 Content Version: 12.7 [employer] Care instructions adapted under license by your healthcare professional. If you have questions about a medical condition or this instruction, always ask your healthcare professional. [employer] disclaims any warranty or liability for your use of this information. documented in this encounter Discharge Instructions * Attachments The following attachments cannot be sent through Care Everywhere. * : Back Pain (Kittitian) * : Dealing With Back Pain: Video (Kittitian) documented in this encounter Additional Source Comments INFORMATION SOURCE (unrecogn ized section and content) DATE CREATED AUTHOR 12/19/2017 [facility] DATE CREATED AUTHOR AUTHOR'S ORGANIZ ATION 12/17/2020 [facility] DATE CREATED AUTHOR AUTHOR'S ORGANIZ ATION 07/25/2021 [facility] DATE CREATED AUTHOR AUTHOR'S ORGANIZ ATION 02/22/2022 [facility] DATE CREATED AUTHOR AUTHOR'S ORGANIZ ATION 04/21/2022 [facility] DATE CREATED AUTHOR AUTHOR'S ORGANIZ ATION 12/24/2023 [facility] DATE CREATED AUTHOR AUTHOR'S ORGANIZ ATION 08/20/2024 [facility] EPIC Reason for Visit (unrecogniz ed section and content) Reason Comments Physical Therapy Status Reason Specialty Diagnoses / Procedures Referred By Contact Referred To Contact Authorized Rehabilitation Diagnoses Left hip pain Trochanteric bursitis of left hip Fabiana Pacheco CNP [facility] [address] [place] [address] Op Physical Therapy [address] [place] [address] Status Reason Specialty Diagnoses / Procedures Referred By Contact Referred To Contact Closed Sports Medicine Diagnoses Left hip pain Bernarda Crowell MD [address] [facility] [address] [place] [address] Fabiana Pacheco CNP [address] [facility] [address] [place] [address] Reason Comments Abdominal Pain Reason Comments Rupture of Membranes Reason Comments Rupture of Membranes Covid + Reason Comments Weight Management Reason Comments Follow-up Pt present today for a Ozempic follow up visit. Quick Note - Pratima Kitchen RN - 10/11/2020 3:10 PM EDTL&D Delivery Note - Zenaida Liz, - 10/11/2020 1:43 PM EDT Miscellaneous Notes (unrecog nized section and content) Pt given discharge instructions and is dressed and reported she feels that her back pain is worse 6 from a 4 and her abd pain remains a 4. Dr Liz called and Flexeril ordered at [facility] in [place] and teaching with patient about tylenol, heat, ice and using Flexeril as needed. She will call us back if her pain does not improve, gets worse or she has any questions. This is a triage note on Brandt Vaca is a 24-year-old 1 para 0 with an DMITRI of 12/04/2020 making her 30-2/7 weeks. She is seen with a complaint of lower abdominal pains which are an intermittent and crampy compared to menstrual pains rating them at 4-5 on a 10 scale. She also states she is leaking a small amount of fluid clear in color not enough to pass through her underwear to any clothing. She denies any bleeding or unusual discharge of any other variety in the preceding days. On arrival she is ambulatory and here with her grandmother she is anxious but no acute distress. She is taken to the exam room placed on dorsolithotomy position into [facility] and a speculum exam was performed for purposes of documenting whether or not her she is leaking amniotic fluid. Visually the cervix is closed there is a small amount of yellow mucousy discharge present. With Valsalva there is no leaking of fluid. A swab is obtained for pH and fern studies. And fibronectin and group B strep were obtained to hold should the patient progressed into obvious labor. Should this not happen those 2 swabs will be discarded. The monitor shows reassuring heart tracing with a baseline of 130s with accelerations present moderate variability and no decelerations. There are no contractions at this time ROS patient denies any nausea vomiting constipation or diarrhea urinary urgency or dysuria and the baby has been moving well. . Physical exam the patient as noted is ambulatory and anxious but no acute distress VS the blood pressure 137/74 heart rate 95 temperature 98.0 Covid symptoms are all negative and swab was deferred. HEENT the face is symmetric SKIN is warm and dry with no lesions or ecchymoses NEURO the patient is conversant and appropriate HEART is regular rate and rhythm LUNGS are clear to auscultation ADOMEN is soft appropriately sized for her gestational age and nontender to palpation EXT negative for any calf tenderness trace edema is noted. PELVIC external genitalia appear normal with no lesion the labia are dry. DIGITAL CERVICAL EXAM WAS DEFERRED SPECULUM exam reveals a physiologic appearing discharge no cervical lesion and no pooling of fluid blood or other unusual discharge NITRAZINE test revealed normal vaginal pH (the paper did not turn blue) FERN TEST (examination of the air dried swab on a glass slide under low power on the Microscope) from the posterior fornix reveals epithelial cells only with no ferning present. IMPRESSION this is a 30-2/7weeks primigravida to rule out ruptured membranes which is negative on this work-up PLAN is to monitor for an hour should contractions develop or she has any additional fluid leaking we will reevaluate otherwise she will be being discharged to home. Nola will be advised to follow-up back to labor and delivery should her symptoms change if she has any concerns about labor or her baby otherwise to keep her next routine scheduled appointment in the office which should be within the next week or two as scheduled documented in this encounter Scheduled Active and Recently Administ ered Medications (unrecognized section and content) Medication Order 11/22/2020 11/23/2020 11/24/2020 ampicillin 1000 mg in sodium chloride (NS) 0.9% 100 mL MBP 1,000 mg, Intravenous, Administer over 30 Minutes, Every 4 hours, First dose on Fri11/24/20 at 2345, Indication: Other (specify), Indication: Group B Strep prophylaxis ampicillin 2000 mg in sodium chloride (NS) 0.9% 100 mL MBP (COMPLETED) 2,000 mg, Intravenous, Administer over 30 Minutes, Once, On Fri11/24/20 at 1945, For 1 dose, Indication: Other (specify), Indication: Group B Strep prophylaxis 1899 (New Bag - Prov ider: Virgie Levy RN) Continuous Medication Order 11/22/2020 11/23/2020 11/24/2020 lactated Ringers infusion 125 mL/hr, Intravenous, Continuous, Starting on Fri11/24/20 at 1930 1858 (New Bag - Prov ider: Virgie Levy, KRUPA) PRN Medication Order 11/22/2020 11/23/2020 11/24/2020 nalbuphine (NUBAIN) injection 5 mg 5 mg, Intravenous, Every 3 hours PRN, pain, Starting on Fri11/24/20 at 2223 2240 (Given - Provid er: Virgie Levy RN) Scheduled Medication Order 11/25/2020 11/26/2020 11/27/2020 ceFAZolin (ANCEF) IVPB 2 g (premix) (COMPLETED) 2,000 mg, Intravenous, at 200 mL/hr, Once, On 11/25/20 at 1545, For 1 dose, Indication: Other (specify), Indication: 4th degree lac 1450 (New Bag - Provider: January Friedman RN) docusate sodium (COLACE) capsule 100 mg 100 mg, Oral, 2 times daily, First dose on 11/25/20 at 2130, , Hold for loose stools DO NOT CRUSH OR CHEW. 2130 (Not Given - Provider: Charlene Paris RN - Reason: Other - Comment: already got) 0900 (Due)2058 (Given - Provider: Ilana Mendez RN) 0810 (Given - Provider: Elizabeth Contreras RN) HYDROmorphone (DILAUDID) injection 1 mg (COMPLETED) 1 mg, Intravenous, Once, On 11/25/20 at 1545, For 1 dose 1455 (Given - Provider: January Friedman RN) ibuprofen (ADVIL,MOTRIN) tablet 600 mg 600 mg, Oral, Every 6 hours scheduled, First dose (after last modification) on 11/26/20 at 0045, , Give with food. Do Not Crush or Chew if administering orally due to bitter taste. May be crushed if given via tube. 0047 (Given - Provider: Charlene Paris RN)0542 (Given - Provider: Charlene Paris RN)1220 (Given - Provider: Araceli Al RN)1757 (Given - Provider: Araceli Servando, RN)2343 (Given - Provider: Ilana Mendez RN) 0557 (Given - Provider: Ilana Mendez RN)1126 (Given - Provider: Elizabeth Contreras RN)1719 (Given - Provider: Charley Correa RN) oxyCODONE (ROXICODONE) immediate release tablet 5 mg (COMPLETED) 5 mg, Oral, Once, On 11/26/20 at 0800, For 1 dose 1002 (Given - Provider: Camila Stephenson RN) oxyCODONE (ROXICODONE) immediate release tablet 5 mg (COMPLETED) 5 mg, Oral, Once, On 11/26/20 at 2345, For 1 dose 2343 (Given - Provider: Ilana Mendez RN) penicillin G potassium 3 million unit/50 mL IVPB 3 Million Units (COMPLETED) 3 Million Units, Intravenous, at 200 mL/hr, Once, On 11/25/20 at 0230, For 1 dose, L&D Pre-Delivery, This is the FIRST of TWO doses of 3 Million Units, each over 15 minutes, for a TOTAL loading dose of 6 Million Units., Indication: GBS Prophylaxis 0137 (New Bag - Provider: Abby Sargent RN) penicillin G potassium 3 million unit/50 mL IVPB 3 Million Units (COMPLETED) 3 Million Units, Intravenous, at 200 mL/hr, Once, On 11/25/20 at 0245, For 1 dose, L&D Pre-Delivery, This is the SECOND of TWO doses of 3 Million Units, each over 15 minutes, for a TOTAL loading dose of 6 Million Units., Indication: GBS Prophylaxis 0231 (New Bag - Provider: Abby Sargent RN) penicillin G potassium 3 million unit/50 mL IVPB 3 Million Units (CANCELED) 3 Million Units, Intravenous, at 200 mL/hr, Every 4 hours, First dose on 11/25/20 at 0630, L&D Pre-Delivery, Rate may be slowed to infuse over 30 minutes if patient experiences pain with administration over 15 minutes. Discontinue upon delivery., Indication: GBS Prophylaxis 0639 (New Bag - Provider: Abby Sargent RN)1036 (New Bag - Provider: Margaret Tran RN)1430 (Due) polyethylene glycol (MIRALAX) powder 17 g 17 g, Oral, Daily, First dose on 11/26/20 at 0900, 0900 (Due) 0900 (Not Given - Provider: Elizabeth Contreras RN - Reason: Patient/family refused) Continuous Medication Order 11/25/2020 11/26/2020 11/27/2020 lactated Ringers infusion (CANCELED) 0-999 mL/hr, Intravenous, Continuous, Starting on 11/25/20 at 0230, L&D Pre-Delivery, Run @ 125 mL/hr or as follows: For stress, uterine tachysystole, non-reassuring status during induction or cervical-ripening, increase maintenance IV to 999 mL/hr. Upon resolution of tachysystole, or return to category 2 or above monitor strip, resume IV at previous rate. 0230 (New Bag - Provider: Abby Sargent RN) oxytocin in lactated ringers (PITOCIN) 20 unit/1,000 mL infusion (CANCELED) Intravenous, at 0-60 mL/hr, Continuous, Starting on 11/25/20 at 1030, L&D Pre-Delivery, Nurse to increase or decrease based on assessment of uterine and response, until effective labor is established. Labor is defined as uterine contractions every 3-5 minutes resulting in cervical change (dilations and/or effacement) not to exceed 5 contractions in 10 minutes averaged over a 30 minute time frame. Do not exceed maximum rate of 20 connie-units/minute without provider evaluation of tracing. If the infusion has been discontinued for LESS than 30 minutes and the FHR pattern has improved and uterine activity has returned to normal, oxytocin may be restarted at no more than one half of the rate when oxytocin was discontinued. If the infusion has been discontinued for MORE than 30 minutes and the FHR pattern has improved and uterine activity has returned to normal, oxytocin may be restarted at the Start drip at rate as specified on the original order. CATEGORY B HAZARDOUS DRUG use safe handling precautions. Use reference link to view PPE guidelines. Safe handling precautions only required when in the third trimester. EMERGENCY Haz Drug use professional judgement when deviating from standard handling precautions., Start drip at: 2 connie-units/min, May titrate drip by increments of: 2 connie-units/min, Titrate every (minutes): 30, Maximum rate (Milliunits/min): 0946 (New Bag - Provider: Margaret Tran RN) PRN Medication Order 11/25/2020 11/26/2020 11/27/2020 acetaminophen (TYLENOL) tablet 650 mg 650 mg, Oral, Every 4 hours PRN, mild pain, Starting on 11/25/20 at 2035, 2146 (Given - Provider: Charlene Paris RN) 0726 (Due) aluminum-magnesium hydroxide-simethicone (MAALOX PLUS) 200-200-20 mg/5 mL suspension 30 mL 30 mL, Oral, Every 4 hours PRN, indigestion, Starting on 11/25/20 at 2035, diphenhydrAMINE (BENADRYL) injection 25 mg(Linked Group 1) 25 mg, Intravenous, Every 6 hours PRN, itching, Starting on 11/25/20 at 2035, , Use oral route first, if tolerated. For IV administration, give at a rate less than or equal to 25 mg/min diphenhydrAMINE (BENADRYL) tablet 25 mg(Linked Group 1) 25 mg, Oral, Every 6 hours PRN, itching, Starting on 11/25/20 at 2035, , Use oral route first, if tolerated. diptheria, tetanus toxoid, acellular pertusssis (ADACEL) injection 0.5 mL 0.5 mL, Intramuscular, Prior To Discharge, Based on vaccine assessment, Starting on 11/25/20 at 5, For 1 dose, , If not previously vaccinated for pertussis. Complete Vaccine Assessments. If indicated, administer prior to discharge. Provide CDC vaccine information sheet(s) (VIS) for patient for vaccines administered. Tip cap contains LATEX. Use caution when handling if you have a latex allergy. Okay to administer to patient with latex allergy docusate sodium (COLACE) capsule 100 mg 100 mg, Oral, 2 times daily PRN, constipation, Starting on 11/25/20 at 2035, , Hold for loose stools DO NOT CRUSH OR CHEW. 2145 (Given - Provider: Charlene Paris RN) 1001 (Given - Provider: Camila Stephenson RN) ibuprofen (ADVIL,MOTRIN) tablet 800 mg (COMPLETED) 800 mg, Oral, Once as needed, mild pain, Starting on 11/25/20 at 0131, For 1 dose, Labor & Delivery, Give with food. DO NOT GIVE WITH TORADOL Do Not Crush or Chew if administering orally due to bitter taste. May be crushed if given via tube. 1553 (Given - Provider: January Friedman, RN) measles, mumps and rubella vaccine (MMR) 1,000-12,500 TCID50/0.5 mL injection 0.5 mL 0.5 mL, Subcutaneous, Prior To Discharge, administer vaccine prior to discharge, Based on vaccine assessment, Starting on 11/25/20 at 203, For 1 dose, , If indicated and not previously vaccinated. Complete Vaccine Assessments. If indicated, administer prior to discharge. Provide [facility] vaccine information sheet(s) (VIS) for patient for vaccines administered. nalbuphine (NUBAIN) injection 10 mg (CANCELED) 10 mg, Intravenous, Every 3 hours PRN, moderate to severe pain, Starting on 11/25/20 at 0134 0139 (Given - Provider: Abby Sargent RN) naloxone (NARCAN) injection 0.1 mg(Linked Group 2) 0.1 mg, Intravenous, As needed, opioid reversal, For respiratory rate less than or equal to 8 per minute., Starting on 11/26/20 at 0700, Mix nalOXone (NARCAN) 0.4 mg (1ml) with 9 mL of Normal Saline to total 10 mL. Administer 0.1 mg (2.5ml) IV Push every 2 minutes until respiratory rate is 10 or greater. naloxone (NARCAN) injection 0.4 mg(Linked Group 2) 0.4 mg, Intravenous, As needed, opioid reversal, patient is pulseless, breathless, and unresponsive, Starting on 11/26/20 at 0700, Call a code first, then administer naloxone dose undiluted IV Push over 30 seconds. rho(d) immune globulin (RHOPHYLAC) injection 300 mcg(Linked Group 3) 300 mcg, Intramuscular, Once as needed, IF patient is Rh Negative - administer if indicated (per lab), Starting on 11/25/20 at 203, For 1 dose, , Use IV route, if available. rho(d) immune globulin (RHOPHYLAC) injection 300 mcg(Linked Group 3) 300 mcg, Intravenous, Once as needed, IF patient is Rh Negative - administer if indicated (per lab), Starting on 11/25/20 at 2034, For 1 dose, , Use IV route, if available. Do not give with other IV medications. simethicone (MYLICON) chewable tablet 80 mg 80 mg, Oral, After meals as needed, flatulence, gas discomfort, Starting on 11/25/20 at 2034, sodium chloride 0.9% (NS) 0-150 mL/hr, Intravenous, As needed, To flush line after IV infusions when no maintenance IV ordered or a compatibility issue. Infuse 20ml at the same rate as the secondary infusion, Starting on 11/25/20 at 2034, L&D Post-Delivery, Run as Primary IV. NOT intended for KVO. varicella virus vacc live (PF) (VARIVAX) injection 0.5 mL 0.5 mL, Subcutaneous, Prior To Discharge, administer vaccine prior to discharge, Based on vaccine assessment, Starting on 11/25/20 at 2034, For 1 dose, , If not previously vaccinated. Complete Vaccine Assessments. If indicated, administer prior to discharge. Provide [facility] vaccine information sheet(s) (VIS) for patient for vaccines administered. Linked Groups Order Group 1: diphenhydrAMINE (BENADRYL) tablet 25 mgJump to med 25 mg, Oral, Every 6 hours PRN, itching, Starting on 11/25/20 at 2034,
Use oral route first, if tolerated.
Or diphenhydrAMINE (BENADRYL) injection 25 mgJump to med 25 mg, Intravenous, Every 6 hours PRN, itching, Starting on 11/25/20 at 5,
Use oral route first, if tolerated. For IV administration, give at a rate less than or equal to 25 mg/min
Group 2: naloxone (NARCAN) injection 0.1 mgJump to med 0.1 mg, Intravenous, As needed, opioid reversal, For respiratory rate less than or equal to 8 per minute., Starting on 11/26/20 at 0700
Mix nalOXone (NARCAN) 0.4 mg (1ml) with 9 mL of Normal Saline to total 10 mL. Administer 0.1 mg (2.5ml) IV Push every 2 minutes until respiratory rate is 10 or greater.
And Notify physician (CANCELED) STAT, Until discontinued, Starting on 11/26/20 at 0701, Until Specified
Respiratory rate less than: 8
For respiratory rate less than or equal to 8, notify physician and/or appropriate staff for additional orders. And naloxone (NARCAN) injection 0.4 mgJump to med 0.4 mg, Intravenous, As needed, opioid reversal, patient is pulseless, breathless, and unresponsive, Starting on 11/26/20 at 0700
Call a code first, then administer naloxone dose undiluted IV Push over 30 seconds.
Group 3: rho(d) immune globulin (RHOPHYLAC) injection 300 mcgJump to med 300 mcg, Intramuscular, Once as needed, IF patient is Rh Negative - administer if indicated (per lab), Starting on 11/25/20 at 2034, For 1 dose,
Use IV route, if available.
Or rho(d) immune globulin (RHOPHYLAC) injection 300 mcgJump to med 300 mcg, Intravenous, Once as needed, IF patient is Rh Negative - administer if indicated (per lab), Starting on 11/25/20 at 2034, For 1 dose,
Use IV route, if available. Do not give with other IV medications.
Care Teams (unrecognized sec tion and content) Healthcare Representative Relationship Specialty Start Date End Date Jose Cruz Martinez MD [address] [place] [phone] PCP - General Family Medicine 11/05/22 Ronda Reyes NP [address] [place] [address] PCP - Miranda Atkinson 12/29/23 Healthcare Representative Relationship Specialty Start Date End Date Jose Cruz Martinez MD [address] [place] [phone] (Fax) PCP - General Family Medicine 11/05/22 Ronda Reyes NP [address] [place] [address] PCP - [employer] 12/29/23 Healthcare Representative Relationship Specialty Start Date End Date Jose Cruz Martinez MD [address] [phone] (Fax) PCP - General Family Medicine 11/05/22 Ronda Reyes NP [address] [place] [address] PCP - [employer] 12/29/23 Healthcare Representative Relationship Specialty Start Date End Date Jose Cruz Martinez MD [address] [place] [phone] (Fax) PCP - General Family Medicine 11/05/22 Ronda Reyes NP [address] [place] [address] PCP - [employer] 12/29/23 Healthcare Representative Relationship Specialty Start Date End Date Jose Cruz Martinez MD [address] [place] [phone] (Fax) PCP - General Family Medicine 11/05/22 Ronda Reyes NP [address] [place] [address] PCP - [employer] 12/29/23 Healthcare Representative Relationship Specialty Start Date End Date Jose Cruz Martinez MD [address] [address] PCP - General Family Medicine 11/05/22 Ronda Reyes NP [address] [place] [address] [facility] Healthcare Representative Relationship Specialty Start Date End Date Jose Cruz Martinez MD [address] [address] PCP - General Family Medicine 11/05/22 FOR RECORDS PERTAINING TO PATIENTS WHO ARE OR HAVE BEEN ENROLLED IN A CHEMICAL DEPENDENCY/SUBSTANCEABUSE PROGRAM, SOME INFORMATION MAY BE OMITTED. This clinical summary was aggregated from multiple sources. Caution should be exercised in using it in the provision of clinical care. This summary normalizes information from multiple sources, and as a consequence, information in this document may materially change the coding, format and clinical context of patient data. In addition, data may be omitted in some cases. CLINICAL DECISIONS SHOULD BE BASED ON THE PRIMARY CLINICAL RECORDS. [employer] provides no warranty or guarantee of the accuracy or completeness of information in this document.
[2024-12-03 10:09] LABS: Age Gdln ACOG Testing Note (.); HPV Aptima Negative (Negative); IGP, Aptima HPV, rfx 16/18,45 Note (.)
== END 2024-11-29 20:16 | disposition home or self-care (01) ==
LOC: LAB 20:15
PROVIDERS: Visit Provider Physician Assistant
DX: Z01.419 Encounter for gynecological examination (general) (routine) without abnormal findings (principal)
CPT/HCPCS: 87624; 88175

== ENCOUNTER 2024-12-03 11:53 | Emergency (ER) | payer BC, SELFPAY ==
--- OUTSIDE RECORDS SUMMARY | 2024-11-29 15:00 | XMS_ITS | Encounter Summary ---
Author Organization [facility] Address [address] [place] [address] Care Team Providers Care Mold Press Operator Name Role Phone Jose Cruz Marquez MD Primary Care Provider Reason for Visit * Reason Comments Well Women Visit Encounter Details Date Type Department Care Team (Late st Contact Info) Description 11/29/2024 3:00 PM EDT Office Visit [facility] [address] [place] [id number] Una John PA [address] [place], [facility] Well woman exam with routine gynecological exam; Breast lump on right side at 3 o'clock position Social History Tobacco Use Types Packs/Day Years Used Date Smoking Tobacco: Never Alcohol Use Standard Drinks/Week Comments Yes 0 (1 standard drink = 0.6 oz pure alcohol) 1 or 2 drinks on a typical day/monthly or less AUDIT-C Answer Date Recorded Q1: How often do you have a drink containing alc ohol? Monthly or less 2023 Q2: How many drinks containi ng alcohol do you have on a typical day when you are drinking? 1 or 2 2023 Q3: How often do you have si x or more drinks on one occasion? Never 2023 Comments No Sex and Gender Information Value Date Recorded Sex Assigned at Not on file Legal Sex Female 7:41 PM EDT Gender Identity Not on file Sexual Orientation Not on file Occupation Industry Job Start Date Job End Date [employer] Not on file Not on file Not on file documented as of this encounter Last Filed Vital Signs Vital Sign Reading Time Taken Comments Blood Pressure 116/80 11/29/2024 3:44 PM EDT Pulse - - Temperature - - Respiratory Rate - - Oxygen Saturation - - Inhaled Oxygen Concentration - - Weight 93 kg (205 lb) 11/29/2024 3:44 PM EDT Height - - Body Mass Index 40.04 10/22/2022 12:00 PM EDT documented in this encounter Progress Notes * GREG Dodson - 11/29/2024 3:00 PM EDT Reason for Appointment: Patient ID: Diana Peres is a 34 y.o. female who presents for [facility] Women Visit Patient presents today for Annual Exam. MEDICATIONS Current Outpatient Medications Medication Instructions Ozempic (1 MG/DOSE) 1 mg, Subcutaneous, Weekly Ozempic (1 MG/DOSE) 1 mg, Subcutaneous, Weekly semaglutide (Ozempic) 2 MG/1.5ML solution pen-injector FIRST MONTH inject 0.25 mg under the skin once weekly; then SECOND MONTH inject 0.5 mg under the skin 1 (one) time per week for 4 doses. ALLERGIES No Known Allergies PROBLEMS Active Ambulatory Problems Diagnosis Date Noted Non morbid obesity due to excess calories 01/28/2024 Preeclampsia 11/29/2020 Metabolic disorder, unspecified 10/13/2024 Resolved Ambulatory Problems Diagnosis Date Noted No Resolved Ambulatory Problems Past Medical History: Diagnosis Date Body mass index (BMI) 39.0-39.9, adult Family history of cancer History of medical problems HISTORY PAST MEDICAL HISTORY SOCIAL HISTORY Past Medical History: Diagnosis Date Body mass index (BMI) 39.0-39.9, adult Family history of cancer History of medical problems pre-eclampsia with hypertension Social History Tobacco Use Smoking status: Never Smokeless tobacco: Not on file Substance Use Topics Alcohol use: Yes Comment: 1 or 2 drinks on a typical day/monthly or less Drug use: Never FAMILY HISTORY Family History Problem Relation Name Age of Onset Other (Bile Duct Cancer) Mother No Known Problems Sister No Known Problems Brother 3 brothers, healthy Heart disease Maternal Grandfather Heart disease Mother's Brother Heart attack Mother's Brother 32 No Known Problems Daughter Breast cancer Maternal Great-Grandmother Colon cancer Neg Hx Ovarian cancer Neg Hx SURGICAL HISTORY Past Surgical History: Procedure Laterality Date HIP SURGERY Left 1997 ball socket DE LAP,CHOLECYSTECTOMY 05/29/2021 REVIEW OF SYSTEMS Review of Systems: Review of Systems All other systems reviewed and are negative. OBJECTIVE Objective: Physical Exam Constitutional: Appearance: Normal appearance. She is well-developed. Genitourinary: Vulva normal. Right Adnexa: not tender and no mass present. Left Adnexa: not tender and no mass present. No cervical discharge. Breasts: Breasts are soft. Right: Normal. Left: Normal. HENT: Head: Normocephalic. Nose: Nose normal. Mouth/Throat: Mouth: Mucous membranes are moist. Cardiovascular: Rate and Rhythm: Normal rate and regular rhythm. Pulmonary: Effort: Pulmonary effort is normal. Breath sounds: Normal breath sounds. Abdominal: General: Bowel sounds are normal. There is no distension. Palpations: Abdomen is soft. Tenderness: There is no abdominal tenderness. There is no guarding or rebound. Musculoskeletal: General: No swelling. Normal range of motion. Cervical back: Normal range of motion. Right lower leg: No edema. Left lower leg: No edema. Neurological: General: No focal deficit present. Mental Status: She is alert and oriented to person, place, and time. Skin: General: Skin is warm and dry. Psychiatric: Mood and Affect: Mood normal. Behavior: Behavior normal. Vitals and nursing note reviewed. Exam conducted with a bedspread folder present. Vitals: Estimated body mass index is 40.04 kg/m?? as calculated from the following: Height as of 10/22/22: 5'. Weight as of this encounter: 205 lb. BP: 116/80 Patient's last menstrual period was 10/16/2024 (approximate). ASSESSMENT & PLAN ICD-10-CM 1. Well woman exam with routine gynecological exam Z01.419 Pap Smear HPV DNA probe, amplified POCT urinalysis dipstick manually resulted Annual Exam: Patient presents today for an annual exam. Patient states she is doing well and has no complaints. Pap was obtained without difficulty. Orders Placed This Encounter Procedures HPV DNA probe, amplified Bilateral diagnostic mammogram POCT urinalysis dipstick manually resulted Follow Up: Patient is to return in one year for annual unless needed otherwise. Documented by Ronda Pond LPN on behalf of: GREG Dodson documented in this encounter Plan of Treatment Scheduled Orders Name Type Priority Associated Diagnoses Orde r Schedule Pap Smear Pathology and Cytology Routine Well woman exam with routine gynecological exam Ordered: 11/29/2024 HPV DNA probe, amplified Microbiology Routine Well woman exam with routine gynecological exam Ordered: 11/29/2024 Bilateral diagnostic mammogram Imaging Routine Breast lump on right side at 3 o'clock position Expected: 11/29/2024 (Approximate), Expires: 01/29/2026 documented as of this encounter Procedures Procedure Name Priority Date/Time Associated Diagnosis Comments POCT URINALYSIS DIPSTICK Routine 11/29/2024 3:52 PM EDT Well woman exam with routine gynecological exam documented in this encounter Results * (ABNORMAL) POCT urinalysis dipstick manually resulted (11/29/2024 3:52 PM EDT) Color, UA Yellow Clarity, UA Clear Glucose, UA Negative Negative - 2000(110) ++++ mg/dL Bilirubin, UA Negative Negative - 4(70) +++ mg/dL Ketones, UA Negative Negative - 160(16) ++++ mg/dL Spec Grav, UA 1.020 1 - 1.03 Blood, UA Negative Negative - 50 Gael/mcL pH, UA 6.0 5 - 9 Protein, UA Negative Negative - 2000(20) ++++ mg/dL Urobilinogen, UA 0.2 0.2 - 12 mg/dL Leukocytes, UA Trace Negative - 500+++ Jorge/mcL Nitrite, UA Negative Negative - Positive Urine 11/29/2024 3:52 PM EDT Una GARZA POINT OF CARE TEST ENTER/EDIT OR DERABLES Final Result documented in this encounter Visit Diagnoses Diagnosis Well woman exam with routine gynecological exam Routine gynecological examination Breast lump on right side at 3 o'clock position Lump or mass in breast documented in this encounter Care Teams Mold Press Operator Relationship Specialty Start Date End Date Jose Cruz Marquez MD [address] [address] PCP - General Family Medicine 11/05/22 documented as of this encounter
[2024-12-03 11:58] VITALS: BP 130/98; PULSE 72; TEMP 36.8; O2SAT 97; BMI 37.8
--- OUTSIDE RECORDS SUMMARY | 2024-12-03 11:59 | XMS_ITS | Encounter Summary ---
Author Organization [facility] Address [address] [place] [address] Care Team Providers Care Rock Wool Applicator Name Role Phone Jose Cruz Marquez MD Unavailable [phone] Jose Cruz Marquez MD Primary Care Provider + [phone] Ronda Reyes NP Unavailable [phone] Encounter Details Date Type Department Care Team (Late st Contact Info) Description 04/18/2023 Clinisync Result Encounter [facility] External Department Unsolicited Shay Vaughn, DO [address] [facility] [place] [address] Social History Tobacco Use Types Packs/Day Years Used Date Smoking Tobacco: Never Alcohol Use Standard Drinks/Week Comments Yes 0 (1 standard drink = 0.6 oz pure alcohol) 1 or 2 drinks on a typical day/monthly or less Comments Unknown Sex and Gender Information Value Date Recorded Sex Assigned at Not on file Legal Sex Female 7:41 PM EDT Gender Identity Not on file Sexual Orientation Not on file Occupation Industry Job Start Date Job End Date [employer] Not on file Not on file Not on file documented as of this encounter Plan of Treatment Not on file documented as of this encounter Procedures Procedure Name Priority Date/Time Associated Diagnosis Comments MM TOMOSYNTHESIS DIAGNOSTIC BI 04/18/2023 2:57 PM EDT documented in this encounter Results * MM TOMOSYNTHESIS DIAGNOSTIC BI (04/18/2023 2:57 PM EDT) Anatomical Region Laterality Modality Other 04/18/2023 2:57 PM EDT Narrative 04/18/2023 2:57 PM EDT The [address] [address] Mammography Report Signed Patient: BRANDT OSORIO MR#: [id number] : 1990 Acct:[id number] Age/Sex: 32 / F ADM Date: 04/18/23 Loc: MAMMO Attending Dr: Shay Vaughn D.O. Ordering Physician: Shay Vaughn D.O. Results: Date of Service: 04/18/23 Follow Up: Procedure(s): MM tomosynthesis diagnostic BI Accession Number(s): [id number] cc: Shay Vaughn D.O.; Physician,Non-Staff Jayson Patient: BRANDT OSORIO. Exam Date: 04/18/2023 : 1990 Gender:F Ordering : DR Shay Vaughn . Admission #: [id number] Family : Non-Staff Physician Order #: [id number] CLICK HERE TO VIEW EXAM RADIOLOGY REPORT PROCEDURE: MM TOMOSYNTHESIS DIAGNOSTIC BI, 04/18/2023, 14:11 US BREAST RT LIMITED, 04/18/2023, 14:35 COMPARISON: None. INDICATIONS: Breast Lump N63.15 Calculator Name NCI Breast Cancer Risk Assessment Tool 5 Year Breast Cancer Risk Not Applicable. Lifetime Breast Cancer Risk Not Applicable. Personal Breast Cancer No Personal Ovarian Cancer No Treatments None Family Cancers Mother with bile duct cancer at age 48; Grandfather-paternal with lung cancer at age 68. LOCATION: The [facility] BREAST COMPOSITION: Scattered areas fibroglandular density. FINDINGS: DIAGNOSTIC CATEGORY 2--BENIGN FINDING: Scattered benign-appearing lymph nodes are present. RIGHT BREAST: No significant suspicious finding. Ballico marker indicates a palpable mass lower inner quadrant. No mammographic or ultrasound abnormality. Further evaluation should be based on clinical and physical exam LEFT BREAST: No significant suspicious finding. RECOMMENDATIONS: CLINICAL EVALUATION. PLEASE NOTE: A NORMAL MAMMOGRAM DOES NOT EXCLUDE THE POSSIBILITY OF BREAST CANCER. A CLINICALLY SUSPICIOUS PALPABLE LUMP SHOULD BE BIOPSIED. Dictated by: Nakul Silvestre MD on 04/18/2023 at 14:55 Approved by: Nakul Silvestre MD on 04/18/2023 at 14:57 Dictated By: Nakul Silvestre M.D. Signed By: 04/18/231457 DD/ 56 TD/TT: County Bailiff: Procedure Note Radiology, Radiologist, MD - 04/18/2023 [place] [address] Mammography Report Signed Patient: BRANDT OSORIO LMR#: [id number] : 1990Acct:[id number] Age/Sex: 32 / FADM Date: 04/18/23 Loc: MAMMO Attending Dr: Shay Vaughn D.O. Ordering Physician: Shay Vaughn D.O.Results: Date of Service: 04/18/23Follow Up: Procedure(s): MM tomosynthesis diagnostic BI Accession Number(s): [id number] cc: Shay Vaughn D.O.; Physician,Non-Staff Jayson Patient: BRANDT OSORIO Exam Date: 04/18/2023 : 1990 Gender:F Ordering : DR Shay Vaughn . Admission #: [id number] Family : Non-Staff Physician Order #: [id number] CLICK HERE TO VIEW EXAM RADIOLOGY REPORT PROCEDURE: MM TOMOSYNTHESIS DIAGNOSTIC BI, 04/18/2023, 14:11 US BREAST RT LIMITED, 04/18/2023, 14:35 COMPARISON: None. INDICATIONS: Breast Lump N63.15 Calculator Name NCI Breast Cancer Risk Assessment Tool 5 Year Breast Cancer Risk Not Applicable. Lifetime Breast Cancer Risk Not Applicable. Personal Breast Cancer No Personal Ovarian Cancer No Treatments None Family Cancers Mother with bile duct cancer at age 48; Grandfather-paternal with lung cancer at age 68. LOCATION: The [facility] BREAST COMPOSITION: Scattered areas fibroglandular density. FINDINGS: DIAGNOSTIC CATEGORY 2--BENIGN FINDING: Scattered benign-appearing lymphnodes are present. RIGHT BREAST: No significant suspicious finding. Ballico markerindicates a palpable mass lower inner quadrant. No mammographic or ultrasound abnormality. Further evaluation should be based on clinical and physicalexam LEFT BREAST: No significant suspicious finding. RECOMMENDATIONS: CLINICAL EVALUATION. PLEASE NOTE: A NORMAL MAMMOGRAM DOES NOT EXCLUDE THE POSSIBILITY OFBREAST CANCER. A CLINICALLY SUSPICIOUS PALPABLE LUMP SHOULD BE BIOPSIED. Dictated by: Nakul Silvestre MD on 04/18/2023 at 14:55 Approved by: Nakul Silvestre MD on 04/18/2023 at 14:57 Dictated By: Nakul Silvestre M.D. Signed By:04/18/23 1458 DD/ 1457 TD/TT: County Bailiff: us Shay Johana DO [facility] Final Result documented in this encounter Visit Diagnoses Not on filedocumented in this encounter Care Teams Rock Wool Applicator Relationship Specialty Start Date End Date Jose Cruz Marquez MD [address] [place] [address] PCP - [facility] [employer] 08/09/22 Jose Cruz Marquez MD [address] [place] [address] PCP - General Family Medicine 11/05/22 Ronda Reyes NP [address] [place] [address] PCP - [facility] [employer] 12/29/23 documented as of this encounter
--- OUTSIDE RECORDS SUMMARY | 2024-12-03 11:59 | XMS_ITS | Encounter Summary ---
Author Organization [facility] Address [address] [place] [address] Care Team Providers Care Clip Wrapper Name Role Phone Jose Cruz Marquez MD Unavailable [phone] Jose Cruz Marquez MD Primary Care Provider [phone] Ronda Reyes NP Unavailable [phone] Encounter Details Date Type Department Care Team (Late st Contact Info) Description 04/10/2023 Clinisync Result Encounter [facility] External Department Unsolicited Lillie Vaughn, DO [address] [facility] [place] [address] Social History Tobacco Use Types Packs/Day Years [...] Procedure Name Priority Date/Time Associated Diagnosis Comments US PELVIS TRANSVAGINAL 04/10/2023 6:46 AM EDT documented in this encounter Results * US PELVIS TRANSVAGINAL (04/10/2023 6:46 AM EDT) Anatomical Region Laterality Modality Other 04/10/2023 6:46 AM EDT Narrative 04/10/2023 6:46 AM EDT The [address] [address] Ultrasound Report Signed Patient: BRANDT OSORIO MR#: [id number] : 1990 Acct:[id number] Age/Sex: 32 / F ADM Date: 04/09/23 Loc: US Attending Dr: Lillie Vaughn D.O. Ordering Physician: Lillie Vaughn D.O. Date of Service: 04/09/23 Procedure(s): US pelvis transvaginal Accession Number(s): [id number] cc: Lillie Vaughn D.O.; Physician,Non-Staff Jayson The [address] [address] Patient Name: BRANDT OSORIO MRN: [id number] date: 1990 Sex: F Assigned Patient Location: US Current Patient Location: Accession/Order Number: [id number] Exam Date: 04/09/2023 18:30 Report Date: 04/10/2023 06:46 At the request of: LILLIE VAUGHN Procedure: US pelvis transvaginal EXAMINATION: US pelvis transvaginal HISTORY: Abnormal Uterine Bleeding, N93.9 , amenorrhea COMPARISON: No relevant comparison available. TECHNIQUE: Transabdominal and/or transvaginal sonographic examination was performed as indicated by examination type. FINDINGS: UTERUS: Normal size and appearance. Uterus size: 7.7 x 3.8 x 5.9 cm ENDOMETRIUM: Normal homogeneous appearance. Endometrial thickness: 11 mm RIGHT OVARY: Contains multiple small follicles. Blood flow present within ovary on color Doppler. Ovary size: 2.5 x 3.6 x 2.0 cm LEFT OVARY: Contains multiple small follicles. Duplex Doppler demonstrates normal waveform and flow; resistive index 0.6. Ovary size: 2.7 x 2.3 x 1.8 cm CUL-DE-SAC: Unremarkable. No significant free fluid. BLADDER: Unremarkable. OTHER: None. US/US pelvis transvaginal IMPRESSION: 1. Normal appearance of the uterus and endometrium. 2. Both ovaries contain multiple small follicles, but do not present the classic appearance for polycystic ovarian syndrome. Electronically authenticated by: AMARJIT MITCHELL Date: 04/10/2023 06:46 Dictated By: Amarjit Mitchell M.D. Signed By: 04/10/2348 DD/ 5 TD/TT: Lay Out And Detail Drafter: Procedure Note Radiology, Radiologist, MD - 04/10/2023 [place] [address] Ultrasound Report Signed Patient: BRANDT OSORIO LMR#: [id number] : 1990Acct:[id number] Age/Sex: 32 / FADM Date: 04/09/23 Loc: US Attending Dr: Lillie Vaughn D.O. Ordering Physician: Lillie Vaughn D.O. Date of Service: 04/09/23 Procedure(s): US pelvis transvaginal Accession Number(s): [id number] cc: Lillie Vaughn D.O.; Physician,Non-Staff Jayson The [place] [id number] Patient Name: BRANDT OSORIO MRN: [id number] date: 1990 Sex: F Assigned Patient Location: US Current Patient Location: Accession/Order Number: [id number] Exam Date: 04/09/2023 18:30 Report Date: 04/10/2023 06:46 At the request of: LILLIE VAUGHN Procedure: US pelvis transvaginal EXAMINATION: US pelvis transvaginal HISTORY: Abnormal Uterine Bleeding, N93.9 , amenorrhea COMPARISON: No relevant comparison available. TECHNIQUE: Transabdominal and/or transvaginal sonographic examination was performed as indicated by examination type. FINDINGS: UTERUS: Normal size and appearance. Uterus size: 7.7 x 3.8 x 5.9 cm ENDOMETRIUM: Normal homogeneous appearance. Endometrial thickness: 11 mm RIGHT OVARY: Contains multiple small follicles. Blood flow present within ovary on color Doppler. Ovary size: 2.5 x 3.6 x 2.0 cm LEFT OVARY: Contains multiple small follicles. Duplex Doppler demonstrates normal waveform and flow; resistive index 0.6. Ovary size: 2.7 x 2.3 x 1.8cm CUL-DE-SAC: Unremarkable. No significant free fluid. BLADDER: Unremarkable. OTHER: None. US/US pelvis transvaginal IMPRESSION: 1. Normal appearance of the uterus and endometrium. 2. Both ovaries contain multiple small follicles, but do not present the classic appearance for polycystic ovarian syndrome. Electronically authenticated by: AMARJIT MITCHELL Date: 04/10/2023 06:46 Dictated By: Amarjit Mitchell M.D. Signed By:04/10/23647 DD/ 5 TD/TT: Lay Out And Detail Drafter: us Lillie Johana DO [facility] Final Result documented in this encounter Visit Diagnoses Not on filedocumented in this encounter Care Teams Clip Wrapper Relationship Specialty Start Date End Date Jose Cruz Marquez MD [address] [facility] [address] [place] [address] PCP - [facility] [employer] 08/09/22 Jose Cruz Marquez MD [address] [address] PCP - General Family Medicine 11/05/22 Ronda Reyes NP [address] [place] [address] PCP - [facility] [employer] 12/29/23 documented as of this encounter
--- OUTSIDE RECORDS SUMMARY | 2024-12-03 12:00 | XMS_ITS | Encounter Summary ---
Author Organization [facility] Address [address] [place] [address] Care Team Providers Care Anode Adjuster Name Role Phone Jose Cruz Marquez MD Primary Care Provider [phone] Encounter Details Date Type Department Care Team (Latest Contact Info) Description 11/29/2024 Travel Social History Tobacco Use Types Packs/Day Years [...] on file documented as of this encounter Visit Diagnoses Not on filedocumented in this encounter Care Teams Anode Adjuster Relationship Specialty Start Date End Date Jose Cruz Marquez MD [address] [place] [address] PCP - General Family Medicine 11/05/22 documented as of this encounter
--- OUTSIDE RECORDS SUMMARY | 2024-12-03 12:00 | XMS_ITS | Clinical Summary ---
Author Organization [facility] Address [address] [place] [address] Care Team Providers Care Harness Puller Name Role Phone Jose Cruz Marquez MD Primary Care Provider + [phone] Allergies No known active allergies Medications azithromycin (ZITHROMAX) 250 MG tabletIndicatio ns:Bronchitis Take 2 tabs by mouth on Day 1, then 1 tab by mouth on Days 2-5. 6 tablet 2 Active albuterol sulfate HFA 108 (90 Base) MCG/ACT inhalerIndicati ons:Bronchitis Inhale 1-2 puffs every 6 hrs as needed for wheezing or shortness of breath. 18 g 2 Active predniSONE (DELTASONE) 20 MG tabletIndicatio ns:Bronchitis Take 2 tablets by mouth daily x 5 days. Take with food. 10 tablet 2 Active Active Problems Problem Noted Date Diagnosed Date Preeclampsia 11/29/2020 labor in third trimester without deliver y 11/25/2020 Left hip pain 09/11/2020 Trochanteric bursitis of left hip 09/11/2020 Social History Tobacco Use Types Packs/Day Years Used Date Smoking Tobacco: Never Alcohol Use Standard Drinks/Week Comments No 0 (1 standard drink = 0.6 oz pur e alcohol) Comments No Sex and Gender Information Value Date Recorded Sex Assigned at Not on file Legal Sex Female 4:23 PM EST Gender Identity Not on file Sexual Orientation Not on file Last Filed Vital Signs Vital Sign Reading Time Taken Comments Blood Pressure 145/92 11/22/2021 3:42 PM EDT Pulse 92 11/22/2021 3:42 PM EDT Temperature 37 C (98.6 F) 11/22/2021 3:40 PM EDT Respiratory Rate 18 11/22/2021 3:42 PM EDT Oxygen Saturation 99% 11/22/2021 3:42 PM EDT Inhaled Oxygen Concentration - - Weight 90.7 kg (200 lb) 11/22/2021 3:40 PM EDT Height 154.9 cm (5' 1 ) 11/22/2021 3:40 PM EDT Body Mass Index 37.79 11/22/2021 3:40 PM EDT Plan of Treatment Not on file Insurance [employer] OUT OF STATE Care Teams Harness Puller Relationship Specialty Start Date End Date Jose Cruz Marquez MD PCP - General 11/22/21
--- OUTSIDE RECORDS SUMMARY | 2024-12-03 12:00 | XMS_ITS | Clinical Summary ---
Author Organization [facility] Address [address] [place] [address] Care Team Providers Care High Scaler Name Role Phone Jose Cruz Marquez MD Primary Care Provider Allergies No known active allergies Medications semaglutide (Ozempic) 2 MG/1.5ML solution pen-injectorIndi cations:Encounte r for weight management FIRST MONTH inject 0.25 mg under the skin once weekly; then SECOND MONTH inject 0.5 mg under the skin 1 (one) time per week for 4 doses. 4.5 mL 1 07/21/2024 Active semaglutide (Ozempic, 1 MG/DOSE,) 2 MG/1.5ML solution pen-injectorIndi cations:Follow-u p encounter involving medication Inject 1 mg under the skin 1 (one) time per week 2 each 1 08/18/2024 Active semaglutide (Ozempic, 1 MG/DOSE,) 2 MG/1.5ML solution pen-injectorIndi cations:Metaboli c disorder, unspecified Inject 1 mg under the skin 1 (one) time per week 2 each 3 10/13/2024 Active Active Problems Problem Noted Date Diagnosed Date Metabolic disorder, unspecified 10/13/2024 Non morbid obesity due to excess calories 2023 Preeclampsia 11/29/2020 Encounters Date Type Department Care Team Description 11/29/2024 3:00 PM EDT Office Visit [facility] [address] [place] [id number] Una John PA Well woman exam with routine gynecological exam; Breast lump on right side at 3 o'clock position 11/29/2024 Clinisync Result Encounter [facility] External Department Unsolicited Una John PA 11/29/2024 Bamboo flowsheet [facility] [address] [place] [address] Una John PA 11/29/2024 Travel 10/20/[address] [facility] [address] [place] [address] Bozena Zhou NP 10/13/[address] [facility] [address] [place] [address] Kiana Patel LPN Metabolic disorder, unspecified; Encounter for long-term (current) use of medications 09/08/[address] [facility] [address] [place] [address] Una John PA from Last 3 Months Family History Medical History Relation Name Comments No Known Problems Brother 3 brothers , healthy No Known Problems Daughter Heart disease Maternal Grandfather Breast cancer Maternal Great-Grandmother Bile Duct Cancer Mother Heart attack Mother's Brother Heart disease Mother's Brother No Known Problems Sister Colon cancer Neg Hx Ovarian cancer Neg Hx Relation Name Status Comments Brother Daughter Alive Father Maternal Grandfather Maternal Grandmother Maternal Great-Grandmother Mother Mother's Brother Sister Social History Tobacco Use Types Packs/Day Years Used Date Smoking Tobacco: Never Tobacco Cessation:Counseling Given: Not Answered Alcohol Use Standard Drinks/Week Comments Yes 0 [...] file Not on file Not on file Last Filed Vital Signs Vital Sign Reading Time Taken Comments Blood Pressure 116/80 11/29/2024 3:44 PM EDT Pulse 90 08/01/2024 12:24 PM EST Temperature 36.2 C (97.2 F) 08/01/2024 12:24 PM EST Respiratory Rate - - Oxygen Saturation 97% 08/01/2024 12:24 PM EST Inhaled Oxygen Concentration - - Weight 93 kg (205 lb) 11/29/2024 3:44 PM EDT Height 152.4 cm (5') 10/22/2022 12:00 PM EDT Body Mass Index 40.04 10/22/2022 12:00 PM EDT Plan of Treatment Health Maintenance Due Date Last Done Comments Influenza Vaccine (Season Ended) 2025 HPV/Cotest 01/12/2026 01/12/2021, 08/07/2017 Cervical Cancer Screening 04/02/2026 Pap Smear 04/02/2026 04/02/2023, 12/29, 01/12/2021 Procedures Procedure Name Priority Date/Time Associated Diagnosis Comments POCT URINALYSIS DIPSTICK Routine 11/29/2024 3:52 PM EDT Well woman exam with routine gynecological exam IGP,APTIMA HPV,AGE GDLN Routine 11/29/2024 3:34 PM EDT PAP SMEAR Routine 04/02/2023 12:00 AM EDT from Last 3 Months or Most Recently Relevant to Health Maintenance Results * (ABNORMAL) POCT urinalysis dipstick manually resulted (11/29/2024 3:52 PM EDT) Color, UA Yellow Clarity, UA Clear Glucose, UA Negative Negative - 1999(110) ++++ mg/dL Bilirubin, UA Negative Negative - 4(70) +++ mg/dL Ketones, UA Negative Negative - 160(16) ++++ mg/dL Spec Grav, UA 1.020 1 - 1.03 Blood, UA Negative Negative - 50 Gael/mcL pH, UA 6.0 5 - 9 Protein, UA Negative Negative - 1999(20) ++++ mg/dL Urobilinogen, UA 0.2 0.2 - 12 mg/dL Leukocytes, UA Trace Negative - 500+++ Jorge/mcL Nitrite, UA Negative Negative - Positive Urine 11/29/2024 3:52 PM EDT Una GARZA POINT OF CARE TEST ENTER/EDIT OR DERABLES Final Result * IGP,APTIMA HPV,AGE GDLN (11/29/2024 3:34 PM EDT) AGE GDLN ACOG TESTING Note . [facility] Comment: TESTS RESULT FLAG UNITS REF RANGE LAB Clinician Provided Cytology Information Source.............Cervix;Endocervix No. of containers..01 ThinPrep Vial Age Algo ACOG Lina... 30-65 01 FLAG LEGEND: L-Low Normal,H-High Normal,LL-Alert Low,HH-Alert High <-Panic Low,>-Panic High,A-Abnormal,AA-Critical Abnormal Performed at: 01 =G [address] [address] Angelina [place] MD, IGP, APTIMA HPV, RFX 16/18,45 Note . [facility] Comment: TESTS RESULT FLAG UNITS REF RANGE LAB DIAGNOSIS: 02 NEGATIVE FOR INTRAEPITHELIAL LESION OR MALIGNANCY. Specimen adequacy: 02 Satisfactory for evaluation. No endocervical component is identified. Performed by: 02 Boo Miller Field Handyman ([facility]) . 02 Note: Note 02 The Pap smear is a screening test designed to aid in the detection of premalignant and malignant conditions of the uterine cervix. It is not a diagnostic procedure and should not be used as the sole means of detecting cervical cancer. Both false-positive and false-negative reports do occur. Test Methodology: Note 02 The [employer] Supervisor was unable to read this specimen. Therefore a manual review was performed. FLAG LEGEND: L-Low Normal,H-High Normal,LL-Alert Low,HH-Alert High <-Panic Low,>-Panic High,A-Abnormal,AA-Critical Abnormal Performed at: [address] [place] [address], [place] [address] Angelina [place] MD, HPV Genotype Reflex Note 02 Criteria not met, HPV Genotype not performed. Criteria not met, HPV Genotype not performed. HPV APTIMA Negative Negative [facility] Comment: This nucleic acid amplification test detects fourteen high- risk HPV types (16,18,31,33,35,39,45,51,52,56,58,59,66,68) without differentiation. Performed at: [address], [place] [id number] Comedian: Angelina [place] MD, Phone: [phone] Performed at: [address] [place] [id number] Comedian: Angelina [place] MD, Phone: [phone] 11/29/2024 3:34 PM EDT 11/29/2024 9:38 PM EDT Narrative [facility] - 12/03/2024 10:09 AM EDT BRUSH-SPATULA CERVIX ENDOCERVIX us Una GARZA LAB BLOOD ORDERABLES Final Resul t [facility] TB * Pap Smear (04/02/2023 12:00 AM EDT) Swab Cervical swab / Unknown us [facility] Nurse LAB CYTOLOGY ORDERABLES Final Result EXTERNAL LAB from Last 3 Months or Most Recently Relevant to Health Maintenance Insurance [facility] Care Teams High Scaler Relationship Specialty Start Date End Date Jose Cruz Marquez MD [address] [place] [address] PCP - General Family Medicine 11/05/22
--- OUTSIDE RECORDS SUMMARY | 2024-12-03 12:00 | XMS_ITS | Clinical Summary ---
Author Organization [facility] Address Formerly [facility] [place] [address] Care Team Providers Care Voip Network Technician Name Role Phone Jose Cruz Marquez MD Primary Care Provider [phone] Allergies No known active allergies Medications vitamin with Ca-Iron-FA 27-1 mg Tab Take 1 tablet by mouth daily . Active ferrous sulfate 325 (65 FE) MG tablet Take 325 mg by mouth 2 (two) times a day . Active Active Problems Problem Noted Date Diagnosed Date labor in third trimester without deliver y 11/25/2020 Status post vacuum-assisted vaginal delivery Assessment & Plan (11/27/2020 5:35 AM EDT): 1) Maternal Well Being: Doing Well. Obstetric [...] with Dr. Crowell One week BP check Left hip pain 09/11/2020 Trochanteric bursitis of left hip 09/11/2020 Family History Medical History Relation Comments Diabetes Maternal Grandfather Heart disease Maternal Grandfather Cancer Mother Cancer Paternal Grandfather Relation Status Comments Maternal Grandfather Mother Paternal Grandfather Social History Tobacco Use Types Packs/Day Years Used Date Smoking Tobacco: Never Smokeless Tobacco: Never Alcohol Use Standard Drinks/Week Comments Not Currently 0 (1 standard drink = 0.6 oz pur e alcohol) Comments No Sex and Gender Information Value Date Recorded Sex Assigned at Not on file Legal Sex Female 4:26 AM EDT Gender Identity Female 06/13/2020 11:45 AM EST Sexual Orientation Straight 10/15/2021 2: 21 PM EDT Last Filed Vital Signs Vital Sign Reading Time Taken Comments Blood Pressure 155/96 01/12/2021 1:15 PM EDT Pulse 74 11/27/2020 3:37 PM EDT Temperature 36.3 C (97.4 F) 11/27/2020 3:37 PM EDT Respiratory Rate 16 11/27/2020 3:37 PM EDT Oxygen Saturation 99% 11/27/2020 3:37 PM EDT Inhaled Oxygen Concentration - - Weight 86.6 kg (191 lb) 11/24/2020 4:20 PM EDT S TATED Height 154.9 cm (5' 1 ) 01/12/2021 1:15 PM EDT Body Mass Index 36.09 11/24/2020 4:20 PM EDT Plan of Treatment Health Maintenance Due Date Last Done Comments Tetanus: Every 10yrs 1990 Depression Screening/Follow-Up (PHQ-2/9) 2004 Hepatitis C Screening 2010 COVID-19 Vaccine ( season) 2024 Wellness Visit 04/02/2024 04/02/2023 Influenza Vaccine (Season Ended) 2025 HPV/Cotest 01/12/2026 01/12/2021, 08/07/2017 Cervical Cancer Screening 04/02/2026 Pap Smear 04/02/2026 04/02/2023, 12/29, 01/12/2021, Additional history exists HIV Screening Completed 2020 Pneumococcal Vaccine: Ped or At-Risk Aged Out No longer eligible based on patient's age to complete this topic Procedures Procedure Name Priority Date/Time Associated Diagnosis Comments THINPREP PAP SMEAR Routine 01/12/2021 Encounter for routine follow-up REFLEX ONLY -- HIGH RISK HPV WITH GENOTYPE 16,18 Routine 01/12/2021 Encounter for routine follow-up HIV 1/2 SCREEN (4TH GENERATION) Routine 2020 10:09 AM EST Encounter for supervision of normal first , first trimester from Last 3 Months or Most Recently Relevant to Health Maintenance Results * High Risk HPV with Genotype 16,18 (01/12/2021) HPV 16 Negative Negative 01/17/2021 1:02 PM EDT [facility] HPV 18 Negative Negative 01/17/2021 1:02 PM EDT [facility] HPV, Other HR Types Negative Negative 01/17/2021 1:02 PM EDT [facility] Pap, Liquid Based ENDOCERVICAL STRUCTURE / Unknown 01/12/2021 01/16/2021 11:18 AM EDT Narrative [facility] - 01/17/2021 1:02 PM EDT Assay performed using Ravindra Ty 4800 system utilizing Real-Time PCR to amplify target HPV DNA. This system specifically identifies HPV16 and HPV18 while concurrently detecting the other twelve high risk types (31,33,35,39,45,51,52,56,58,59,66,68). us Chris Crowell MD BODY FLUIDS AND STOOLS O RDERABLES Final Result [facility] [address] [place] [address] * Thinprep Pap Smear (01/12/2021) Case Report Gynecologic Cytology Report Case: [id number] Authorizing Provider: Chris Crowell MD Collected: 01/12/2021 Ordering Location: [facility] Received: 01/16/2021 11:18 AM Hospital Lab First Screen: Suzanne Veronica Rescreen: Xin Pereira Specimen: THINPREP PAP SMEAR, Cervix / Endocervix 01/25/2021 3:05 PM EDT [facility] LMP - 01/25/2021 3:05 PM EDT [facility] Interpretation Negative for intraepithelial lesion or malignancy 01/25/2021 3:05 PM EDT [facility] at 1505 EDT Specimen Adequacy Satisfactory for evaluation, endocervical/silverman sformation zone component absent/insufficie nt 01/25/2021 3:05 PM EDT [facility] Educational Note The Pap smear is a screening test for the detection of cervical cancer and its precursor lesions. False positive and false negative results can occur. The test should be performed at regular intervals, and positive results should be confirmed before definitive therapy. Additional testing methods may be helpful in detecting abnormalities or in clinical management. The specimen has been analyzed by the ThinPrep imaging system, an automated imaging and review system which assists the laboratory in evaluating cells on ThinPrep tests. Following automated imaging selected juan from every slide are reviewed by a house supervisor. Specimen processing and Primary Screening performed at: [address] [address] 01/25/2021 3:05 PM EDT [facility] HPV Results HPV 16 : Negative HPV 18 : Negative HPV, Other HR Types : Negative Assay performed using Ravindra Ty 4800 system utilizing Real-Time PCR to amplify target HPV DNA. This system specifically identifies HPV16 and HPV18 while concurrently detecting the other twelve high risk types (31,33,35,39,45,5 1,52,56,58,59,66, 68). These HPV results have been electronically added to this report as an aid for patient management. HPV testing performed at: [address] [address] 01/25/2021 3:05 PM EDT [facility] Pap, Liquid Based ENDOCERVICAL STRUCTURE / Unknown 01/12/2021 01/16/2021 11:18 AM EDT Chris Crowell MD PATHOLOGY/CYTOLOGY ORDER CARMEN Final Result [facility] [address] [place] [address] * HIV 1/2 Screen (4th Generation) (2020 10:09 AM EST) HIV 1-2 Screen Negative Negative 2020 9:02 PM EST [facility] Blood BLOOD SPECIMEN / Unknown 2020 10:09 AM EST 2020 4:53 PM EST Narrative [facility] - 2020 9:02 PM EST This assay screens for the presence of HIV-1, HIV-2 antibodies and for the presence of HIV-1 antigen. Test performed using MLW SquaredAS immunoassay system Chris Crowell MD LAB BLOOD ORDERABLES Fin al Result Performing Organization Address City/[facility]/ZIP Co de Phone Number [facility] [place] [address] from Last 3 Months or Most Recently Relevant to Health Maintenance Insurance [id number] (Home) [address] [place] [address] [facility] OUT OF STATE [facility] Advance Directives For more information, please contact: [phone] * Full Code (Latest Code Status on File) Date Activated Date Inactivated Comments 11/25/2020 8:36 PM 11/27/2020 8:00 PM * Full Code Date Activated Date Inactivated Comments 11/25/2020 1:31 AM 11/25/2020 4:37 PM Care Teams Voip Network Technician Relationship Specialty Start Date End Date Jose Cruz Marquez MD [address] [place] [address] PCP - General Family Medicine 07/17/20
--- OUTSIDE RECORDS SUMMARY | 2024-12-03 12:00 | XMS_ITS | Clinical Summary ---
Author Organization [facility] Address [id number] [address] [place] [address] Care Team Providers Care Wireless Watcher Name Role Phone Jose Cruz Marquez MD Primary Care Provider [phone] Allergies No known active allergies Medications docusate sodium (COLACE) 100 mg capsule Take 100 mg by mouth 2 (two) times a day. Active no115/iron/folic acid ( 19 ORAL) Take by mouth. Active ibuprofen (ADVIL,MOTRIN) 800 mg tablet Take 800 mg by mouth every 6 (six) hours as needed for pain. Active labetaloL (NORMODYNE) 200 mg tablet Take 1 tablet (200 mg total) by mouth every 12 (twelve) hours. 60 tablet 12/03/2020 Active NIFEdipine XL (PROCARDIA XL) 60 mg 24 hr tablet Take 1 tablet (60 mg total) by mouth every 12 (twelve) hours. 60 tablet 12/03/2020 Active Active Problems Problem Noted Date Diagnosed Date Preeclampsia 11/29/2020 Immunizations No known immunizations Family History Medical History Relation Name Comments Drug abuse Father Heart disease Maternal Aunt Heart disease Maternal Grandfather Heart disease Maternal Uncle Other Mother Cancer Paternal Grandfather Relation Name Status Comments Brother Alive Daughter Alive Father Maternal Aunt Maternal Grandfather Maternal Uncle Mother Paternal Grandfather Paternal Grandmother Sister Alive Social History Tobacco Use Types Packs/Day Years Used Date Smoking Tobacco: Never Alcohol Use Standard Drinks/Week Comments Not Currently 0 (1 standard drink = 0.6 oz pur e alcohol) Comments No Sex and Gender Information Value Date Recorded Sex Assigned at Not on file Legal Sex Female 10:46 AM EDT Gender Identity Not on file Sexual Orientation Not on file Last Filed Vital Signs Vital Sign Reading Time Taken Comments Blood Pressure 150/87 12/03/2020 8:[address] Faulkner and Dr. Gallagher notified Pulse 88 12/03/2020 8:00 AM EDT Temperature 36.6 C (97.9 F) 12/03/2020 8:00 AM EDT Respiratory Rate 18 12/03/2020 8:00 AM EDT Oxygen Saturation 96% 11/30/2020 6:0 0 AM EDT Inhaled Oxygen Concentration - - Weight 82.4 kg (181 lb 10.5 oz) 12/03/2020 4:00 AM EDT Height 154.9 cm (5' 1 ) 11/29/2020 1:03 PM EDT Body Mass Index 34.32 11/29/2020 1:03 PM EDT Plan of Treatment Health Maintenance Due Date Last Done Comments Depression Screening 2004 Tobacco Screening 2004 Adult BMI Screening 2010 DTaP,Tdap and Td Vaccines (1 - Tdap) 2011 Pap Smear 2013 Influenza Vaccine 02/28/2025 Medical Devices Not on file Insurance Advance Directives * Full Code (Latest Code Status on File) Date Activated Date Inactivated Comments 11/29/2020 12:29 PM 12/03/2020 1:13 PM Care Teams Wireless Watcher Relationship Specialty Start Date End Date Jose Cruz Marquez MD PCP - General Family Medicine 11/28/20
--- OUTSIDE RECORDS SUMMARY | 2024-12-03 12:00 | XMS_ITS | Patient Health Record ---
Author Organization [employer] [facility] Address [address] [place] [address] Care Team Providers Care Postage Machine Operator Name Role Phone Yuki Alvares Primary Care Provider [phone] Reason For Referral No Information Problems Problem Type SNOMED Code ICD Code Onset Dates Problem Status W/U Status Risk Notes Problem Unspecified Depressive Disorder (F32.9) Active confirmed Plan Of Treatment No Information Insurance Providers Payer Name Payer Address Payer Phone Subscriber Number Group Number Insured Name Patient Relationship to Insured Coverage Start Date Coverage End Date ANTHEM Primary [address] [place] [phone] [id number] BRANDT WINSTON Self - patient is the insured 1
--- OUTSIDE RECORDS SUMMARY | 2024-12-03 12:00 | XMS_ITS | Encounter Summary ---
Author Organization [facility] Address [address] [place] [address] Care Team Providers Care Pig Lead Melter Helper Name Role Phone Jose Cruz Marquez MD Primary Care Provider [phone] Encounter Details Date Type Department Care Team (Late st Contact Info) Description 02/19/2022 Abstract [facility] Obstetrics and Gynecology [address] [place] [id number] Alee Finney RN Social History Tobacco Use Types Packs/Day Years [...] Orientation Straight 10/15/2021 2: 21 PM EDT documented as of this encounter Last Filed Vital Signs Vital Sign Reading Time Taken Comments Blood Pressure 155/96 01/12/2021 1:15 PM EDT Pulse - - Temperature - - Respiratory Rate - - Oxygen Saturation - - Inhaled Oxygen Concentration - - Weight - - Height 154.9 cm (5' 1 ) 01/12/2021 1:15 PM EDT Body Mass Index - - documented in this encounter Plan of Treatment Not on file documented as of this encounter Visit Diagnoses Not on filedocumented in this encounter Care Teams Pig Lead Melter Helper Relationship Specialty Start Date End Date Jose Cruz Marquez MD [address] [place] [address] PCP - General Family Medicine 07/17/20 documented as of this encounter
--- OUTSIDE RECORDS SUMMARY | 2024-12-03 12:00 | XMS_ITS | Encounter Summary ---
Author Organization [facility] Address [address] [place] [address] Care Team Providers Care Clay Dry Press Helper Name Role Phone Jose Cruz Marquez MD Primary Care Provider [phone] Encounter Details Date Type Department Care Team (Late st Contact Info) Description 11/29/2024 Clinisync Result Encounter [facility] External Department Unsolicited Una John PA [address] [place] [address] [place] [address] Social History Tobacco Use Types Packs/Day Years [...] Procedure Name Priority Date/Time Associated Diagnosis Comments IGP,APTIMA HPV,AGE GDLN Routine 11/29/2024 3:34 PM EDT documented in this encounter Results * IGP,APTIMA HPV,AGE GDLN (11/29/2024 3:34 PM EDT) AGE GDLN ACOG TESTING Note . [facility] Comment: TESTS RESULT FLAG UNITS REF RANGE LAB Clinician Provided Cytology Information Source.............Cervix;Endocervix No. of containers..01 ThinPrep Vial Age Algo AC Lina... 32 FLAG LEGEND: L-Low Normal,H-High Normal,LL-Alert Low,HH-Alert High <-Panic Low,>-Panic High,A-Abnormal,AA-Critical Abnormal Performed at: 01 =[facility] [address] Angelina Stewart MD, IGP, APTIMA HPV, RFX 16/18,45 Note . [facility] Comment: TESTS RESULT FLAG UNITS REF RANGE LAB DIAGNOSIS: 02 NEGATIVE FOR INTRAEPITHELIAL LESION OR MALIGNANCY. Specimen adequacy: 02 Satisfactory for evaluation. No endocervical component is identified. Performed by: Nikki Miller Supervisor [facility] . 02 Note: Note 02 The Pap smear is a screening test designed to aid in the detection of premalignant and malignant conditions of the uterine cervix. It is not a diagnostic procedure and should not be used as the sole means of detecting cervical cancer. Both false-positive and false-negative reports do occur. Test Methodology: Note 02 The [employer] was unable to read this specimen. Therefore a manual review was performed. FLAG LEGEND: L-Low Normal,H-High Normal,LL-Alert Low,HH-Alert High <-Panic Low,>-Panic High,A-Abnormal,AA-Critical Abnormal Performed at: [address] [address] Angelina Stewart MD, HPV Genotype Reflex Note 02 Criteria not met, HPV Genotype not performed. Criteria not met, HPV Genotype not performed. HPV APTIMA Negative Negative TB Comment: This nucleic acid amplification test detects fourteen high- risk HPV types (16,18,31,33,35,39,45,51,52,56,58,59,66,68) without differentiation. Performed at: [address] [id number] Rn Burn: Angelina Stewart MD, Phone: [phone] Performed at: [address] [id number] Rn Burn: Angelina Stewart MD, Phone: [phone] 11/29/2024 3:34 PM EDT 11/29/2024 9:38 PM EDT Narrative [facility] - 12/03/2024 10:09 AM EDT BRUSH-SPATULA CERVIX ENDOCERVIX us Una GARZA LAB BLOOD ORDERABLES Final Resul t [facility] TB documented in this encounter Visit Diagnoses Not on filedocumented in this encounter Care Teams Clay Dry Press Helper Relationship Specialty Start Date End Date Jose Cruz Marquez MD [address] [address] PCP - General Family Medicine 11/05/22 documented as of this encounter
--- OUTSIDE RECORDS SUMMARY | 2024-12-03 12:00 | XMS_ITS | Encounter Summary ---
Author Organization [facility] Address [address] [place] [address] Care Team Providers Care Mine Development Engineer Name Role Phone Jose Cruz Marquez MD Primary Care Provider Encounter Details Date Type Department Care Team (Late st Contact Info) Description 11/29/2024 Bamboo flowsheet [facility] OB [address] [facility] [place] [address] Una John PA [address] [place] [address] Social History Tobacco Use Types Packs/Day Years [...] on filedocumented in this encounter Care Teams Mine Development Engineer Relationship Specialty Start Date End Date Jose Cruz Marquez MD [address] [place] [address] PCP - General Family Medicine 11/05/22 documented as of this encounter
--- OUTSIDE RECORDS SUMMARY | 2024-12-03 12:00 | XMS_ITS | Encounter Summary ---
Author Organization [facility] Address [address] [place] [address] [place] [address] Care Team Providers Care Marriage And Family Teacher Name Role Phone Jose Cruz Marquez MD Unavailable [phone] Jose Cruz Marquez MD Primary Care Provider + [phone] Ronda Reyes NP Unavailable [phone] Encounter Details Date Type Department Care Team (Late st Contact Info) Description 04/18/2023 Clinisync Result Encounter [facility] External Department Unsolicited Shay Vaughn, DO [address] [facility] [place] [address] Social History Tobacco Use Types Packs/Day Years [...] Procedure Name Priority Date/Time Associated Diagnosis Comments BI US BREAST LIMITED RIGHT 04/18/2023 2:57 PM EDT documented in this encounter Results * Right breast US limited (04/18/2023 2:57 PM EDT) Anatomical Region Laterality Modality Breast Right Ultrasound 04/18/2023 2:57 PM EDT Narrative 04/18/2023 2:57 PM EDT The [address] [address] Ultrasound Report Signed Patient: BRANDT OSORIO MR#: [id number] : 1990 Acct:[id number] Age/Sex: 32 / F ADM Date: 04/18/23 Loc: MAMMO Attending Dr: Shay Vaughn D.O. Ordering Physician: Shay Vaughn D.O. Date of Service: 04/18/23 Procedure(s): US breast RT limited Accession Number(s): [id number] cc: Shay Vaughn D.O.; Physician,Non-Staff Jayson Patient: BRANDT OSORIO. Exam Date: 04/18/2023 : 1990 Gender:F Ordering : DR Shay Vaughn . Admission #: [id number] Family : Non-Staff Physician Order #: [id number] CLICK HERE TO VIEW EXAM RADIOLOGY REPORT [...] lung cancer at age 70. LOCATION: [facility] BREAST COMPOSITION: Scattered areas fibroglandular density. FINDINGS: DIAGNOSTIC CATEGORY 2--BENIGN FINDING: Scattered benign-appearing lymph nodes are present. RIGHT BREAST: No significant suspicious finding. Comins marker indicates a palpable mass lower inner [...] Dictated By: Nakul Silvestre M.D. Signed By: 04/23/23 0706 DD/ 1457 TD/TT: Fish Smoker: Procedure Note Radiology, Radiologist, MD - 04/23/2023 The [place] [id number] Ultrasound Report Signed Patient: BRANDT OSORIO LMR#: [id number] : 1990Acct:[id number] Age/Sex: 32 / FADM Date: 04/18/23 Loc: MAMMO Attending Dr: Shay Vaughn D.O. Ordering Physician: Shay Vaughn D.O. Date of Service: 04/18/23 Procedure(s): US breast RT limited Accession Number(s): [id number] cc: Shay Vaughn D.O.; Physician,Non-Staff Jayson Patient: BRANDT OSORIO Exam Date: 04/18/2023 : 1990 Gender:F Ordering : DR Shay Vaughn . Admission #: [id number] Family : Non-Staff Physician Order #: [id number] CLICK HERE TO VIEW EXAM RADIOLOGY REPORT [...] lung cancer at age 70. LOCATION: [facility] BREAST COMPOSITION: Scattered areas fibroglandular density. FINDINGS: DIAGNOSTIC CATEGORY 2--BENIGN FINDING: Scattered benign-appearing lymphnodes are present. RIGHT BREAST: No significant suspicious finding. Comins markerindicates a palpable mass lower inner quadrant. [...] 14:57 Dictated By: Nakul Silvestre M.D. Signed By:04/23/23 0706 DD/ 1457 TD/TT: Fish Smoker: us Shay Vaughn DO IMG US PROCEDURES Final Result documented in this encounter Visit Diagnoses Not on filedocumented in this encounter Care Teams Marriage And Family Teacher Relationship Specialty Start Date End Date Jose Cruz Marquez MD [address] [address] PCP - [place] [employer] 08/09/22 Jose Cruz Marquez MD [address] [address] PCP - General Family Medicine 11/05/22 Ronda Reyes NP [address] [place] [address] PCP - [place] [employer] 12/29/23 documented as of this encounter
--- OUTSIDE RECORDS SUMMARY | 2024-12-03 12:00 | XMS_ITS | Encounter Summary ---
Author Organization [facility] Address [address] [place] [address] Care Team Providers Care Underwriting Technician Name Role Phone Jose Cruz Marquez MD Primary Care Provider + [phone] Ronda Reyes ENTRY LEVEL INSTALLATION TECHNICIAN Unavailable [phone] Encounter Details Date Type Department Care Team (Late st Contact Info) Description 07/14/2024 Orders Only [facility] OB [email or web address] [id number] Ronda Pond LPN [address] [place] [id number] Social History Tobacco Use Types Packs/Day Years [...] Procedure Name Priority Date/Time Associated Diagnosis Comments PAP SMEAR Routine 04/02/2023 12:00 AM EDT documented in this encounter Results * Pap Smear (04/02/2023 12:00 AM EDT) Swab Cervical swab / Unknown us [facility] Nurse LAB CYTOLOGY ORDERABLES Final Result EXTERNAL LAB documented in this encounter Visit Diagnoses Not on filedocumented in this encounter Care Teams Underwriting Technician Relationship Specialty Start Date End Date Jose Cruz Marquez MD [address] [address] PCP - General Family Medicine 11/05/22 Ronda Reyes NP [address] [place] [address] PCP - [place] 12/29/23 documented as of this encounter
[2024-12-03 12:27] LABS: Bilirubin Urine NEGATIVE (NEGATIVE); Blood Urine LARGE (NEGATIVE); Clarity Urine CLOUDY (CLEAR); Color Urine LT. YELLOW (YELLOW); Glucose Urine UA NEGATIVE (NEGATIVE); Ketones Urine NEGATIVE (NEGATIVE); Leukocyte Esterase Urine SMALL (NEGATIVE); Nitrite Urine NEGATIVE (NEGATIVE); Protein Urine NEGATIVE (NEG/TRACE); Urobilinogen Urine 0.2 EU/dL (0.2-1.0); pH Urine 6.5 (5.0-9.0)
[2024-12-03 12:52] LABS: Bacteria Urine SMALL #/HPF (NONE SEEN); Cast Seen? NONE SEEN #/LPF (NONE SEEN); Crystals Seen? None Seen #/HPF (None Seen); Mucus Urine NONE SEEN (NONE SEEN); Squamous Epithelial Cell Urine FEW #/LPF (NONE/RARE); Urine Culture Indicated YES-FRMC
[2024-12-03 12:53] LABS: RBC Urine >100 #/HPF (0-2)
--- NOTE | 2024-12-03 13:30 | CT_ITS ---
The [address] [address] Patient Name: BRANDT OSORIO MRN: [id number] date: 1990 Sex: F Assigned Patient Location: ER Current Patient Location: Accession/Order Number: [id number] Exam Date: 12/03/2024 14:07 Report Date: 12/03/2024 14:12 At the request of: ARCHIE BENZ NP Procedure: CT abdomen pelvis wo con CT ABDOMEN AND PELVIS WITHOUT CONTRAST CLINICAL DATA: Right flank and lower quadrant pain. History of stones. COMPARISON: None Spiral images were obtained through the abdomen and pelvis without contrast. This CT exam was performed using one or more following dose reduction techniques: Automated exposure control, adjustment of the mA and/or kV according to patient size, or use of iterative reconstruction technique. Limited cuts through the lung bases show no contributory findings. Evaluation of the intra-abdominal organs is slightly limited by the absence of contrast. The gallbladder is surgically absent. No common duct stones are noted. No intrahepatic masses are seen. The spleen, pancreas and adrenal glands show no acute findings. No renal calculi are noted. No hydronephrosis is seen. There is no ureteral dilatation or stones. The abdominal aorta is normal caliber. There are small retroperitoneal and mesenteric lymph nodes. No ascites is seen. The small bowel loops are not dilated. Air and stool are visualized along the colon. Slight levoscoliotic curvature is present at the spine. Images through the pelvis show no appendiceal inflammation. There is no dilated small bowel. A small amount of distal colonic stool is seen. There is no diverticular disease. The reproductive organs are age-appropriate. No urinary bladder abnormalities are visualized. There is no ascites. CT/CT abdomen pelvis wo con IMPRESSION: NO OBSTRUCTIVE UROPATHY OR STONE DISEASE. NO ACUTE FINDINGS. Impression dictated by: Ifrah Ramirez M.D. 12/03/2024 2:12 PM Dictation Location: [place] [address] Electronically authenticated by: [id number] Y Date: 12/03/2024 14:12
--- NOTE | 2024-12-03 13:32 | ED_ITS ---
Documented by User: Julian Rodriguez NP 12/03/24 14:50 HPI HPI - General Adult General Chief complaint: Abdominal Pain Stated complaint: RIGHT SIDED PAIN Time Seen by Provider: 12/03/24 12:14 Source: patient Mode of arrival: walk-in History of Present Illness HPI narrative: Patient is a 34-year-old female who presents to the emergency department today for evaluation concerns for right upper quadrant/right flank pain. She endorses this pain began 2 weeks prior and reports the pain to be colicky in nature. She states the pain symptoms became worse today and reports associated symptoms of nausea without vomiting. No chest pain or shortness of breath. Denies any fever/chills. No vomiting or diarrhea. She denies any urinary symptoms. Denies any history of kidney stones. She reports remote history of a cholecystectomy. Related Data Previous Rx's ?Medication ?Instructions ?Recorded cephalexin 500 mg capsule 500 mg PO BID 7 days #14 cap s 12/03/24 Allergies Allergy/AdvReac Type Severity Reaction Status Date / Time No Known Drug Allergies Allergy Verified 12/03/24 12:05 Opioid HPI Opioid Management Most Recent Opioid Data: Last Pain Scale 8 Today, 14:05 Last MAR Pain Assessment Today, 13:59 Review of Systems ROS Status of ROS 10 or more systems reviewed and unremark able except as noted in history and below PFSH PFSH Social History Little interest or pleasure in doing things: not at all Feeling down, depressed, or hopeless: not at all Exam Narrative Exam Narrative: Constituational: Awake/ alert, no apparent distress, well hydrated, + obese HENMT: normocephalic, external ears normal, moist oral mucous membranes and oropharynx normal Eyes: EOMI and conjunctivae normal Neck: ROM intact Chest: inspection of chest normal Respiratory: Normal respiratory effort, clear to auscultation bilaterally Cardio: regular rate and regular rhythm GI: + Mild discomfort to palpation over RUQ, abdomen is otherwise soft to palpation and non-tender, lungs, normal bowel sounds Back: + Moderate R CVA tenderness, otherwise normal inspection of back MSK: ROM intact, +NVI Skin: no rashes or petechiae Neuro: no focal deficits Psych: mental status grossly normal Constitutional Vital Signs, click to edit/add: Last Vital Signs Temp 98.3 F 12/03/24 11:58 Pulse 72 12/03/24 11:58 Resp 16 12/03/24 11:58 BP 130/98 H 12/03/24 11:58 Pulse Ox 97 12/03/24 11:58 O2 Del Method Room Air 12/03/24 11:58 Course Vital Signs Vital signs: Vital Signs Temperature 98.3 F 12/03/24 11:58 Pulse Rate 72 12/03/24 11:58 Respiratory Rate 16 12/03/24 11:58 Blood Pressure 130/98 H 12/03/24 11:58 Pulse Oximetry 97 12/03/24 11:58 Oxygen Delivery Method Room Air 12/03/24 11:58 Temperature 98.3 F 12/03/24 11:58 Pulse Rate 72 12/03/24 11:58 Respiratory Rate 16 12/03/24 11:58 Blood Pressure 130/98 H 12/03/24 11:58 Pulse Oximetry 97 12/03/24 11:58 Oxygen Delivery Method Room Air 12/03/24 11:58 Medical Decision Making MDM Narrative Medical decision making narrative: Well-appearing 34-year-old female who presented to the emergency department today for evaluation concerns for right flank pain. Initial examination vital signs overall stable with exception patient noted to have some moderate right-sided CVA discomfort with some radiation of discomfort to the right upper quadrant but overall is mild in nature. Otherwise no acute abdominal findings on exam. Patient was seen during ED surge volume and urinalysis have been obtained during triage assessment by nursing. Urinalysis does have some occult blood present and there is evidence of UTI with noted leukocytes and bacteria in the urine. There is elevated concern for possible kidney stone and subsequent CT imaging of the abdomen pelvis obtained that overall had no critical findings including renal calculi. Labs stable and show ed no significant leukocytosis, anemia, thrombocytopenia. Electrolytes including renal and hepatic function stable. Initial supportive measures of IV fluids, Zofran, morphine and on reevaluation she reported an overall improvement in condition. She is tolerating oral intake with no subsequent nausea or vomiting. Clinical impression neuritis in the setting of UTI. Discussed these findings with the patient including recommendations for supportive care. Will discharge home with cephalexin antibiotic therapy. Advised on follow-up with patient's primary care provider for reevaluation. Discussed signs and symptoms of any worsening condition and when to consider reevaluation by the emergency department. Patient verbalized an understanding of this and is agreeable with the plan to be discharged home. Medical Records Medical records reviewed: Yes I reviewed the patient's medical records Lab Data Lab results reviewed: Yes I reviewed the patient's lab results Labs: Lab Results 12/03/24 12/03/24 Range/Units 12:05 13:50 WBC 9.7 (4.0-11.0) 10^3/uL RBC 4.38 (4.20-5.40) 10^6/uL Hgb 12.3 (12.0-16.0) g/dL Hct 36.1 (36.0-48.0) % MCV 82.4 (81.0-99.0) fL MCH 28.1 (26.7-34.0) pg MCHC 34.1 (29.9-35.2) g/dL RDW 13.3 (11.0-15.0) % Plt Count 293 (150-450) 10^3/uL MPV 9.5 (9.5-13.5) fL Neut % (Auto) 50.9 (43.0-75.0) % Lymph % (Auto) 33.5 (20.5-60.0) % Coke % (Auto) 5.6 (1.7-12.0) % Eos % (Auto) 9.2 H (0.9-7.0) % Baso % (Auto) 0.7 (0.2-2.0) % Neut # (Auto) 5.0 (1.4-6.5) 10^3/uL Lymph # (Auto) 3.3 (1.2-3.8) 10^3/uL Coke # (Auto) 0.5 (0.3-0.8) 10^3/uL Eos # (Auto) 0.9 H (0.0-0.7) 10^3/uL Baso # (Auto) 0.1 (0.0-0.1) 10^3/uL Abs Immat Gran (auto) 0.01 (0.00-0.03) 10^3/uL Imm/Tot Granulo (auto) 0.1 (0.0-0.5) % Sodium 140 (136-145) mmol/L Potassium 3.8 (3.5-5.1) mmol/L Chloride 106 (98-107) mmol/L Carbon Dioxide 24.1 (21.0-32.0) mmol/L Anion Gap 13.7 BUN 12.0 (7.0-18.0) mg/dL Creatinine 0.62 (0.55-1.02) mg/dL Est GFR ( Amer) >60 (>=60 mL/min/1.73m^2) Est GFR (Non-Af Amer) >60 (>=60 mL/min/1.73m^2) BUN/Creatinine Ratio 19.4 Glucose 90 (74-106) mg/dL Calcium 9.3 (8.5-10.1) mg/dL Total Bilirubin 0.2 (0.2-1.0) mg/dL AST 17 (15-37) U/L ALT 29 (14-59) U/L Alkaline Phosphatase 110 (46-116) U/L Total Protein 6.8 (6.4-8.2) g/dL Albumin 3.2 L (3.4-5.0) g/dL Globulin 3.6 g/dL Albumin/Globulin Ratio 0.9 Lipase 39.0 (16.0-77.0) U/L Urine Color Lt. yellow (YELLOW) Urine Clarity Cloudy A (CLEAR) Urine pH 6.5 (5.0-9.0) Ur Specific [place] 1.010 (1.005-1.025) Urine Protein Negative (NEG/TRACE) mg/dL Urine Glucose (UA) Negative (NEGATIVE) mg/dL Urine Ketones Negative (NEGATIVE) mg/dL Urine Occult Blood Large A (NEGATIVE) Urine Nitrite Negative (NEGATIVE) Urine Bilirubin Negative (NEGATIVE) Urine Urobilinogen 0.2 (0.2-1.0) EU/dL Ur Leukocyte Esterase Small A (NEGATIVE) Urine RBC >100 A (0-2) #/HPF Urine WBC 2-5 A (NONE SEEN) #/HPF Ur Squamous Epith Cells Few A (NONE/RARE) #/LPF Urine Crystals None seen (None Seen) #/HPF Urine Bacteria Small A (NONE SEEN) #/HPF Urine Casts None seen (NONE SEEN) #/LPF Urine Mucus None seen (NONE SEEN) Ur Culture Indicated? [facility] [place] Urine HCG, Qual Negative (NEGATIVE) Imaging Data CT scan - abdomen: Attestation: I have reviewed the pertinent imaging results. Radiologist's impression: ITS Impressions Abdomen/Pelvis CT 12/03/24 13:30 IMPRESSION: NO OBSTRUCTIVE UROPATHY OR STONE DISEASE. NO ACUTE FINDINGS. Impression dictated by: Ifrah Ramirez M.D. 12/03/2024 2:12 PM Dictation Location: [place] [address] Electronically authenticated by: [id number] Y Date: 12/03/2024 14:12 Discharge Plan Discharge Chief Complaint: Abdominal Pain Clinical Impression: Pyelonephritis Patient Disposition: Home, Self-Care Prescriptions / Home Meds: New cephalexin 500 mg capsule 500 mg PO BID 7 Days Qty: 14 0RF Print Language: British Instructions: Kidney Infection (ED) Additional Instructions: Take antibiotics as prescribed. May take Tylenol or ibuprofen as needed for any pain. Stay hydrated and drink plenty of fluids. Please up with your primary care provider for reevaluation as discussed. Referrals: YONATAN MARTINEZ [Primary Care Provider, Family Practice] - 1 week Discharge Date/Time: 12/03/24 15:44 Documented by User: Sedrick Lares MD 12/03/24 20:01 HPI HPI - General Adult General Chief complaint: Abdominal Pain Stated complaint: RIGHT SIDED PAIN Time Seen by Provider: 12/03/24 12:14 Related Data Previous Rx's ?Medication ?Instructions ?Recorded cephalexin 500 mg capsule 500 mg PO BID 7 days #14 cap s 12/03/24 Allergies Allergy/AdvReac Type Severity Reaction Status Date / Time No Known Drug Allergies Allergy Verified 12/03/24 12:05 Opioid HPI Opioid Management Most Recent Opioid Data: Last Pain Scale 8 Today, 14:05 Last MAR Pain Assessment Today, 13:59 PFSH PFSH Social History Little interest or pleasure in doing things: not at all Feeling down, depressed, or hopeless: not at all Exam Constitutional Vital Signs, click to edit/add: Last Vital Signs Temp 98.3 F 12/03/24 11:58 Pulse 72 12/03/24 11:58 Resp 16 12/03/24 11:58 BP 130/98 H 12/03/24 11:58 Pulse Ox 97 12/03/24 11:58 O2 Del Method Room Air 12/03/24 11:58 Course Vital Signs Vital signs: Vital Signs Temperature 98.3 F 12/03/24 11:58 Pulse Rate 72 12/03/24 11:58 Respiratory Rate 16 12/03/24 11:58 Blood Pressure 130/98 H 12/03/24 11:58 Pulse Oximetry 97 12/03/24 11:58 Oxygen Delivery Method Room Air 12/03/24 11:58 Temperature 98.3 F 12/03/24 11:58 Pulse Rate 72 12/03/24 11:58 Respiratory Rate 16 12/03/24 11:58 Blood Pressure 130/98 H 12/03/24 11:58 Pulse Oximetry 97 12/03/24 11:58 Oxygen Delivery Method Room Air 12/03/24 11:58 Medical Decision Making MDM Narrative Medical decision making narrative: Well-appearing 34-year-old female who presented to the emergency department today for evaluation concerns for right flank pain. Initial examination vital signs overall stable with exception patient noted to have some moderate right-sided CVA discomfort with some radiation of discomfort to the right upper quadrant but overall is mild in nature. Otherwise no acute abdominal findings on exam. Patient was seen during ED surge volume and urinalysis have been obtained during triage assessment by nursing. Urinalysis does have some occult blood present and there is evidence of UTI with noted leukocytes and bacteria in the urine. There is elevated concern for possible kidney stone and subsequent CT imaging of the abdomen pelvis obtained that overall had no critical findings including renal calculi. Labs stable and showed no significant leukocytosis, anemia, thrombocytopenia. Electrolytes including renal and hepatic function stable. Initial supportive measures of IV fluids, Zofran, morphine and on reevaluation she reported an overall improvement in condition. She is tolerating oral intake with no subsequent nausea or vomiting. Clinical impression neuritis in the setting of UTI. Discussed these findings with the patient including recommendations for supportive care. Will d ischarge home with cephalexin antibiotic therapy. Advised on follow-up with patient's primary care provider for reevaluation. Discussed signs and symptoms of any worsening condition and when to consider reevaluation by the emergency department. Patient verbalized an understanding of this and is agreeable with the plan to be discharged home. I, Dr Lares, have reviewed the above progress note and course of action in the ER; agree with the above. I have personally gone over history and physical, and discussed disposition and treatment plan with the PA. Lab Data Labs: Lab Results 12/03/24 12/03/24 Range/Units 12:05 13:50 WBC 9.7 (4.0-11.0) 10^3/uL RBC 4.38 (4.20-5.40) 10^6/uL Hgb 12.3 (12.0-16.0) g/dL Hct 36.1 (36.0-48.0) % MCV 82.4 (81.0-99.0) fL MCH 28.1 (26.7-34.0) pg MCHC 34.1 (29.9-35.2) g/dL RDW 13.3 (11.0-15.0) % Plt Count 293 (150-450) 10^3/uL MPV 9.5 (9.5-13.5) fL Neut % (Auto) 50.9 (43.0-75.0) % Lymph % (Auto) 33.5 (20.5-60.0) % Coke % (Auto) 5.6 (1.7-12.0) % Eos % (Auto) 9.2 H (0.9-7.0) % Baso % (Auto) 0.7 (0.2-2.0) % Neut # (Auto) 5.0 (1.4-6.5) 10^3/uL Lymph # (Auto) 3.3 (1.2-3.8) 10^3/uL Coke # (Auto) 0.5 (0.3-0.8) 10^3/uL Eos # (Auto) 0.9 H (0.0-0.7) 10^3/uL Baso # (Auto) 0.1 (0.0-0.1) 10^3/uL Abs Immat Gran (auto) 0.01 (0.00-0.03) 10^3/uL Imm/Tot Granulo (auto) 0.1 (0.0-0.5) % Sodium 140 (136-145) mmol/L Potassium 3.8 (3.5-5.1) mmol/L Chloride 106 (98-107) mmol/L Carbon Dioxide 24.1 (21.0-32.0) mmol/L Anion Gap 13.7 BUN 12.0 (7.0-18.0) mg/dL Creatinine 0.62 (0.55-1.02) mg/dL Est GFR ( Amer) >60 (>=60 mL/min/1.73m^2) Est GFR (Non-Af Amer) >60 (>=60 mL/min/1.73m^2) BUN/Creatinine Ratio 19.4 Glucose 90 (74-106) mg/dL Calcium 9.3 (8.5-10.1) mg/dL Total Bilirubin 0.2 (0.2-1.0) mg/dL AST 17 (15-37) U/L ALT 29 (14-59) U/L Alkaline Phosphatase 110 (46-116) U/L Total Protein 6.8 (6.4-8.2) g/dL Albumin 3.2 L (3.4-5.0) g/dL Globulin 3.6 g/dL Albumin/Globulin Ratio 0.9 Lipase 39.0 (16.0-77.0) U/L Urine Color Lt. yellow (YELLOW) Urine Clarity Cloudy A (CLEAR) Urine pH 6.5 (5.0-9.0) Ur Specific [place] 1.010 (1.005-1.025) Urine Protein Negative (NEG/TRACE) mg/dL Urine Glucose (UA) Negative (NEGATIVE) mg/dL Urine Ketones Negative (NEGATIVE) mg/dL Urine Occult Blood Large A (NEGATIVE) Urine Nitrite Negative (NEGATIVE) Urine Bilirubin Negative (NEGATIVE) Urine Urobilinogen 0.2 (0.2-1.0) EU/dL Ur Leukocyte Esterase Small A (NEGATIVE) Urine RBC >100 A (0-2) #/HPF Urine WBC 2-5 A (NONE SEEN) #/HPF Ur Squamous Epith Cells Few A (NONE/RARE) #/LPF Urine Crystals None seen (None Seen) #/HPF Urine Bacteria Small A (NONE SEEN) #/HPF Urine Casts None seen (NONE SEEN) #/LPF Urine Mucus None seen (NONE SEEN) Ur Culture Indicated? [facility] [place] Urine HCG, Qual Negative (NEGATIVE) Imaging Data CT scan - abdomen: Radiologist's impression: ITS Impressions Abdomen/Pelvis CT 12/03/24 13:30 IMPRESSION: NO OBSTRUCTIVE UROPATHY OR STONE DISEASE. NO ACUTE FINDINGS. Impression dictated by: Ifrah Ramirez M.D. 12/03/2024 2:12 PM Dictation Location: [place] [address] Electronically authenticated by: [id number] Y Date: 12/03/2024 14:12 Discharge Plan Discharge Chief Complaint: Abdominal Pain Clinical Impression: Pyelonephritis Patient Disposition: Home, Self-Care Prescriptions / Home Meds: New cephalexin 500 mg capsule 500 mg PO BID 7 Days Qty: 14 0RF Print Language: British Instructions: Kidney Infection (ED) Additional Instructions: Take antibiotics as prescribed. May take Tylenol or ibuprofen as needed for any pain. Stay hydrated and drink plenty of fluids. Please up with your primary care provider for reevaluation as discussed. Referrals: YONATAN MARTINEZ [Primary Care Provider, Family Practice] - 1 week Discharge Date/Time: 12/03/24 15:44
--- NOTE | 2024-12-03 13:37 | PC.NURSE ---
pt to CT via wheelchair at this time.
[2024-12-03] MEDS: 0.9 % SODIUM CHLORIDE 1,000 ML 1000 ML IV (13:56)
[2024-12-03] MEDS: ONDANSETRON PF 4 MG/2 ML VIAL IV (13:57)
[2024-12-03] MEDS: MORPHINE SULFATE 2 MG/ML SYRINGE IV (13:59)
[2024-12-03 14:08] LABS: Basophils Absolute Auto 0.1 10^3/uL (0.0-0.1); Basophils Percent Auto 0.7 % (0.2-2.0); Eosinophils Absolute Auto 0.9 10^3/uL (0.0-0.7); Eosinophils Percent Auto 9.2 % (0.9-7.0); Hematocrit 36.1 % (36.0-48.0); Hemoglobin 12.3 g/dL (12.0-16.0); Immature Granulocytes Abs Auto 0.01 10^3/uL (0.00-0.03); Immature Granulocytes Pct Auto 0.1 % (0.0-0.5); Lymphocytes Absolute Auto 3.3 10^3/uL (1.2-3.8); Lymphocytes Percent Auto 33.5 % (20.5-60.0); Mean Corpuscular HGB Conc 34.1 g/dL (29.9-35.2); Mean Corpuscular Hemoglobin 28.1 pg (26.7-34.0); Mean Corpuscular Volume 82.4 fL (81.0-99.0); Mean Platelet Volume 9.5 fL (9.5-13.5); Monocytes Absolute Auto 0.5 10^3/uL (0.3-0.8); Monocytes Percent Auto 5.6 % (1.7-12.0); Neutrophils Percent Auto 50.9 % (43.0-75.0); Platelet Count 293 10^3/uL (150-450); Red Blood Count 4.38 10^6/uL (4.20-5.40); Red Cell Distribution Width 13.3 % (11.0-15.0); White Blood Count 9.7 10^3/uL (4.0-11.0)
[2024-12-03 14:22] LABS: Alanine Aminotransferase 29 U/L (14-59); Albumin Globulin Ratio 0.9; Albumin Level 3.2 g/dL (3.4-5.0); Alkaline Phosphatase 110 U/L (46-116); Anion Gap 13.7; Aspartate Amino Transferase 17 U/L (15-37); BUN Creatinine Ratio 19.4; Bilirubin Total 0.2 mg/dL (0.2-1.0); Calcium 9.3 mg/dL (8.5-10.1); Carbon Dioxide 24.1 mmol/L (21.0-32.0); Chloride 106 mmol/L (98-107); Estimated GFR (African America >60 (>=60 mL/min/1.73m^2); Estimated GFR (Non-African Ame >60 (>=60 mL/min/1.73m^2); Globulin 3.6 g/dL; Glucose 90 mg/dL (74-106); Potassium 3.8 mmol/L (3.5-5.1); Sodium 140 mmol/L (136-145); Total Protein 6.8 g/dL (6.4-8.2)
[2024-12-03 14:39] LABS: HCG Qualitative Urine* NEGATIVE (NEGATIVE); Internal Control Within Normal Limits
--- NOTE | 2024-12-03 15:15 | PC.NURSE ---
pt in ED room awaiting ride home from spouse. pt verbalizes understanding of having RN walk pt out of ED.
== END 2024-12-03 15:44 | disposition home or self-care (01) ==
PROVIDERS: Nurse Practitioner; Emergency Provider Emergency Medicine; PCP Family Medicine
DX: N12 Tubulo-interstitial nephritis, not specified as acute or chronic (principal); Z90.49 Acquired absence of other specified parts of digestive tract
CPT/HCPCS: 36415; 74176; 80053; 81001; 83690; 84703; 85025; 87086; 96374; 96375; 99285; J2270; J2405